=== PATIENT | female | born 1955 | race Caucasian/White ===

== ENCOUNTER 2019-11-27 09:58 | Outpatient (CLI) | payer OTHER, SELFPAY ==
--- NOTE | ~2019-11-27 | DEXA_ITS ---
Bone Density Report Name: Palak Marrero Age: 64 Sex: Female Ethnicity: White Date of : 1955 Indication: postmenopausal; height loss; prior fracture; cancer; Referring Provider: Angel Duong Study: Bone densitometry was performed. Exam Date: November 27, 2019 Accession number: [id number] Bone Density: Region BMD T-score Z-score Classification AP Spine (L1-L4) 1.031 -0.1 1.5 Normal Femoral Neck (Left) 0.722 -1.1 0.3 Osteopenia Total Hip (Left) 0.875 -0.5 0.6 Normal Total Hip Bilateral Avg 0.917 -0.2 0.9 Normal Femoral Neck (Right) 0.770 -0.7 0.7 Normal Total Hip (Right) 0.959 0.1 1.2 Normal World Health Organization criteria for BMD impression classify patients as: Normal (T-score at or above -1.0), Osteopenia (T-score between -1.0 and -2.5), or Osteoporosis (T-score at or below -2.5). 10-year Fracture Risk(1): Major Osteoporotic Fracture 12% Hip Fracture 0.8% Reported Risk Factors: [place] (), Neck BMD=0.722, BMI=38.0, previous fracture (1) FRAX(R) Version 3.08. Fracture probability calculated for an untreated patient. Fracture probability may be lower if the patient has received treatment. Previous Exams: Region Exam Age BMD T-score BMD Change BMD Change Date g/cm2 vs Baseline vs Previous AP Spine(L1-L4) 11/27/2019 64 1.031 -0.1 0.016(1.6%) 0.016(1.6%) 10/14/2014 58 1.014 -0.3 Total Hip(Left) 11/27/2019 64 0.875 -0.5 0.003(0.3%) 0.003(0.3%) 10/14/2014 58 0.872 -0.6 Total Hip(Right) 11/27/2019 64 0.959 0.1 0.077(8.7%)* 0.077(8.7%)* 10/14/2014 58 0.882 -0.5 *Denotes significance at 95% confidence level, LSC for AP Spine = 0.022 g/cm2, LSC for Total Hip = 0.027 g/cm2 Clinical Information Provided by Patient: Has had a low trauma fracture Has the following medical conditions: Cancer Patient maximum height was 67 Menopause Age: 46 Drinks caffeinated beverages Onset of menses at age 13 Number of children 0 Impression: The patient has low bone mass, based on the Left Femoral Neck T-score. The patient has an estimated ten-year risk of hip fracture of 0.8% and an estimated ten-year risk of major fracture of 12%, based on the WHO FRAX algorithm. The patient has risk factors, including: previous fracture. No significant bone loss was observed. Discussion: BONE DENSITY IS LOW AT ONE OR MORE SKELETAL SITES. This patient's lowest T-score is low at one or more skeletal sites. It meets
--- NOTE | ~2019-11-27 | MM_ITS ---
EXAMINATION: MM screening cody LT w jody HISTORY: Screening mammogram; status post right mastectomy for breast cancer in 2010. Recent cancer Muscle right mastectomy site. TECHNIQUE: Craniocaudal and mediolateral oblique 3-D tomosynthesis images were obtained and synthetic 2-D images were generated. CAD analysis was submitted and interpreted. COMPARISON: No prior mammogram is available for comparison at this institution. BREAST PARENCHYMAL COMPOSITION: There are scattered areas of fibroglandular density. FINDINGS: There is no evidence of suspicious mass, calcification, or architectural distortion to sugg est malignancy in either breast. There has been no suspicious interval change. IMPRESSION: 1. No mammographic evidence of malignancy. 2. Recommend routine screening mammography in one year. BI-RADS Category 1: Negative Reviewed, dictated and finalized at location A.
== END 2019-11-27 09:59 | disposition home or self-care (01) ==
PROVIDERS: Visit Provider Internal Medicine Hematology & Oncology
DX: Z12.31 Encounter for screening mammogram for malignant neoplasm of breast (principal); Z78.0 Asymptomatic menopausal state; M85.852 Other specified disorders of bone density and structure, left thigh
CPT/HCPCS: 77063; 77067; 77080

== ENCOUNTER 2020-03-12 11:57 | Outpatient (CLI) | payer OTHER, SELFPAY ==
--- NOTE | 2020-03-12 | ECG_ITS ---
Measurements Intervals Center [place] Rate: 73 P: 57 MI: 176 QRS: 67 QRSD: 134 T: 27 QT: 403 QTc: 445 Interpretive Statements SINUS RHYTHM VENTRICULAR PREMATURE COMPLEXES POSSIBLE LEFT ATRIAL ENLARGEMENT RIGHT BUNDLE BRANCH BLOCK BASELINE ARTIFACT- V4 ABNORMAL ECG Electronically Signed On 03-12-2020 12:59:02 CONCRETE BLOCK MASON by Franco Batista D.O.
== END 2020-03-12 11:58 | disposition home or self-care (01) ==
PROVIDERS: Visit Provider Internal Medicine Hematology & Oncology
DX: R00.1 Bradycardia, unspecified (principal); R94.31 Abnormal electrocardiogram [ECG] [EKG]
CPT/HCPCS: 93005

== ENCOUNTER 2020-12-23 10:08 | Outpatient (CLI) | payer OTHER, SELFPAY ==
--- NOTE | ~2020-12-23 | MM_ITS ---
EXAMINATION: MM screening cody BI w jody HISTORY: Screening mammogram; status post right mastectomy for breast cancer in 2010. TECHNIQUE: Craniocaudal and mediolateral oblique 3-D tomosynthesis images were obtained and synthetic 2-D images were generated. CAD analysis was submitted and interpreted. COMPARISON: 11/27/2019 left screening mammogram BREAST PARENCHYMAL COMPOSITION: There are scattered areas of fibroglandular density. FINDINGS: A Port-A-Cath catheter overlies the left axillary area. There is no evidence of suspicious mass, calcification, or architectural distortion to suggest malignancy in either breast. There has be en no suspicious interval change. IMPRESSION: 1. No mammographic evidence of malignancy. 2. Recommend routine screening mammography in one year. BI-RADS Category 1: Negative Reviewed, dictated and finalized at location A.
== END 2020-12-23 10:09 | disposition home or self-care (01) ==
PROVIDERS: Visit Provider Internal Medicine Hematology & Oncology
DX: Z12.31 Encounter for screening mammogram for malignant neoplasm of breast (principal)
CPT/HCPCS: 77063; 77067

== ENCOUNTER 2021-12-26 08:24 | Outpatient (CLI) | payer MEDICARE, SELFPAY ==
--- NOTE | ~2021-12-26 | DEXA_ITS ---
Bone Density Report Name: CAROLA DARDEN Age: 66 Sex: Female Ethnicity: White Date of : 1955 Indication: postmenopausal; screening for osteoporosis; height loss; prior fracture; cancer; Referring Provider: SHANEL DASILVA Study: Bone densitometry was performed. Exam Date: December 26, 2021 Accession number: [id number] Bone Density: Region BMD T-score Z-score Classification AP Spine(L1-L4) 0.986 -0.6 1.2 Normal Femoral Neck (Left) 0.739 -1.0 0.5 Normal Total Hip (Left) 0.872 -0.6 0.7 Normal Femoral Neck (Right) 0.718 -1.2 0.3 Osteopenia Total Hip (Right) 0.845 -0.8 0.4 Normal Total Hip Mean 0.858 -0.7 0.6 Normal World Health Organization criteria for BMD impression classify patients as: Normal (T-score at or above -1.0), Osteopenia (T-score between -1.0 and -2.5), or Osteoporosis (T-score at or below -2.5). 10-year Fracture Risk(1): Major Osteoporotic Fracture 13% Hip Fracture 1.0% Reported Risk Factors: [place] (), Neck BMD=0.718, BMI=37.2, previous fracture (1) FRAX(R) Version 3.08. Fracture probability calculated for an untreated patient. Fracture probability may be lower if the patient has received treatment. Previous Exams: Region Exam Age BMD T-score BMD Change BMD Change Date g/cm2 vs Baseline vs Previous AP Spine (L1-L4) 12/26/2021 66 0.986 -0.6 -0.028 (-2.8%) -0.045 (-4.3%) 11/27/2019 64 1.031 -0.1 0.016 (1.6%) 0.016 (1.6%) 10/14/2014 58 1.014 -0.3 Total Hip(Left) 12/26/2021 66 0.872 -0.6 0.000 (0.0%) -0.003 (-0.4%) 11/27/2019 64 0.875 -0.5 0.003 (0.3%) 0.003 (0.3%) 10/14/2014 58 0.872 -0.6 Total Hip(Right) 12/26/2021 66 0.845 -0.8 -0.037 (-4.2%) -0.114 (-11.9% 11/27/2019 64 0.959 0.1 0.077 (8.7%)* 0.077 (8.7%)* 10/14/2014 58 0.882 -0.5 *Denotes significance at 95% confidence level, LSC for AP Spine = 0.022 g/cm2, LSC for Total Hip = 0.027 g/cm2 Clinical Information Provided by Patient: Has had a low trauma fracture Has used the following medications: Vitamin D Has the following medical conditions: Cancer Patient maximum height was 66 Menopause Age: 46 Onset of menses at age 13 Number of children 0 Impression: The patient has low bone mass, based on the Right Femoral Neck T-score. The patient has an estimated ten-year risk of hip fracture of 1% and an estimated ten-year risk of major fracture of 13%, based on the WHO FRAX alg
--- NOTE | ~2021-12-26 | MM_ITS ---
EXAMINATION: MM screening cody BI w jody HISTORY: Screening left mammogram, history of right breast cancer TECHNIQUE: Craniocaudal and mediolateral oblique 3-D tomosynthesis images were obtained and synthetic 2-D images were generated. CAD analysis was submitted and interpreted. COMPARISON: 12/23/2020, 11/27/2019 BREAST PARENCHYMAL COMPOSITION: There are scattered areas of fibroglandular density. FINDINGS: A Port-A-Cath is noted. No suspicious mass, calcification, or architectural distortion are identified in either breast to suggest malignancy. There has been no suspicious interval change. IMPRESSION: 1. No mammographic evidence of malignancy. 2. Recommend routine screening mammography in one year. BI-RADS Category 1: Negative Reviewed, dictated and finalized at location A.
== END 2021-12-26 08:25 | disposition home or self-care (01) ==
LOC: ANHIMG 08:26
PROVIDERS: PCP Family Medicine; Visit Provider Internal Medicine Hematology & Oncology
DX: Z12.31 Encounter for screening mammogram for malignant neoplasm of breast (principal); Z78.0 Asymptomatic menopausal state; M85.851 Other specified disorders of bone density and structure, right thigh
CPT/HCPCS: 77063; 77067; 77080

== ENCOUNTER 2022-01-18 14:02 | Outpatient (CLI) | payer MEDICARE, SELFPAY ==
[2022-01-18 16:55] LABS: LDL Cholesterol Direct 132 mg/dL
[2022-01-18 17:00] LABS: Anion Gap 7 mmol/L (8-16); Blood Urea Nitrogen 17 mg/dL (7-17); Calcium 9.5 mg/dL (8.4-10.2); Carbon Dioxide 30 mmol/L (22-30); Chloride 103 mmol/L (98-107); Cholesterol 229 mg/dL (0-200); Estimated Glomerular Filt Rate > 60; Glucose 86 mg/dL (65-110); HDL Direct 47 mg/dL; Potassium 4.3 mmol/L (3.4-5.0); Sodium 140 mmol/L (137-145); Triglycerides 164 mg/dL (<150)
== END 2022-01-18 14:03 | disposition home or self-care (01) ==
LOC: ANHLAB 14:04
PROVIDERS: PCP Family Medicine; Visit Provider Family Medicine
DX: I10 Essential (primary) hypertension (principal)
CPT/HCPCS: 36415; 80048; 80061

== ENCOUNTER 2022-12-28 08:49 | Outpatient (CLI) | payer MEDICARE, SELFPAY ==
--- NOTE | ~2022-12-28 | MM_ITS ---
EXAMINATION: MM screening cody LT w jody HISTORY: Screening mammogram TECHNIQUE: Craniocaudal and mediolateral oblique 3-D tomosynthesis images were obtained and synthetic 2-D images were generated. CAD analysis was submitted and interpreted. COMPARISON: 12/22/2021, 12/23/2020, 11/23/2019 screening mammogram examinations BREAST PARENCHYMAL COMPOSITION: There are scattered areas of fibroglandular density. FINDINGS: History of right mastectomy for breast cancer. There is no evidence of suspicious mass, niki cification, or architectural distortion to suggest malignancy in either breast. There has been no carrie picious interval change. IMPRESSION: 1. Status post right mastectomy for breast cancer. No mammographic evidence of left breast malignancy . 2. Recommend routine screening mammography in one year. BI-RADS Category 1: Negative Reviewed, dictated and finalized at location A. IMPRESSION: 1. Status post right mastectomy for breast cancer. No mammographic evidence of left breast malignancy. 2. Recommend routine screening mammography in one year. BI-RADS Category 1: Negative
== END 2022-12-28 08:50 | disposition home or self-care (01) ==
PROVIDERS: PCP Family Medicine Sports Medicine; Visit Provider Internal Medicine Hematology & Oncology
DX: Z12.31 Encounter for screening mammogram for malignant neoplasm of breast (principal)
CPT/HCPCS: 77063; 77067

== ENCOUNTER 2023-05-02 08:43 | Outpatient (CLI) | payer MEDICARE, SELFPAY ==
[2023-05-02 13:56] LABS: Cholesterol 218 mg/dL (0-200); HDL Direct 45 mg/dL; Triglycerides 92 mg/dL (<150)
[2023-05-02 14:06] LABS: LDL Cholesterol Direct 134 mg/dL
[2023-05-02 14:45] LABS: Hepatitis C Virus Antibody Negative (Negative)
== END 2023-05-02 08:44 | disposition home or self-care (01) ==
LOC: ANHLAB 08:46
PROVIDERS: PCP Family Medicine Sports Medicine; Visit Provider Internal Medicine Hematology & Oncology
DX: Z00.00 Encounter for general adult medical examination without abnormal findings (principal)
CPT/HCPCS: 36415; 80061; 84443; 86803

== ENCOUNTER 2023-12-10 10:50 | Outpatient (CLI) | payer MEDICARE, SELFPAY ==
[2023-12-10 11:44] LABS: Anion Gap 7 mmol/L (4-12); Blood Urea Nitrogen 24 mg/dL (7-17); Calcium 9.6 mg/dL (8.4-10.2); Carbon Dioxide 29 mmol/L (22-30); Chloride 101 mmol/L (98-107); Estimated Glomerular Filt Rate > 60; Glucose 99 mg/dL (65-110); Potassium 4.2 mmol/L (3.4-5.0); Sodium 137 mmol/L (137-145)
== END 2023-12-10 10:51 | disposition home or self-care (01) ==
LOC: ANHSURGERY 10:56
PROVIDERS: Anesthesiology; PCP Family Medicine Sports Medicine; Visit Provider Surgery
DX: I10 Essential (primary) hypertension (principal); Z01.818 Encounter for other preprocedural examination
CPT/HCPCS: 36415; 80048

== ENCOUNTER 2023-12-13 00:34 | Day surgery (SDC) | payer MEDICARE, SELFPAY ==
--- NOTE | 2023-12-07 13:27 | PC.NURSE ---
Report to the Outpatient Waiting Room, entrance under the green pavilion located off [facility], at time __6 AM on date 12/13/23 . Planned Procedure Time: ___7:30 AM .? Time changes happen often and if your time is changed the preop area will call you the afternoon before. - You and your visitor will be asked to self-screen and do not enter if you have any COVID symptoms. Please call surgeon if you need to reschedule. - A mask is optional within the hospital at this time. Patients may have clear liquids (water, carbonated beverages, clear teas, apple juice) until 3 hours prior to surgery( 4:30AM ) with a maximum of 20 ounces. - No food from midnight until time of surgery and no smoking - Infants may have breast milk until 4 hours before surgery, infant formula 6 hours prior to surgery. - Children will be allowed to drink immediately following surgery.? If applicable, please bring a bottle or sippy cup to assist with drinking. Juice, water, soda, and popsicles are readily available.? For infants on formula, please bring formula the day of surgery.? Pacifiers are allowed. Take only the following medications with a SIP of water on the morning of surgery: _CARVEDILOL DO NOT STOP ANY OF YOUR OTHER PRESCRIPTION MEDICATIONS PRIOR TO SURGERY EXCEPT THE FOLLOWING Medications to discontinue per physician ____HOLD ALL VITAMINS 3 DAYS PRE OP Date to take last dose__12/09/23 Please no make-up, nail syrian, hairspray, perfume, deodorant, or body powder the day of surgery.? No jewelry (including any body piercings) or valuables the day of surgery, leave them at home.? Please take a shower or bath the night before, or the morning of, surgery with an antibacterial soap.? Wear comfortable, loose fitting clothing.? Children are encouraged to wear pajamas. - Jewelry must be removed prior to entering the operating room.? Rings and piercings that are not removed may be cut off. - The hospital will not accept responsibility for valuables.? - Please leave all valuables, including medications, at home the day of surgery. If you are going home after surgery, a licensed race car driver must drive you home.? - NO public transportation without another adult if you receive anesthesia. - We recommend that an adult stay with you for 24 hours following discharge. - We also recommend that you do not drive, make important decision, drink alcoholic beverages, or take any drugs that were not prescribed by your health care provider for at least 24 hours after your discharge time. For Pediatric surgeries, we recommend two adults accompany the child home. Follow any additional instructions given to you from your surgeon. Telephone instructions given to ___PATIENT and asked if any additional questions and then verbalized understanding. Patient advised to call surgeon office or pre surgery nurse liaison [phone] if any additional questions.
[2023-12-07 13:33] VITALS: BMI 36.1
[2023-12-13 09:12] VITALS: BP 131/61; PULSE 59; RESP 16; TEMP 36.5; O2SAT 99
[2023-12-13] MEDS: LACTATED RINGERS 1,000 ML 30 ML IV CONT (09:20)
--- NOTE | 2023-12-13 09:28 | PM.IMHP ---
H&P: HPI History of Present Illness Date/Time: 12/13/23 09:28 Chief Complaint: Right breast cancer Narrative: The patient is a 68-year-old female status post treatment of metastatic right breast cancer. The patient has a left-sided Port-A-Cath placed 12 years ago. The patient reports that at this time she has been cleared by Oncology for removal. Patient reports no issues with her port. She reports that she flushes it without issue at the prescribed intervals. Review of Systems Review of Systems: All systems reviewed & are unremarkable except as noted in HPI and below PMFSH Past Medical History Medical History Bradycardia History of breast cancer (~2010) Wrist fracture, left (~05/2014) Wrist fracture, right (~12/2009) Pins placed ~2015 Surgical History Surgical History H/O mastectomy (~2010) Family History Family History Sibling Hypertension Asthma Mother Family history of anemia Father Family history of chronic obstructive pulmonary disease Family history of malignant neoplasm of esophagus Other Family history of arthritis Family history of malignant neoplasm Social History Social History Smoking status: Never smoker Alcohol intake: never Living arrangements: with family Spiritual care concerns: No Meds Home Medications and Allergies Home Medications Medication Instructions Recorded Confirmed Type exemestane 25 mg tablet 25 mg PO DAILY 03/15/20 12/13/23 History carvedilol 6.25 mg tablet 6.25 mg PO BID 12/07/23 12/13/23 History chlorthalidone 25 mg tablet 25 mg PO HS 12/07/23 12/13/23 History cholecalciferol (vitamin D3) 25 25 mcg PO EVERY OTHER DAY 12/07/23 12/13/23 History mcg (1,000 unit) tablet lisinopril 10 mg tablet 10 mg PO DAILY 12/07/23 12/13/23 History Allergies Allergy/AdvReac Type Severity Reaction Status Date / Time No Known Allergies Allergy Verified 12/13/23 08:39 Vital Signs Vital Signs - 24 hr 12/13/23 09:12 Temperature 36.5 C Pulse Rate 59 L Respiratory Rate 16 Blood Pressure 131/61 Pulse Oximetry 99 Oxygen Delivery Room Air Exam Const: General: cooperative, comfortable and no acute distress Chest: Other: Left chest Port-A-Cath clean dry and intact Resp: Auscultation: clear to auscultation bilaterally Cardio: Rate: regular rate Rhythm: regular rhythm GI: Inspection: normal to inspection Assessment and Plan Assessment and plan (1) Breast CA: Code(s): C50.919 - Malignant neoplasm of unspecified site of unspecified female breast Status: Acute Assessment and Plan: status post treatment, has been cleared by Oncology port removal, will proceed with port removal in the operating room today
--- NOTE | 2023-12-13 09:31 | WPDHPUPDATE1 ---
History and Physical Update Update Date/Time: 12/13/23 09:31 History and Physical has been reviewed, including an updated exam of the patient. There are NO changes in the patient's condition. Risks, benefits, and alternatives have been discussed and questions answered. Patient agrees to proceed with procedure.
--- NOTE | 2023-12-13 09:38 | P.PNAN_ITS ---
Anes - Initial Pre Proc Eval Procedure: Operation Date: 12/13/23 10:30 Proposed Procedures p Removal Edie Cath - Jennifer Long MD Date/Time: 12/13/23 09:38 Surgeon: Jennifer Long MD Pre Op Diagnosis: malignant neoplasm of central right breast Patient Data Age: 68 Gender: F Height: 1.65 m Weight: 101.3 kg Last Vital Signs Temp 36.5 C 12/13/23 09:12 Pulse 59 L 12/13/23 09:12 Resp 16 12/13/23 09:12 BP 131/61 12/13/23 09:12 Pulse Ox 99 12/13/23 09:12 O2 Del Method Room Air 12/13/23 09:12 Allergies Allergy/AdvReac Type Severity Reaction Status Date / Time No Known Allergies Allergy Verified 12/13/23 08:39 Home Medications Medication Instructions Recorded Confirmed Type exemestane 25 mg tablet 25 mg PO DAILY 03/15/20 12/13/23 History carvedilol 6.25 mg tablet 6.25 mg PO BID 12/07/23 12/13/23 History chlorthalidone 25 mg tablet 25 mg PO HS 12/07/23 12/13/23 History cholecalciferol (vitamin D3) 25 25 mcg PO EVERY OTHER DAY 12/07/23 12/13/23 History mcg (1,000 unit) tablet lisinopril 10 mg tablet 10 mg PO DAILY 12/07/23 12/13/23 History Patient hx anesthesia problems: none Family hx anesthesia problems: none Results Review: All pre-operative results and documents have been reviewed as part of the pre- operative evaluation. [facility] Past Medical History Medical History Bradycardia History of breast cancer (~2010) Wrist fracture, left (~05/2014) Wrist fracture, right (~12/2009) Pins placed ~2015 Surgical History Surgical History H/O mastectomy (~2010) Family History Family History Sibling Hypertension Asthma Mother Family history of anemia Father Family history of chronic obstructive pulmonary disease Family history of malignant neoplasm of esophagus Other Family history of arthritis Family history of malignant neoplasm Social History Social History Smoking status: Never smoker Alcohol intake: never Living arrangements: with family Spiritual care concerns: No Anes - Eval Final PreProcedure Day of Procedure 12/13/23 09:38 Patient weight: obese Heart: regular rate and rhythm Lungs: clear to auscultation Airway: Mallampati scale class 1 Neurological: alert and oriented Last oral intake: >/= 8 hours ASA classification: III Emergent: no Anesthetic plan: proceed Anesthesia type and monitoring: general GIVS and standard monitoring Results Review: All pre-operative results and documents have been reviewed as part of the pre- operative evaluation. Informed Consent: The patient's anesthetic plan and its attendant risks and benefits were discussed with the patient/family/POA. Questions were solicited and answers provided to the satisfaction of the patient/family/POA.
[2023-12-13] MEDS: ceFAZolin 2 GM/D5W 50 ML 2 GM/50 ML BAG IVPB (09:53)
[2023-12-13] MEDS: BUPIVACAINE/EPINEPHRINE 0.5% 10 ML VIAL 20 ML INFILTRATE (09:53)
--- NOTE | 2023-12-13 10:14 | W.PM.PROC2 ---
Procedure Note - Detailed Date of Procedure 12/13/23 Pre-op Diagnosis metastatic right breast cancer Post-op Diagnosis Same Procedure Performed removal L chest VAD Surgeon Jennifer Long MD Anesthesia MAC and Local Indications 68 y/o F s/p treatment for metastatic R breast cancer. Pt had L sided VAD placed about 12 years ago. Findings [facility]J VAD Description of Procedure The patient was taken to the operating room and placed in the supine position. After adequate induction of MAC anesthesia, the patient was then prepped and draped in the normal sterile fashion. A time-out was then done to verify the patient's identity, as well as the procedure being performed. I began by localizing the area of the previously placed port in the left chest. After the area was adequately anesthetized, I made an incision through the previous incision to gain access to the port in the subcutaneous tissue. I was then able to identify the port and using dissection with the Bovie cautery, I was able to free the reservoir from the subcutaneous pocket. The reservoir was being held in by 2 sutures and these were subsequently cut. I was then able to remove the reservoir from the pocket. I then removed the catheter from the left internal jugular vein in full. I then held pressure at the level the left internal jugular vein for approximately 5 minutes. Hemostasis was noted and I irrigated the pocket. I then closed the subcutaneous tissue with 3-0 Vicryl suture. The skin was closed with 4-0 Monocryl subcuticular suture. Dermabond was placed on the wound. The patient tolerated the procedure well and was alert and awake in the operating room postoperative. The patient will be sent to the recovery room in stable condition. Estimated Blood Loss 5 Drains No Packing No Pathology None sent Complications No immediate complications Condition Stable Disposition PACU [facility] Billing Surgery - Charge Forward: Surgery Billing
[2023-12-13 10:21] VITALS: BP 100/46; PULSE 60; RESP 18; O2SAT 97
[2023-12-13 10:50] VITALS: BP 106/51; PULSE 58; RESP 20
== END 2023-12-13 11:15 | disposition home or self-care (01) ==
PROVIDERS: PCP Family Medicine Sports Medicine; Visit Provider Surgery
PROC: (CPT 36589; principal; 2023-12-13 10:30)
DX: Z45.2 Encounter for adjustment and management of vascular access device (principal); E66.9 Obesity, unspecified; Z68.37 Body mass index [BMI] 37.0-37.9, adult; Z98.890 Other specified postprocedural states; Z85.3 Personal history of malignant neoplasm of breast; Z80.0 Family history of malignant neoplasm of digestive organs
CPT/HCPCS: 36590; 36415; 80048; J0690; J2003; J2250; J2704; J3010; J7120

== ENCOUNTER 2023-12-31 07:53 | Outpatient (CLI) | payer MEDICARE, SELFPAY ==
--- NOTE | ~2023-12-31 | MM_ITS ---
EXAMINATION: MM screening cody LT w jody HISTORY: Screening mammogram TECHNIQUE: Craniocaudal and mediolateral oblique 3-D tomosynthesis images were obtained and synthetic 2-D images were generated. CAD analysis was submitted and interpreted. COMPARISON: 12/28/2022, 12/26/2021, 12/23/2020 BREAST PARENCHYMAL COMPOSITION:Not Dense. There are scattered areas of fibroglandular density. FINDINGS: No suspicious mass, calcification, or architectural distortion are identified in either shelley ast to suggest malignancy. There has been no suspicious interval change. IMPRESSION: No mammographic evidence of malignancy. Recommend routine screening mammography in one year. BI-RADS Category 1: Negative Reviewed, dictated and finalized at location .
== END 2023-12-31 07:54 | disposition home or self-care (01) ==
LOC: ANHIMG 07:55
PROVIDERS: PCP Family Medicine Sports Medicine; Visit Provider Internal Medicine Hematology & Oncology
DX: Z12.31 Encounter for screening mammogram for malignant neoplasm of breast (principal)
CPT/HCPCS: 77063; 77067

== ENCOUNTER 2024-03-03 08:17 | Outpatient (CLI) | payer MEDICARE, SELFPAY ==
--- NOTE | ~2024-03-03 | DEXA_ITS ---
Bone Density Report Name: CAROLA DARDEN Age: 68 Sex: Female Ethnicity: White Date of : 1955 Indication: postmenopausal; screening for osteoporosis; parental hip fracture; prior fracture; cancer; Referring Provider: SHANEL DASILVA Study: Bone densitometry was performed. Exam Date: March 03, 2024 Accession number: [id number] Bone Density: Region BMD T-score Z-score Classification AP Spine(L1-L4) 1.005 -0.4 1.5 Normal Femoral Neck (Left) 0.712 -1.2 0.4 Osteopenia Total Hip (Left) 0.932 -0.1 1.3 Normal Femoral Neck (Right) 0.759 -0.8 0.8 Normal Total Hip (Right) 0.974 0.3 1.6 Normal Total Hip Mean 0.953 0.1 1.5 Normal World Health Organization criteria for BMD impression classify patients as: Normal (T-score at or above -1.0), Osteopenia (T-score between -1.0 and -2.5), or Osteoporosis (T-score at or below -2.5). 10-year Fracture Risk(1): Major Osteoporotic Fracture 22% Hip Fracture 1.7% Reported Risk Factors: [place] (), Neck BMD=0.712, BMI=38.3, previous fracture, parental fracture (1) FRAX(R) Version 3.08. Fracture probability calculated for an untreated patient. Fracture probability may be lower if the patient has received treatment. Previous Exams: Region Exam Age BMD T-score BMD Change BMD Change Date g/cm2 vs Baseline vs Previous AP Spine (L1-L4) 03/03/2024 68 1.005 -0.4 -0.009 (-0.9%) 0.019 (1.9%) 12/26/2021 66 0.986 -0.6 -0.028 (-2.8%) -0.045 (-4.3%) 11/27/2019 64 1.031 -0.1 0.016 (1.6%) 0.016 (1.6%) 10/14/2014 58 1.014 -0.3 Total Hip(Left) 03/03/2024 68 0.932 -0.1 0.060 (6.8%)* 0.060 (6.9%)* 12/26/2021 66 0.872 -0.6 0.000 (0.0%) -0.003 (-0.4%) 11/27/2019 64 0.875 -0.5 0.003 (0.3%) 0.003 (0.3%) 10/14/2014 58 0.872 -0.6 Total Hip(Right) 03/03/2024 68 0.974 0.3 0.092 (10.5%)* 0.130 (15.3%)* 12/26/2021 66 0.845 -0.8 -0.037 (-4.2%) -0.114 (-11.9% 11/27/2019 64 0.959 0.1 0.077 (8.7%)* 0.077 (8.7%)* 10/14/2014 58 0.882 -0.5 *Denotes significance at 95% confidence level, LSC for AP Spine = 0.022 g/cm2, LSC for Total Hip = 0.027 g/cm2 Clinical Information Provided by Patient: Has had a low trauma fracture Parent has had a hip fracture Has used the following medications: HRT (i.e. estrogen/hormone therapy), Vitamin D Has the following medical conditions: Cancer Patient maximum height was 66 Menopause Age: 46 No regular weight bearing exercise Onset of menses at age 13 Number of children 0 Impression: The patient has low bone mass, based on the Left Femoral Neck T-score. The patient has an estimated ten-year risk of hip fracture of 1.7% and an estimated ten-year risk of major fracture of 22%, based on the WHO FRAX algorithm. The patient has risk factors, including: parental hip fracture, previous fracture. No significant bone loss was observed. Discussion: BONE DENSITY IS LOW AT ONE OR MORE SKELETAL SITES. THE PATIENT'S BMD AND CLINICAL RISK FACTORS CONTRIBUTE TO THIS PATIENT'S INCREASED RISK OF FRACTURE. This patient's lowest T-score is low at one or more skeletal sites. It meets the World Health Organization's (WHO) criteria for ?low bone mass? (T-score between -1.0 and -2.5). The patient's 10-year risk of a major osteoporotic fracture as calculated by FRAX exceeds the threshold where pharmacological therapy is recommended by the National Osteoporosis Foundation (NOF). However, all treatment decisions require clinical judgment and consideration of individual patient factors, including patient preferences, comorbidities, previous drug use, risk factors not captured in the FRAX model (e.g., frailty, falls, vitamin D deficiency, increased bone turnover, interval significant decline in bone density) and possible under or overestimation of fracture risk by FRAX. The patient should follow a healthful lifestyle (good nutrition with adequate calcium and vitamin D, and appropriate weight-bearing exercise). Follow-Up: Consider a repeat BMD and Vertebral Fracture Assessment (VFA) exam in 2 years or sooner if medically necessary, to reassess this patient's status. Reported by: YG on 03/03/2024 8:58:00 AM. Reviewed, dictated and finalized at location Ilir ORTIZ
== END 2024-03-03 08:18 | disposition home or self-care (01) ==
LOC: ANHIMG 08:20
PROVIDERS: PCP Family Medicine Sports Medicine; Visit Provider Internal Medicine Hematology & Oncology
DX: M81.0 Age-related osteoporosis without current pathological fracture (principal); M85.88 Other specified disorders of bone density and structure, other site; Z13.820 Encounter for screening for osteoporosis
CPT/HCPCS: 77080

== ENCOUNTER 2024-11-20 14:44 | Outpatient (CLI) | payer MEDICARE, SELFPAY ==
--- OUTSIDE RECORDS SUMMARY | 2024-11-20 14:47 | XMS_ITS ---
Author Organization [facility] Address [address] [place] [address] Phone Care Team Providers Care Jewelry Maker Name Role Phone Jeaneth Ryan MD Primary Care Provider Active Problems Patient Care Coordination No te Formatting of this note migh t be different from the original. Dr. 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 Past Treatment and Therapy Plans ONCOLOGY THERAPY PLAN Plan Name Start Date Discontinue Date Treatment Medications Discontinue Reason Plan Provider PORT FLUSH PROTOCOL 09/29/2013 02/13/2020 No medications scheduled. Therapy Complete Margareth Shoemaker MD ONCOLOGY TREATMENT Plan Name Start Date Discontinue Date Treatment Medications Discontinue Reason Plan Provider Cycles OP ONC BREAST PACLITAXEL WEEKLY X 12 0 08/13/2020 PACLitaxel (TAXOL) IVPBtrastuzuma b-anns (KANJINTI) IVPB Therapy Complete Margareth Shoemaker MD Treatment not started Lifetime Dose Tracking * Chemical Lifetime Dose Automatic Entry Manual Entr y Effective Dose 25.2 mSv 25.2 mSv 0 mSv Total DLP 1,350 DLP 1,350 DLP 0 DLP CTDIvol Max 20.5 mGy 20.5 mGy 0 mGy CTDIvol Min 11.1 mGy 11.1 mGy 0 mGy Resolved Problems Problem Noted Date Diagnosed Date Resolved Date Right bundle branch block 03/19/2020 Malignant neoplasm of female breast 10/10/2013 12/27/2020
--- OUTSIDE RECORDS SUMMARY | 2024-11-20 14:47 | XMS_ITS | Clinical Summary ---
Author Organization [facility] Address [address] [place] [address] Phone Care Team Providers Care Bible Teacher Name Role Phone Jeaneth Barr MD Primary Care Provider Allergies No known active allergies Medications Blood Pressure Monitor Kit 1 Each by Other route daily. 3 Active cholecalciferol , Vitamin D3, (VITAMIN D3) 25 mcg (1,000 unit) Capsule Take by mouth daily. Every other day Active lisinopriL (PRINIVIL) 10 mg tablet TAKE 1 TABLET (10 MG) BY MOUTH DAILY. 90 Tablet 2 5 Active chlorthalidone (HYGROTON) 25 mg tablet TAKE 1 TABLET BY MOUTH EVERY DAY 90 Tablet 3 5 Active carvediloL (COREG) 6.25 mg tablet TAKE 1 TABLET BY MOUTH TWICE A DAY WITH FOOD 180 Tablet 3 5 Active exemestane (AROMASIN) 25 mg tabletIndicatio ns:Malignant neoplasm of central portion of right breast (CMS/HCC) TAKE 1 TABLET (25 MG) BY MOUTH DAILY AFTER BREAKFAST. 90 Tablet 3 5 Active exemestane (AROMASIN) 25 mg tabletIndicatio ns:Malignant neoplasm of central portion of right breast (CMS/HCC) Take 1 Tablet (25 mg) by mouth daily after breakfast. 90 Tablet 3 4 11/05/19 25 Discontinued Active Problems Patient Care Coordination No te Formatting of this note migh t be different from the original. Dr. Camacho Tao - Gas Tender (HH) Problem Noted Date Diagnosed Date HLD (hyperlipidemia) 05/24/2023 Overview (09/25/2024): Declined med 09/26 Hypertension 07/02/2020 Ventricular ectopy 03/19/2020 Overview (09/18/2023): 16% of all HBs holter 03/25 3.5% of all HBs holter 09/22 <<<1% of all HBs (10 total) holter 09/25 Nl LV fxn echo 03/25 Solitary pulmonary nodule 10/10/2013 Breast cancer 05/03/2010 Resolved Problems Problem Noted Date Diagnosed Date Resolved Date Right bundle branch block 03/19/2020 Malignant neoplasm of female breast 10/10/2013 12/27/2020 Encounters Date Type Department Care Team Description 11/18/2024 External Device Data STL ABSTRACTION Provider, Abstract 11/04/2024 External Device Data STL ABSTRACTION Provider, Abstract 11/02/2024 Refill [facility] Oncology and Hematology - [place] [address] [address] Angel Duong MD Malignant neoplasm of central portion of right breast (CMS/HCC) 10/18/2024 Refill [facility] Heart and Vascular At [address] [place] [address] Camacho Tao MD 10/14/2024 External Device Data STL ABSTRACTION Provider, Abstract 09/25/2024 10:45 AM CDT Office Visit [facility] Heart and Vascular At [address] [place] [address] Camacho Tao MD Ventricular ectopy (Primary Dx); Hypertension; Hyperlipidemia 09/17/2024 External Device Data STL ABSTRACTION Provider, Abstract 09/17/2024 External Device Data STL ABSTRACTION Provider, Abstract 08/20/2024 External Device Data STL ABSTRACTION Provider, Abstract from Last 3 Months Family History Medical History Relation Name Comments Hypertension Brother Cancer Father Breast Cancer Maternal Aunt Colon Cancer Mother anal cancer Rectal Cancer Mother Has had treatm ent. Hypertension Sister 1 Hypertension Sister 2 Relation Name Status Comments Brother Alive Father PASSED FROM [place] Maternal Aunt Mother Alive Sister 1 Alive Sister 2 Alive Social History Tobacco Use Types Packs/Day Years Used Date Smoking Tobacco: Never Smokeless Tobacco: Never Tobacco Cessation:Counseling Given: Not Answered Alcohol Use Standard Drinks/Week Comments Not Currently 0 (1 standard drink = 0.6 oz pur e alcohol) 1/6mo Feeling Safe Answer Date Recorded Are you in a relationship wi th someone who hurts you emotionally and/or physically? No 06/26/2023 Comments No Sex and Gender Information Value Date Recorded Sex Assigned at Not on file Legal Sex Female 3:52 AM COMPOSITION MIXER Gender Identity Not on file Sexual Orientation Not on file Occupation Industry Job Start Date Job End Date Not on file Not on file Not on file Not on file Last Filed Vital Signs Vital Sign Reading Time Taken Comments Blood Pressure 116/66 09/25/2024 10:35 AM CDT Pulse 59 09/25/2024 10:35 AM CDT Temperature 36.4 C (97.6 F) 05/28/2024 1:53 PM CDT Respiratory Rate 16 05/28/2024 1:53 PM CDT Oxygen Saturation 96% 09/25/2024 10:35 AM CDT Inhaled Oxygen Concentration - - Weight 107 kg (236 lb) 09/25/2024 10:35 AM CDT Height 165.1 cm (5' 5) 09/25/2024 10:35 AM CDT Body Mass Index 39.27 09/25/2024 10:35 AM CDT Plan of Treatment Upcoming Encounters Date Type Department Care Team (Late st Contact Info) Description 11/27/2024 1:15 PM CDT Office Visit [facility] Oncology and Hematology - [place] [address] [facility] [address] [place] [address] Angel Duong MD [address] [place] [facility] [address] [place] [address] 03/19/2025 10:45 AM COMPOSITION MIXER Office Visit [facility] Heart [facility] Vascular At [place] [address] [facility] [address] [place] [address] Camacho Tao MD [facility] [address] [facility] [address] [place] [address] Health Maintenance Due Date Last Done Comments Pre-Diabetes and Diabetes Screening 1955 DTAP/TDAP/TD VACCINES (1 - Tdap) 11/25/1975 FIT-DNA Q 3 years 2001 FIT/FOBT Q 1 year 2001 Flex Sig/CT Colonography Q 5 years 2001 PNEUMOCOCCAL VACCINE 50+ YEA RS (1 of 1 - PCV) 2006 ZOSTER VACCINE (1 of 2) 2006 Medicare [place]age ([place]) Preventative Visit/Annual Wellness Visit 03/05/2024 04/05/2023 INFLUENZA VACCINE (#1) 2024 BREAST CANCER SCREENING 12/30/2024 12/31/19 24, 12/23/2020, 11/27/2019, Additional history exists COLORECTAL SCREENING 06/25/2028 06/26/2023, 06/26/19 Colorectal Cancer Screening 06/25/2028 OSTEOPOROSIS SCREENING 03/04/2029 , 11/27/2019, 11/27/2019, Additional history exists RSV VACCINE (60+ or ) (1 - 1-dose 75+ series) 11/25/2031 Medical Devices Implanted Type Area Heater Operator Device Identifier Shelf Expiration Date Model / Serial / Lot Log [id number] - Vascular Access Ports - 1 - Port Pwrprt Mri 8fr [id number] Implanted:Qty: 1 on 05/03/2010 at [facility] Port Left: Chest Wall CR BARD- ACCESS SYS 10/04/2011 [id number] / [id number] / [id number] Procedures Procedure Name Priority Date/Time Associated Diagnosis Comments XR DEXA BONE DENSITY W VERTEBRAL FX Routine 03/04/2024 12:14 PM COMPOSITION MIXER MAMMO SCREENING UNILATERAL LEFT Routine 12/31/2023 2:36 PM CDT COLONOSCOPY REPORT 06/26/2023 9: 23 AM CDT from Last 3 Months or Most Recently Relevant to Health Maintenance Results * XR DEXA BONE DENSITY W VERTEBRAL FX (03/04/2024 12:14 PM COMPOSITION MIXER) Anatomical Region Laterality Modality Spine Other us Angel Duong MD DIAGNOSTIC IMAGING ORDERABLES F inal Result * MAMMO SCREENING UNILATERAL LEFT (12/31/2023 2:36 PM CDT) Anatomical Region Laterality Modality Breast Left Mammography us Angel Duong MD MAMMO ORDERABLES Final Result * COLONOSCOPY REPORT (06/26/2023 9:23 AM CDT) Narrative Procedure Note Claudia Hinkle MD - 06/26/2023 9:23 AM CDT [facility] Endoscopy Patient Name: Palak Marrero Procedure Date: 06/26/2023 Date of : 1955 Attending MD: Claudia Hinkle MD, Procedure: Colonoscopy Indications: Screening patient at increased risk: Family history of 1st-degree relative with colorectal cancer at age 60 years (or older), mother. Had a colonoscopy > 10 years ago. We do not have those records. Providers: Claudia Hinkle MD Referring MD: Jeaneth Barr MD Medicines: Monitored Anesthesia Care Complications: No immediate complications. Procedure: Informed consent was obtained for the procedure, including moderate sedation after risks were discussed. Based on the pre-procedure assessment, including review of the patient's medical history, medications, allergies, and review of systems, the patient was deemed to be an appropriate candidate for sedation. A timeout was performed. Continuous ECG monitoring, pulse oximetry, blood pressure monitoring, and direct observation were performed. The Colonoscope was introduced through the anus and advanced to the cecum, identified by appendiceal orifice and ileocecal valve. The colonoscopy was performed without difficulty. The patient tolerated the procedure well. The quality of the bowel preparation was good. Estimated Blood Loss: Estimated blood loss: none. Findings: The colon (entire examined portion) appeared normal. No polyps, masses or inflammation. Non-bleeding internal hemorrhoids were found during retroflexion and during digital exam. The hemorrhoids were mild. Impression: - The entire examined colon is normal. - Non-bleeding internal hemorrhoids. - No specimens collected. Recommendation: - Repeat colonoscopy in 5 years for screening purposes due to family history. Claudia Hinkle MD 06/26/2023 9:23:12 AM This report has been signed electronically. Number of Addenda: [address]; [place] [address] Claudia Hinkle MD GI PROCEDURE ORDERABLES Final Result from Last 3 Months or Most Recently Relevant to Health Maintenance Insurance RX [facility] [employer] [facility] [id number] [facility] [id number] Advance Directives For more information, please contact: [phone] * Full Code (Latest Code Status on File) Date Activated Date Inactivated Comments 06/26/2023 8:01 AM 06/26/2023 11:59 AM * Full Code Date Activated Date Inactivated Comments 10/18/2019 8:28 AM 10/18/2019 6:40 PM * Full Code Date Activated Date Inactivated Comments 05/18/2010 4:35 PM 05/19/2010 11:06 AM * Full Code Date Activated Date Inactivated Comments 05/18/2010 11:08 AM 05/18/2010 4:35 PM * Full Code Date Activated Date Inactivated Comments 05/10/2010 1:17 PM 05/10/2010 5:45 PM Care Teams Bible Teacher Relationship Specialty Start Date End Date Jeaneth Barr MD PCP - General Family Practice 03/30/23
--- OUTSIDE RECORDS SUMMARY | 2024-11-20 14:47 | XMS_ITS | Encounter Summary ---
Author Organization [facility] Address [address] [place] [address] Care Team Providers Care Gang Sawyer Name Role Phone Jeaneth Ryan MD Primary Care Provider Encounter Details Date Type Department Care Team (Late st Contact Info) Description 11/18/2024 External Device Data STL ABSTRACTION Provider, Abstract NO ADDRESS ON FILE Social History Tobacco Use Types Packs/Day Years Used Date Smoking Tobacco: Never Smokeless Tobacco: Never Alcohol Use Standard Drinks/Week Comments Not Currently 0 (1 standard drink = 0.6 oz pur e alcohol) 1/6mo Feeling Safe Answer Date Recorded Are you in a relationship wi th someone who hurts you emotionally and/or physically? No 06/26/2023 Comments No Sex and Gender Information Value Date Recorded Sex Assigned at Not on file Legal Sex Female 3:52 AM MIXER ATTENDANT Gender Identity Not on file Sexual Orientation Not on file Occupation Industry Job Start Date Job End Date Not on file Not on file Not on file Not on file documented as of this encounter Plan of Treatment Upcoming Encounters Date Type Department Care Team (Late st Contact Info) Description 11/27/2024 1:15 PM CDT Office Visit [facility] - [place] [address] [facility] [address] [place] [address] Angel Duong MD [address] [facility] [address] [place] [address] 03/19/2025 10:45 AM MIXER ATTENDANT Office Visit [facility] Heart [facility] V[facility] At [address] [place] [address] Camacho Tao MD [address] [facility] [address] [place] [address] documented as of this encounter Visit Diagnoses Not on filedocumented in this encounter Care Teams Gang Sawyer Relationship Specialty Start Date End Date Jeaneth Ryan MD PCP - General Family Practice 03/30/23 documented as of this encounter
--- OUTSIDE RECORDS SUMMARY | 2024-11-20 14:48 | XMS_ITS | Clinical Summary ---
Author Organization [facility] [address] Address [address] [place] [address] Care Team Providers Care Inspection Manager Name Role Phone Camacho Tao MD Unavailable Angel Duong MD Unavailable [phone] Triny Conley MD Unavailable Padma Goodson NP Primary Care Provider [phone] Allergies No known active allergies Medications carvediloL (COREG) 6.25 mg tablet Take 1 tablet (6.25 mg total) by mouth 2 (two) times a day with meals Active exemestane (AROMASIN) 25 mg tablet Take 1 tablet (25 mg total) by mouth daily 05/04/2022 Active blood pressure monitor kitIndications:Pr imary hypertension 1 each daily 1 kit 12/28/2022 Active chlorthalidone (HYGROTON) 25 mg tablet Take 1 tablet (25 mg total) by mouth daily Active lisinopriL (PRINIVIL,ZESTRIL ) 10 mg tablet Take 1 tablet (10 mg total) by mouth daily 07/17/2023 Active cholecalciferol (VITAMIN D-3) 3,000 unit tablet 1 tablet (3,000 Units total) once a week Active Active Problems Problem Noted Date Diagnosed Date Class 3 severe obesity due t o excess calories with serious comorbidity and body mass index (BMI) of 40.0 to 44.9 in adult 05/01/2023 Assessment & Plan (06/12/2024 9:09 AM CDT): Healthy, low carbohydrate lifestyle and exercise for 150min/week recommended. Assessment & Plan (05/01/2023 1:20 PM LIVESTOCK BRANDS INSPECTOR): Chronic. Suboptimally controlled. Counseled on healthy diet continued exercise effort and weight loss MELI (obstructive sleep apnea) 03/12/2023 Assessment & Plan (06/12/2024 9:11 AM CDT): Pt states using cpap for 8 hours/night 7 nights/wk Pt states less daytime somnolence, feels better when using it. Would recommend the continued use of cpap Following with Dr Conley (sleep med) Assessment & Plan (05/01/2023 1:20 PM LIVESTOCK BRANDS INSPECTOR): Recent diagnosis. Has been started on CPAP. She is working with sleep Medicine History of right mastectomy 10/02/2022 Assessment & Plan (10/16/2024 6:34 AM CDT): Patient will continue to have mammograms done at [facility] for now. Next mammogram of left breast scheduled to be done in December. Assessment & Plan (05/01/2023 1:19 PM LIVESTOCK BRANDS INSPECTOR): Continue use of prosthesis. Follows with Oncology. She has updated labs ordered by them to monitor. Vitamin D deficiency 10/02/2022 Assessment & Plan (05/01/2023 1:20 PM LIVESTOCK BRANDS INSPECTOR): Patient has open order to get updated vitamin-D level to monitor and adjust replacement as needed. She will let us know the results Osteopenia 10/02/2022 Assessment & Plan (05/01/2023 1:20 PM LIVESTOCK BRANDS INSPECTOR): Mild on prior bone density. Encouraged healthy diet and lifestyle as well as resistance training. Her oncologist is monitoring this Hypertension 07/02/2020 Assessment & Plan (06/12/2024 9:11 AM CDT): BP normal in office, continuing Lisinopril, Chlorthalidone, Coreg. Pt's renal function reviewed from 04/2024 (pt brought in results from [facility]). Stable. Assessment & Plan (05/01/2023 1:20 PM LIVESTOCK BRANDS INSPECTOR): Chronic. HTN controlled. Cont prescription Rx. Low sodium diet (DASH or Mediterranean), exercise, wt loss (if over weight) discussed Ventricular ectopy 03/19/2020 Overview (10/02/2022): 16% of all HBs holter 03/25 3.5% of all HBs holter 09/22 Nl LV fxn echo 03/25 Assessment & Plan (05/01/2023 1:20 PM LIVESTOCK BRANDS INSPECTOR): Chronic. Follows with Cardiology. Denies any recent symptoms Breast cancer 05/03/2010 Overview (10/02/2022): Right breast cancer - dx in 2010 with recurrence in 2019 Recurrent high-grade infiltrating ductal carcinoma ER positive HER-2/nighat negative status post resection of the right chest wall mass on October 18, 2019. PET scan done on October 10, 2019 showed no evidence of distant metastasis. Treated with mastectomy, chemo, XRT and now on aromasin. Use prostethetic bra Assessment & Plan (05/01/2023 1:20 PM LIVESTOCK BRANDS INSPECTOR): Chronic. Uses prosthetic raw. On aromatase inhibitor. Continue care per Oncology. Has labs ordered by her oncologist for monitoring Resolved Problems Problem Noted Date Diagnosed Date Resolved Date Right bundle branch block 03/19/2020 Encounters Date Type Department Care Team Description 10/30/2024 Results Follow-Up [address] [place] [address] Jeaneth Cormier, OPAL Pap, reflex HPV 10/29/2024 9:45 AM CDT Office Visit [facility] Sleep Medicine at [address] [place] [address] Triny Conley MD MELI (obstructive sleep apnea) (Primary Dx); Hypersomnia; Obesity, unspecified class, unspecified obesity type, unspecified whether serious comorbidity present 10/29/2024 Orders Only [facility] [address] [place] [address] [address] [place] [phone] Triny Conley MD Obesity, unspecified class, unspecified obesity type, unspecified whether serious comorbidity present (Primary Dx) 10/15/2024 9:15 AM CDT Office Visit [facility] [address] [place] [address] [address] [place] [phone] Jeaneth Cormier NP Well woman exam (Primary Dx); History of right mastectomy; Vaginal dryness, menopausal from Last 3 Months Surgical History Surgery Date Site/Laterality Comments WRIST SURGERY Right ORIF MASTECTOMY Right BREAST MASS EXCISION Right PORTACATH PLACEMENT and removal BREAST BIOPSY 09/30/2019 Right Medical History Medical History Date Comments Breast cancer (HCC) x2 in remiss ion Hypertension Vitamin D deficiency Ventricular ectopy Arthritis Sleep apnea Family History Medical History Relation Name Comments Hypertension Brother Anette Skaggs Esophageal cancer Father Anal Cancer Mother Mary Skaggs Anemia Mother Mary Skaggs Arthritis Mother Mary Skaggs Breast cancer Mother's Sister Hypertension Sister 1 Neida Roseanna Hypertension Sister 2 Rabia Herrera Relation Name Status Comments Brother Anette Skaggs Father Mother Mary Skaggs Mother's Sister Alive Sister 1 Neida Roseanna Sister 2 Rabia Herrera Social History Tobacco Use Types Packs/Day Years Used Date Smoking Tobacco: Never Smokeless Tobacco: Never Tobacco Cessation:Counseling Given: Not Answered Humiliation, Afraid, Rape, and Kick questionnair e Answer Date Recorded Within the last year, have y ou been afraid of your partner or ex-partner? No 04/05/2023 Within the last year, have y ou been humiliated or emotionally abused in other ways by your partner or ex-partner? No Within the last year, have y ou been kicked, hit, slapped, or otherwise physically hurt by your partner or ex-partner? No 04/05/2023 Within the last year, have y ou been raped or forced to have any kind of sexual activity by your partner or ex-partner? No 04/05/2023 AUDIT-C Answer Date Recorded Q1: How often do you have a drink containing alcohol? Never 04/05/2023 Q2: How many drinks containi ng alcohol do you have on a typical day when you are drinking? Patient does not drink Q3: How often do you have si x or more drinks on one occasion? Never 04/05/2023 PHQ-2 Answer Date Recorded PHQ-2 Total Score (If total score is 3 or more points, staff should administer the PHQ-9) 0 10/15/2024 Comments No Sex and Gender Information Value Date Recorded Sex Assigned at Not on file Legal Sex Female 8:20 PM LIVESTOCK BRANDS INSPECTOR Gender Identity Not on file Sexual Orientation Not on file Obstetrics History Para Term AB IAB SAB Ectopic Multiple Livin g Live Births 0 0 0 0 0 0 0 0 0 0 0 Last Filed Vital Signs Vital Sign Reading Time Taken Comments Blood Pressure 140/63 10/29/2024 9:30 AM CDT Pulse 62 10/29/2024 9:30 AM CDT Temperature 36.6 C (97.8 F) 06/12/2024 8:27 AM CDT Respiratory Rate 20 01/24/2024 10:15 AM LIVESTOCK BRANDS INSPECTOR Oxygen Saturation 98% 10/29/2024 9:30 AM CDT Inhaled Oxygen Concentration - - Weight 107 kg (236 lb) 10/29/2024 9:30 AM CDT Height 162.6 cm (5' 4) 10/29/2024 9:30 AM CDT Body Mass Index 40.51 10/29/2024 9:30 AM CDT Plan of Treatment Health Maintenance Due Date Last Done Comments Colon Cancer Screening-Colonoscopy 1955 Hepatitis C Screening 1955 DTaP/Tdap/Td Vaccine (1 - Tdap) 11/25/1967 Hepatitis B Screening 1974 Pneumococcal vaccine 65+ (1 of 2 - PCV) 11/25/1975 Zoster Vaccine (1 of 2) 11/25/1975 Covid-19 Vaccine ( - 2024-2 6 season) 2024 03/28/2023, 01/20/2022, 12/24/2020, Additional history exists Influenza Vaccine (#1) 2024 Breast Cancer Screening-Mammogram 12/30/2024 024, 12/28/2022 Fall Risk Assessment 06/12/2025 06/12/2024, 05/01/2023, 10/02/2022 Depression Screening 10/15/2025 10/15/2024, 06/12/2024, 05/01/2023, Additional history exists Well Visit 65+ 10/15/2025 10/15/2024, 04/06, 04/05/2023 Osteoporosis Screening-Bone Density Scan 03/04/2026 03/04/2024, 12/03/2021, 11/27/2019, Additional history exists Cervical Cancer Screening Discontinued 10/15/2024, 03/2023 Procedures Procedure Name Priority Date/Time Associated Diagnosis Comments PAP, REFLEX HPV Routine 10/15/2024 9:49 AM CDT Well woman exam HM MAMMOGRAPHY Routine 12/31/2023 3:03 PM CDT from Last 3 Months or Most Recently Relevant to Health Maintenance Results * Pap, reflex HPV (10/15/2024 9:49 AM CDT) Clinical indication Comment [facility] - 01 Comment: NEGATIVE FOR INTRAEPITHELIAL LESION OR MALIGNANCY. CELLULAR CHANGES ASSOCIATED WITH ATROPHY ARE PRESENT. Specimen adequacy: Comment [facility] - 01 Comment: Satisfactory for evaluation. Endocervical component may not be distinguished in cases of atrophy. Clinician provided ICD10 Comment [facility] - 01 Comment:Z01.419 Performed by Comment [facility] - 01 Comment:Pj Stein, Cytol ogist (ASCP) QC reviewed by Comment [facility] - 01 Comment:Mariel Cano, Cyto logist . . [facility] - 01 Note: Comment [facility] - 01 Comment: The Pap smear is a screening test designed to aid in the detection of premalignant and malignant conditions of the uterine cervix. It is not a diagnostic procedure and should not be used as the sole means of detecting cervical cancer. Both false-positive and false-negative reports do occur. Test methodology Comment [facility] - 01 Comment: This liquid based ThinPrep(R) pap test was screened with the use of an image guided system. . Comment [facility] - 01 Comment: The HPV DNA reflex criteria were not met with this specimen result therefore, no HPV testing was performed. Thin prep 10/15/2024 9:49 AM CDT 10/16/2024 Narrative [facility] - 10/20/2024 9:10 AM CDT Performed at: - [address] [place] [id number] Outside Dealer Sales Representative: Silvia Royal MD, Phone: [phone] Specimen Comment: [id number] Specimen Comment: No. of containers..01 ThinPrep Vial us Jeaneth Cormier NP LAB CYTOLOGY ORDERABLES Final Re sult [facility] - 01 * HM MAMMOGRAPHY (12/31/2023 3:03 PM CDT) us Historical Provider HEALTH MAINTENANCE Final Result from Last 3 Months or Most Recently Relevant to Health Maintenance Insurance [facility] MEDICARE ADVANTAGE Care Teams Inspection Manager Relationship Specialty Start Date End Date Padma Goodson NP [address] [facility] [address] [place] [address] PCP - General Family Medicine 06/12/24 Camacho Tao MD [address] [facility] [address] [place] [address] Referring Physician Cardiovascular Disease 10/02/22 Angel Duong MD [address] [place] [address] Referring Physician Hematology 10/02/22 Triny Conley MD [address] [facility] [address] [place] [address] Consulting Physician Sleep Medicine 05/01/23 Skin Care [facility] Aircraft Magneto Mechanic 06/12/24
--- OUTSIDE RECORDS SUMMARY | 2024-11-20 14:48 | XMS_ITS | Encounter Summary ---
Author Organization [facility] Address [address] [place] [address] Care Team Providers Care Fish Bait Picker Name Role Phone Jeaneth Ryan MD Primary Care Provider Encounter Details Date Type Department Care Team (Late st Contact Info) Description 01/04/2006 Outpatient Historical [facility] Aura Ngo MD [address] [facility] [address] [place], [place] [id number] Other Screening Mammogram (Primary Dx) Social History Tobacco Use Types Packs/Day Years Used Date Smoking Tobacco: Never Assessed Comments Unknown Sex and Gender Information Value Date Recorded Sex Assigned at Not on file Legal Sex Female 3:52 AM NICKER Gender Identity Not on file Sexual Orientation Not on file documented as of this encounter Plan of Treatment Upcoming Encounters Date Type Department Care Team (Late st Contact Info) Description 11/27/2024 1:15 PM CDT Office Visit [facility] Oncology and Hematology - [place] [address] [place] [address] [address] [place] [address] Angel Duong MD [address] [facility] [address] [place] [address] 03/19/2025 10:45 AM NICKER Office Visit [facility] Heart and Vascular At [facility] [address] [facility] [address] [place] [phone] Camacho Tao MD [facility] [address] [facility] [address] [place], [place] [id number] documented as of this encounter Visit Diagnoses Diagnosis Other screening mammogram- Primary documented in this encounter Care Teams Fish Bait Picker Relationship Specialty Start Date End Date Jeaneth Ryan MD PCP - General Family Practice 03/30/23 documented as of this encounter
--- OUTSIDE RECORDS SUMMARY | 2024-11-20 14:48 | XMS_ITS | Encounter Summary ---
Author Organization [facility] Address [address] [place] [address] Care Team Providers Care Improvement Leader Name Role Phone Jeaneth Ryan MD Primary Care Provider Encounter Details Date Type Department Care Team (Late Contact Info) Description 05/14/2000 Outpatient Historical [facility]3] Internal Medicine [place] [address] [place] [address] Camacho Mcdonald MD [address] [place] [address] Social History Tobacco Use Types Packs/Day Years Used Date Smoking Tobacco: Never Assessed Comments Unknown Sex and Gender Information Value Date Recorded Sex Assigned at Not on file Legal Sex Female 3:52 AM JACKET CHANGER Gender Identity Not on file Sexual Orientation Not on file documented as of this encounter Plan of Treatment Upcoming Encounters Date Type Department Care Team (Late Contact Info) Description 11/27/2024 1:15 PM CDT Office Visit [facility]3] Oncology and Hematology - [place] [address] [facility] [address] [place] [address] Angel Duong MD [address] [facility] [address] [place] [address] 03/19/2025 10:45 AM JACKET CHANGER Office Visit [facility]3] Heart and Vascular At [place] [address] [facility] [address] [place] [address] Camacho Tao MD [address] [facility] [address] [place] [address] documented as of this encounter Visit Diagnoses Not on filedocumented in this encounter Care Teams Improvement Leader Relationship Specialty Start Date End Date Jeaneth Ryan MD PCP - General Family Practice 03/30/23 documented as of this encounter
--- OUTSIDE RECORDS SUMMARY | 2024-11-20 14:48 | XMS_ITS | Encounter Summary ---
Author Organization [facility] Address [address] [place] [address] Care Team Providers Care Radar Engineer Name Role Phone Jeaneth Ryan MD Primary Care Provider Encounter Details Date Type Department Care Team (Late st Contact Info) Description 01/21/2008 Outpatient Historical [facility] M[facility]M [facility] Conversion, History Other Screening Mammogram Social History Tobacco Use Types Packs/Day Years Used Date Smoking Tobacco: Never Assessed Comments Unknown Sex and Gender Information Value Date Recorded Sex Assigned at Not on file Legal Sex Female 3:52 AM MULTIMEDIA ARTIST Gender Identity Not on file Sexual Orientation Not on file documented as of this encounter Plan of Treatment Upcoming Encounters Date Type Department Care Team (Late st Contact Info) Description 11/27/2024 1:15 PM CDT Office Visit [facility] Oncology and Hematology - Ryan [address] [place] [address] [address] [place] [address] [place] [address] [place] [address] [address] [place] [address] 03/19/2025 10:45 AM MULTIMEDIA ARTIST Office Visit [facility] Heart and Vascular At [facility] [address] [facility] [address] [place] [phone] Camacho Tao MD [facility] [address] [facility] [address] [place], [place] [phone] documented as of this encounter Procedures Procedure Name Priority Date/Time Associated Diagnosis Comments MAMMO SCREENING BILAT Routine 01/21/2008 2:38 PM MULTIMEDIA ARTIST documented in this encounter Results * MAMMO SCREENING BILAT (01/21/2008 2:38 PM MULTIMEDIA ARTIST) Anatomical Region Laterality Modality Breast Bilateral Other 01/21/2008 2:38 PM MULTIMEDIA ARTIST Narrative 01/22/2008 10:26 AM MULTIMEDIA ARTIST [address] [address] Admit Date: 01/21/2008 PALAK MARRERO Sex: F Admit Prov: DOCTOR, NOT O Date: 1955 Primary Care Prov: NAYE DODGE CMRN: [id number] [facility] [id number] IMAGING SERVICES Ordering Prov: DOCTOR, NOT O Accession Number: [id number] Interpretation BILATERAL SCREENING MAMMOGRAM 01/21/2008 Reason for this examination: Annual screening study. Findings: The parenchyma is moderately dense bilaterally. There is no mass, malignant calcification, lymphadenopathy or other sign of malignancy. No change since 01/2006. Summary: No mammographic evidence of malignancy. Overall assessment: BIRADS category 1 - Negative Assessment BIRADS: 1-Negative Recommendation: Normal interval follow-up Dictated by: POOL MEDEROS Electronically signed by: POOL MEDEROS 01/22/2008 10:25 Transcribed: 01/22/2008 09:42 AMK Procedure Note Pool Mederos MD - 01/22/[address] [place] [address] Admit Date: 01/21/2008 PALAK MARRERO Sex: F Admit Prov: DOCTOR, NOT O Date: 1955 Primary Care Prov: NAYE DODGE CMRN: [id number] Room: [facility] SSN: [id number] IMAGING SERVICES Ordering Prov: DOCTOR, NOT O Interpretation BILATERAL SCREENING MAMMOGRAM 01/21/2008 Reason for this examination: Annual screening study. Findings: The parenchyma is moderately dense bilaterally. There isno mass, malignant calcification, lymphadenopathy or other sign ofmalignancy. No change since 01/2006. Summary: No mammographic evidence of malignancy. Overall assessment: BIRADS category 1 - Negative Assessment BIRADS: 1-Negative Recommendation: Normal interval follow-up Dictated by: POOL MEDEROS Electronically signed by: POOL MEDEROS 01/22/2008 10:25 Transcribed: 01/22/2008 09:42 AMK us History Conversion MAMMO ORDERABLES Final Result documented in this encounter Visit Diagnoses Diagnosis Other screening mammogram documented in this encounter Care Teams Radar Engineer Relationship Specialty Start Date End Date Jeaneth Ryan MD PCP - General Family Practice 03/30/23 documented as of this encounter
--- OUTSIDE RECORDS SUMMARY | 2024-11-20 14:48 | XMS_ITS | Encounter Summary ---
Author Organization [facility] Address [address] [place] [address] Care Team Providers Care Preschool Lead Teacher Name Role Phone Camacho Tao MD Unavailable Angel Duong MD Unavailable [phone] Triny Conley MD Unavailable Padma Goodson NP Primary Care Provider [phone] Encounter Details Date Type Department Care Team (Late st Contact Info) Description 10/30/2024 Results Follow-Up [facility] [address] [place] [address] [address] [place] [address] Jeaneth Cormier NP [address] [place] [address] [address] [address] Pap, reflex HPV Social History Tobacco Use Types Packs/Day Years Used Date Smoking Tobacco: Never Smokeless Tobacco: Never Humiliation, Afraid, Rape, and Kick questionnair e [...] on file Legal Sex Female 8:20 PM TRACKMOBILE OPERATOR Gender Identity Not on file Sexual Orientation Not on file documented as of this encounter Plan of Treatment Not on file documented as of this encounter Visit Diagnoses Not on filedocumented in this encounter Care Teams Preschool Lead Teacher Relationship Specialty Start Date End Date Padma Goodson NP [address] [facility] [address] [place] [address] PCP - General Family Medicine 06/12/24 Camacho Tao MD [address] [facility] [address] [facility] [address] [place] [address] Referring Physician Cardiovascular Disease 10/02/22 Angel Duong MD [address] [place] [phone] Referring Physician Hematology 10/02/22 Triny Conley MD [address] [facility] [address] [place] [address] Consulting Physician Sleep Medicine 05/01/23 Skin Care [facility] Safe Deposit Clerk 06/12/24 documented as of this encounter
--- OUTSIDE RECORDS SUMMARY | 2024-11-20 14:48 | XMS_ITS | Encounter Summary ---
Author Organization [facility] Address [address] [place] [address] Care Team Providers Care Sales And Operations Trainee Name Role Phone Jeaneth Ryan MD Primary Care Provider Encounter Details Date Type Department Care Team (Late st Contact Info) Description 01/04/2007 Outpatient Historical HIS MAMM [facility]AN Conversion, History Other Screening Mammogram (Primary Dx) Social History Tobacco Use Types Packs/Day Years Used Date Smoking Tobacco: Never Assessed Comments Unknown Sex and Gender Information Value Date Recorded Sex Assigned at Not on file Legal Sex Female 3:52 AM CEILING INSTALLER Gender Identity Not on file Sexual Orientation Not on file documented as of this encounter Plan of Treatment Upcoming Encounters Date Type Department Care Team (Late st Contact Info) Description 11/27/2024 1:15 PM CDT Office Visit [facility] Oncology and Hematology - [place] [address] [place] [address] [address] [place] [address] Angel Duong MD [address] [facility] [address] [place] [address] 03/19/2025 10:45 AM CEILING INSTALLER Office Visit [facility] Heart and Vascular At [place] [address] [facility] [address] [place] [address] Camacho Tao MD [facility] [address] [facility] [address] [place] [address] documented as of this encounter Visit Diagnoses Diagnosis Other screening mammogram- Primary documented in this encounter Care Teams Sales And Operations Trainee Relationship Specialty Start Date End Date Jeaneth Ryan MD PCP - General Family Practice 03/30/23 documented as of this encounter
--- OUTSIDE RECORDS SUMMARY | 2024-11-20 14:48 | XMS_ITS | Encounter Summary ---
Author Organization [facility] Address [address] [place] [address] Care Team Providers Care Mold Polisher Name Role Phone Jeaneth Ryan MD Primary Care Provider Encounter Details Date Type Department Care Team (Late st Contact Info) Description 05/11/1998 Outpatient Historical [facility] Internal Medicine [place] [address] [place] [address] Shabbir Horta MD [address] [place] [phone] Social History Tobacco Use Types Packs/Day Years Used Date Smoking Tobacco: Never Assessed Comments Unknown Sex and Gender Information Value Date Recorded Sex Assigned at Not on file Legal Sex Female 3:52 AM PER DIEM NURSE Gender Identity Not on file Sexual Orientation Not on file documented as of this encounter Plan of Treatment Upcoming Encounters Date Type Department Care Team (Late st Contact Info) Description 11/27/2024 1:15 PM CDT Office Visit [facility] Oncology and Hematology - Ryan [address] [facility] [address] [place] [address] Angel Duong MD [address] [facility] [address] [place] [address] 03/19/2025 10:45 AM PER DIEM NURSE Office Visit [facility] Heart and Vascular At [place] [address] [facility] [address] [place] [address] Camacho Tao MD [address] [place] [address] [address] [place] [address] documented as of this encounter Visit Diagnoses Not on filedocumented in this encounter Care Teams Mold Polisher Relationship Specialty Start Date End Date Jeaneth Ryan MD PCP - General Family Practice 03/30/23 documented as of this encounter
--- OUTSIDE RECORDS SUMMARY | 2024-11-20 14:48 | XMS_ITS | Encounter Summary ---
Author Organization [facility] Address [address] [place] [address] Care Team Providers Care Tank Truck Driver Name Role Phone Jeaneth Ryan MD Primary Care Provider Encounter Details Date Type Department Care Team (Late st Contact Info) Description 11/06/2019 Chart Note [facility] Radiation Therapy [address] [place] [address] [place] [address] [place] [address] Social History Tobacco Use Types Packs/Day Years Used Date Smoking Tobacco: Never Smokeless Tobacco: Never Alcohol Use Standard Drinks/Week Comments Yes 0 (1 standard drink = 0.6 oz pur e alcohol) 1/6mo Comments No Sex and Gender Information Value Date Recorded Sex Assigned at Not on file Legal Sex Female 3:52 AM UMBRELLA TIPPER MACHINE Gender Identity Not on file Sexual Orientation Not on file Occupation Industry Job Start Date Job End Date Not on file Not on file Not on file Not on file COVID-19 Exposure Response Date Recorded In the last month, have you been in contact with someone who was confirmed or suspected to have Coronavirus / COVID-19? No / Unsure 11/04/2019 10:53 AM CDT documented as of this encounter Plan of Treatment Upcoming Encounters Date Type Department Care Team (Late st Contact Info) Description 11/27/2024 1:15 PM CDT Office Visit [facility] Oncology and Hematology - Ryan [address] [place] [address] Angel Duong MD [address] [facility] [address] [place] [address] 03/19/2025 10:45 AM UMBRELLA TIPPER MACHINE Office Visit [facility] Heart and Vascular At [facility] [address] [facility] [address] [place] [address] Camacho Tao MD [address] [facility] [address] [place] [address] documented as of this encounter Visit Diagnoses Not on filedocumented in this encounter Care Teams Tank Truck Driver Relationship Specialty Start Date End Date Jeaneth Ryan MD PCP - General Family Practice 03/30/23 documented as of this encounter
--- OUTSIDE RECORDS SUMMARY | 2024-11-20 14:48 | XMS_ITS | Encounter Summary ---
Author Organization [facility] Address [address] [place] [address] Care Team Providers Care Exploitation Analyst Name Role Phone Jeaneth Ryan MD Primary Care Provider Encounter Details Date Type Department Care Team (Late Contact Info) Description 03/26/1998 Outpatient Historical [facility] Internal Medicine [address] [address] [place] [address] Camacho Mcdonald MD [address] [place] [address] Social History Tobacco Use Types Packs/Day Years Used Date Smoking Tobacco: Never Assessed Comments Unknown Sex and Gender Information Value Date Recorded Sex Assigned at Not on file Legal Sex Female 3:52 AM PERSONNEL CLERK Gender Identity Not on file Sexual Orientation Not on file documented as of this encounter Plan of Treatment Upcoming Encounters Date Type Department Care Team (Late Contact Info) Description 11/27/2024 1:15 PM CDT Office Visit [facility] Oncology and Hematology - Ryan 2[address] [facility] [address] [place] [address] Angel Duong MD [address] [facility] [address] [place] [address] 03/19/2025 10:45 AM PERSONNEL CLERK Office Visit [facility] Heart and Vascular At [place] [address] [facility] [address] [place] [address] Camacho Tao MD [address] [facility] [address] [place] [address] documented as of this encounter Visit Diagnoses Not on filedocumented in this encounter Care Teams Exploitation Analyst Relationship Specialty Start Date End Date Jeaneth Ryan MD PCP - General Family Practice 03/30/23 documented as of this encounter
--- OUTSIDE RECORDS SUMMARY | 2024-11-20 14:48 | XMS_ITS | Encounter Summary ---
Author Organization [facility] Address [address] [place] [address] Care Team Providers Care Oncology Nurse Navigator Name Role Phone Jeaneth Ryan MD Primary Care Provider Encounter Details Date Type Department Care Team (Late st Contact Info) Description 12/31/2002 Outpatient Historical [facility] VAN Conversion, History SCREENING MAMM-MAILG NEOPL-OTHER (Primary Dx) Social History Tobacco Use Types Packs/Day Years Used Date Smoking Tobacco: Never Assessed Comments Unknown Sex and Gender Information Value Date Recorded Sex Assigned at Not on file Legal Sex Female 3:52 AM ADVERTISING SALES REPRESENTATIVE Gender Identity Not on file Sexual Orientation Not on file documented as of this encounter Plan of Treatment Upcoming Encounters Date Type Department Care Team (Late st Contact Info) Description 11/27/2024 1:15 PM CDT Office Visit [facility] Oncology and Hematology - Ryan 2227 [facility] [address] [place] [address] Angel Duong MD [address] [facility] [address] [place] [address] 03/19/2025 10:45 AM ADVERTISING SALES REPRESENTATIVE Office Visit [facility] Heart and Vascular At [place] [address] [facility] [address] [place] [address] Camacho Tao MD [facility] [address] [facility] [address] [place] [address] documented as of this encounter Visit Diagnoses Diagnosis Other screening mammogram- Primary documented in this encounter Care Teams Oncology Nurse Navigator Relationship Specialty Start Date End Date Jeaneth Ryan MD PCP - General Family Practice 03/30/23 documented as of this encounter
--- OUTSIDE RECORDS SUMMARY | 2024-11-20 14:48 | XMS_ITS | Encounter Summary ---
Author Organization [facility] Address [address] [place] [address] Care Team Providers Care Hogshead Cooper Name Role Phone Jeaneth Ryan MD Primary Care Provider Encounter Details Date Type Department Care Team (Late st Contact Info) Description 12/29/2003 Outpatient Historical [facility] Aura Doss MD [address] [facility] [address] [place] [address] SCREENING MAMM-MAILG NEOPL-OTHER (Primary Dx) Social History Tobacco Use Types Packs/Day Years Used Date Smoking Tobacco: Never Assessed Comments Unknown Sex and Gender Information Value Date Recorded Sex Assigned at Not on file Legal Sex Female 3:52 AM INTEGRATION ANALYST Gender Identity Not on file Sexual Orientation Not on file documented as of this encounter Plan of Treatment Upcoming Encounters Date Type Department Care Team (Late st Contact Info) Description 11/27/2024 1:15 PM CDT Office Visit [facility] Oncology and Hematology - [place] [address] [place] [address] [address] [place] [address] Angel Duong MD [address] [facility] [address] [place] [address] 03/19/2025 10:45 AM INTEGRATION ANALYST Office Visit [facility] Heart and Vascular At [place] [address] [facility] [address] [place] [address] Camacho Tao MD [facility] [address] [facility] [address] [place] [address] documented as of this encounter Visit Diagnoses Diagnosis Other screening mammogram- Primary documented in this encounter Care Teams Hogshead Cooper Relationship Specialty Start Date End Date Jeaneth Ryan MD PCP - General Family Practice 03/30/23 documented as of this encounter
--- OUTSIDE RECORDS SUMMARY | 2024-11-20 14:48 | XMS_ITS | Encounter Summary ---
Author Organization [facility] Address [address] [place] [address] Care Team Providers Care Nurse Private Duty Name Role Phone Jeaneth Ryan MD Primary Care Provider Encounter Details Date Type Department Care Team (Late st Contact Info) Description 01/04/2005 Outpatient Historical HIS MAMM Aura Doss MD [address] [facility] [address] [place] [address] SCREENING MAMM-MAILG NEOPL NEC (Primary Dx) Social History Tobacco Use Types Packs/Day Years Used Date Smoking Tobacco: Never Assessed Comments Unknown Sex and Gender Information Value Date Recorded Sex Assigned at Not on file Legal Sex Female 3:52 AM PIER HAND Gender Identity Not on file Sexual Orientation Not on file documented as of this encounter Plan of Treatment Upcoming Encounters Date Type Department Care Team (Late st Contact Info) Description 11/27/2024 1:15 PM CDT Office Visit [facility] Oncology and Hematology - Ryan 2[address] [facility] [address] [place] [address] Angel Duong MD [address] [facility] [address] [place] [address] 03/19/2025 10:45 AM PIER HAND Office Visit [facility] Heart and Vascular At [facility] [address] [facility] [address] [place] [address] Camacho Tao MD [facility] [address] [facility] [address] [place] [address] documented as of this encounter Visit Diagnoses Diagnosis Other screening mammogram- Primary documented in this encounter Care Teams Nurse Private Duty Relationship Specialty Start Date End Date Jeaneth Ryan MD PCP - General Family Practice 03/30/23 documented as of this encounter
--- OUTSIDE RECORDS SUMMARY | 2024-11-20 14:48 | XMS_ITS | Encounter Summary ---
Author Organization [facility] Address [address] [place] [address] Care Team Providers Care Bereavement Program Coordinator Name Role Phone Jeaneth Ryan MD Primary Care Provider Encounter Details Date Type Department Care Team (Late st Contact Info) Description 12/31/2001 Outpatient Historical [facility] M[facility] Aura Doss MD [address] [facility] [address] [place] [address] SCREENING MAMM-MAILG NEOPL-OTHER (Primary Dx) Social History Tobacco Use Types Packs/Day Years Used Date Smoking Tobacco: Never Assessed Comments Unknown Sex and Gender Information Value Date Recorded Sex Assigned at Not on file Legal Sex Female 3:52 AM TRANSPORT TECHNICIAN Gender Identity Not on file Sexual Orientation Not on file documented as of this encounter Plan of Treatment Upcoming Encounters Date Type Department Care Team (Late st Contact Info) Description 11/27/2024 1:15 PM CDT Office Visit [facility] Oncology and Hematology - [place] [address] [place] [address] [address] [place] [address] Angel Duong MD [address] [facility] [address] [place] [address] 03/19/2025 10:45 AM TRANSPORT TECHNICIAN Office Visit [facility] Heart and Vascular [place] [address] [facility] [address] [place] [address] Camacho Tao MD [facility] [address] [facility] [address] [place] [address] documented as of this encounter Visit Diagnoses Diagnosis Other screening mammogram- Primary documented in this encounter Care Teams Bereavement Program Coordinator Relationship Specialty Start Date End Date Jeaneth Ryan MD PCP - General Family Practice 03/30/23 documented as of this encounter
--- OUTSIDE RECORDS SUMMARY | 2024-11-20 14:48 | XMS_ITS | Encounter Summary ---
Author Organization [facility] Address [address] [place] [address] Care Team Providers Care Food Beverage Manager Name Role Phone Jeaneth Ryan MD Primary Care Provider Encounter Details Date Type Department Care Team (Late Contact Info) Description 03/16/1999 Outpatient Historical [facility] Internal Medicine [place] [address] [place] [address] Camacho Mcdonald MD [address] [place] [address] Social History Tobacco Use Types Packs/Day Years Used Date Smoking Tobacco: Never Assessed Comments Unknown Sex and Gender Information Value Date Recorded Sex Assigned at Not on file Legal Sex Female 3:52 AM DISTILLATION OPERATOR Gender Identity Not on file Sexual Orientation Not on file documented as of this encounter Plan of Treatment Upcoming Encounters Date Type Department Care Team (Late Contact Info) Description 11/27/2024 1:15 PM CDT Office Visit [facility] Oncology and Hematology - Ryan [address] [facility] 200 [place] [address] Angel Duong MD [address] [facility] [address] [place] [address] 03/19/2025 10:45 AM DISTILLATION OPERATOR Office Visit [facility] Heart and Vascular At [place] [address] [facility] [address] [place] [address] Camacho Tao MD [address] [facility] [address] [place] [address] documented as of this encounter Visit Diagnoses Not on filedocumented in this encounter Care Teams Food Beverage Manager Relationship Specialty Start Date End Date Jeaneth Ryan MD PCP - General Family Practice 03/30/23 documented as of this encounter
[2024-11-20 14:59] LABS: Hematocrit 37.3 % (37.0-47.0); Hemoglobin 12.7 g/dL (12.0-15.0); Immature Granulocyte Percent A 0.5 % (0-0.5); Lymphocytes Absolute Auto 2.19 K/mm3 (0.9-3.2); Mean Corpuscular HGB Conc 34.0 g/dl (32-36); Mean Corpuscular Hemoglobin 31.3 pg (26-34); Mean Corpuscular Volume 91.9 fl (80-100); Nucleated Red Blood Cells Absolute Auto 0.000 K/mm3 (0.0-0.012); Nucleated Red Blood Cells Perc 0.0 % (0.0-0.2); Platelet Count Result 260 k/mm3 (150-375); Red Blood Count 4.06 M/mm3 (4.2-5.4); White Blood Count 6.3 K/mm3 (4.5-10.0)
[2024-11-20 15:41] LABS: Alanine Aminotransferase 21 U/L (6-35); Albumin Level 4.0 g/dL (3.5-5.1); Alkaline Phosphatase 63 U/L (38-126); Anion Gap 5 mmol/L (4-12); Aspartate Amino Transferase 30 U/L (14-36); Bilirubin,Total 0.3 mg/dL (0.2-1.3); Blood Urea Nitrogen 24 mg/dL (7-17); Calcium 9.1 mg/dL (8.4-10.2); Carbon Dioxide 29 mmol/L (22-30); Chloride 103 mmol/L (98-107); Estimated Glomerular Filt Rate 59; Glucose 110 mg/dL (65-110); Potassium 3.5 mmol/L (3.4-5.0); Sodium 137 mmol/L (137-145); Total Protein 7.2 g/dL (6.3-8.2)
== END 2024-11-20 14:45 | disposition home or self-care (01) ==
LOC: ANHLAB 14:45
PROVIDERS: PCP Family Medicine Sports Medicine; Visit Provider Internal Medicine Hematology & Oncology
DX: C50.111 Malignant neoplasm of central portion of right female breast (principal)
CPT/HCPCS: 36415; 80053; 85025; 86300

== ENCOUNTER 2024-12-04 12:14 | Outpatient (CLI) | payer MEDICARE, SELFPAY ==
--- NOTE | ~2024-12-04 | PE_ITS ---
EXAMINATION: PET skull to mid thigh DATE: 12/04/2024 14:57 INDICATION: Right breast cancer TECHNIQUE: Blood glucose level was 96 mg/dL. 9.897 mCi of 18-fluorodeoxyglucose (18-FDG) was administered i.v. Low dose computed tomography (CT) images were acquired from the base of the brain to the proximal thighs for attenuation correction and anatomic localization. Positron emission tomography (PET) images were acquired in the same distribution beginning 104 minutes after injection. Images including fused PET/CT images were reconstructed in axial, coronal, and sagittal planes. Automated exposure control technique was employed. The dose- length product was 417.28mGy-cm. COMPARISON: None FINDINGS: Head/neck: There is symmetric increased activity in the oral cavity, palatine tonsils, laryngeal muscles and ocular muscles without CT correlate, likely physiologic. No pathologically enlarged cervical lymphadenopathy or suspicious foci of increased FDG uptake in the visualized head or neck. Chest: Postoperative change of prior right mastectomy. There is invagination of the skin with approximately 1.5 cm diameter region of soft tissue density extending between the skin surface at the invagination and the underlying chest wall with absence of intervening fat. There is increased FDG uptake with maximal SUV of 6.9 associated with the soft tissue density which raises concern for locally recurrent disease. There is a second smaller focus of increased FDG uptake with maximal SUV of 7.2 centered along the subcutaneous tissues at the lateral right supraclavicular region immediately underlying a bra strap which is without radiologic correlate on CT. This be highly unusual location for metastatic disea se and would favor an inflammatory etiology. Lungs are clear with no suspicious pulmonary nodules, pneumonia, pulmonary edema or other pulmonary infiltrates. No pleural effusion. Heart size is normal. No pericardial effusion. Thoracic aorta is normal in caliber. No pathologically enlarged or FDG avid thoracic lymphadenopathy. Mild likely physiologic uptake without radiologic correlate along the right-sided mid thoracic paraspinal musculature. Abdomen/pelvis/proximal thighs: Physiologic renal accumulation and excretion of FDG activity in the kidneys, bladder and along portions of ureters. Normal degree and heterogenous pattern of increased uptake throughout the liver without radiologic correlate or dominant FDG avid lesion. The gallbladder, pancreas, spleen and bilateral adrenal glands are normal. Mild uptake scattered throughout the bowels without radiologic correlate, also likely physiologic. Normal appendix. No other abnormal foci of increased FDG uptake or pathologically enlarged lymphadenopathy in the abdomen, pelvis or proximal thighs. Musculoskeletal: Moderate cervical and thoracic and severe lumbar spondylosis. No suspicious lytic, blastic or abnormally FDG avid bone lesions. IMPRESSION: 1. Small focus of moderate increased uptake such with a 1.5 cm region of soft tissue density extending between the skin surface and the underlying chest wall musculature along the deep margin of an invagination of the skin associated with a right mastectomy and which is concerning for locally recurrent disease. 2. Second small focus of moderate uptake in the subcutaneous tissues at the lateral right supraclavicular region immediately underlying an invagination of the skin surface associated with a bra strap which without radiologic correlate on CT which would be a highly unusual location for metastatic disease favoring an inflammatory etiology. Correlate with physical examination of the skin surface at this location. 2. No other FDG avid lesions suspicious for metastatic disease in the neck, chest, abdomen or pelvis. Reviewed, dictated and finalized at location A. IMPRESSION: 1. Small focus of moderate increased uptake such with a 1.5 cm region of soft t issue density extending between the skin surface and the underlying chest wall musculature along the deep margin of an invagination of the skin associated wit h a right mastectomy and which is concerning for locally recurrent disease. 2. Second small focus of moderate uptake in the subcutaneous tissues at the lat eral right supraclavicular region immediately underlying an invagination of the skin surface associated with a bra strap which without radiologic correlate on CT which would be a highly unusual location for metastatic disease favoring an inflammatory etiology. Correlate with physical examination of the skin surface at this location. 2. No other FDG avid lesions suspicious for metastatic disease in the neck, [address] st, abdomen or pelvis.
--- OUTSIDE RECORDS SUMMARY | 2024-12-04 12:18 | XMS_ITS | Clinical Summary ---
Author Organization [facility] [address] [place] Address [address] [place] [address] Care Team Providers Care Sandblaster Paint Sprayer Name Role Phone Camacho Tao MD Unavailable Angel Duong MD Unavailable [phone] Triny Conley MD Unavailable Padma Goodson NP Primary Care Provider [phone] Allergies No known active allergies Medications carvediloL [...] recommended. Assessment & Plan (05/01/2023 1:20 PM SERVICE COUNTER CASHIER): Chronic. Suboptimally controlled. Counseled on healthy diet continued exercise effort and weight loss MELI (obstructive sleep apnea) 03/12/2023 Assessment & Plan (06/12/2024 9:11 AM CDT): Pt states using cpap for 8 hours/night 7 nights/wk Pt states less daytime somnolence, feels better when using it. Would recommend the continued use of cpap Following with Dr Conley (sleep med) Assessment & Plan (05/01/2023 1:20 PM SERVICE COUNTER CASHIER): Recent diagnosis. Has been started on CPAP. She is working with sleep Medicine History of right mastectomy 10/02/2022 Assessment & Plan (10/16/2024 6:34 AM CDT): Patient will continue to have mammograms done at [facility] for now. Next mammogram of left breast scheduled to be done in December. Assessment & Plan (05/01/2023 1:19 PM SERVICE COUNTER CASHIER): Continue use of prosthesis. Follows with Oncology. She has updated labs ordered by them to monitor. Vitamin D deficiency 10/02/2022 Assessment & Plan (05/01/2023 1:20 PM SERVICE COUNTER CASHIER): Patient has open order to get updated vitamin-D level to monitor and adjust replacement as needed. She will let us know the results Osteopenia 10/02/2022 Assessment & Plan (05/01/2023 1:20 PM SERVICE COUNTER CASHIER): Mild on prior bone density. Encouraged healthy diet and lifestyle as well as resistance training. Her oncologist is monitoring this Hypertension 07/02/2020 Assessment & Plan (06/12/2024 9:11 AM CDT): BP normal in office, continuing Lisinopril, Chlorthalidone, Coreg. Pt's renal function reviewed from 04/2024 (pt brought in results from [facility]). Stable. Assessment & Plan (05/01/2023 1:20 PM SERVICE COUNTER CASHIER): Chronic. HTN controlled. Cont prescription Rx. Low sodium diet (DASH or Mediterranean), exercise, wt loss (if over weight) discussed Ventricular ectopy 03/19/2020 Overview (10/02/2022): 16% of all HBs holter 03/25 3.5% of all HBs holter 09/22 Nl LV fxn echo 03/25 Assessment & Plan (05/01/2023 1:20 PM SERVICE COUNTER CASHIER): Chronic. Follows with Cardiology. Denies any recent [...] bra Assessment & Plan (05/01/2023 1:20 PM SERVICE COUNTER CASHIER): Chronic. Uses prosthetic raw. On aromatase inhibitor. Continue care per Oncology. Has labs ordered by her oncologist for monitoring Resolved Problems Problem Noted Date Diagnosed Date Resolved Date Right bundle branch block 03/19/2020 Encounters Date Type Department Care Team Description 10/30/2024 Results Follow-Up [address] [place] [address] Jeaneth Cormier, OPAL Pap, reflex HPV 10/29/2024 9:45 AM CDT Office Visit [facility] Sleep Medicine at [address] [place] [address] Triny Conley MD MELI (obstructive sleep apnea) (Primary Dx); Hypersomnia; Obesity, unspecified class, unspecified obesity type, unspecified whether serious comorbidity present 10/29/2024 Orders Only [facility] [address] [place] [address] [address] [place] [address] Triny Conley MD Obesity, unspecified class, unspecified obesity type, unspecified whether serious comorbidity present (Primary Dx) 10/15/2024 9:15 AM CDT Office Visit [facility] [address] [place] [address] [address] [place] [address] Jeaneth Cormier NP Well woman exam (Primary [...] on file Legal Sex Female 8:20 PM SERVICE COUNTER CASHIER Gender Identity Not on file Sexual Orientation [...] CDT Respiratory Rate 20 01/24/2024 10:15 AM SERVICE COUNTER CASHIER Oxygen Saturation 98% 10/29/2024 9:30 AM CDT [...] 10/20/2024 9:10 AM CDT Performed at: - Lab[address] [place] [id number] Quality Compliance Manager: Silvia Royal MD, Phone: [phone] Specimen Comment: [id number] Specimen Comment: No. of containers..01 ThinPrep Vial us Jeaneth Cormier NP LAB CYTOLOGY ORDERABLES Final Re sult [facility] - 01 * HM MAMMOGRAPHY (12/31/2023 3:03 PM CDT) us Historical Provider HEALTH MAINTENANCE Final Result from Last 3 Months or Most Recently Relevant to Health Maintenance Insurance [facility] MEDICARE ADVANTAGE Care Teams Sandblaster Paint Sprayer Relationship Specialty Start Date End Date Padma Goodson NP [address] [facility] [address] [place] [address] PCP - General Family Medicine 06/12/24 Camacho Tao MD [address] [facility] [address] [address] [place] [address] Referring Physician Cardiovascular Disease 10/02/22 Angel Duong MD [address] [place] [address] Referring Physician Hematology 10/02/22 Triny Conley MD [address] [facility] [address] [place] [address] Consulting Physician Sleep Medicine 05/01/23 [facility] Managing Consultant 06/12/24
--- OUTSIDE RECORDS SUMMARY | 2024-12-04 12:18 | XMS_ITS | Encounter Summary ---
Author Organization [facility] Address [address] [place] [address] Care Team Providers Care Leaf Sucker Operator Name Role Phone Jeaneth Ryan MD Primary Care Provider Encounter Details Date Type Department Care Team (Late Contact Info) Description 05/14/[address] [facility] Internal Medicine [place] [address] [place] [address] Camacho Mcdonald MD [address] [place] [address] Social History Tobacco Use Types Packs/Day Years Used Date Smoking Tobacco: Never Assessed Comments Unknown Sex and Gender Information Value Date Recorded Sex Assigned at Not on file Legal Sex Female 3:52 AM YOLK SPRAY DRIER Gender Identity Not on file Sexual Orientation Not on file documented as of this encounter Plan of Treatment Upcoming Encounters Date Type Department Care Team (Late Contact Info) Description 12/11/2024 4:30 PM CDT Telephone Check Up [facility] Oncology and Hematology - Ryan [address] [facility] [address] [place] [address] Angel Duong MD [address] [facility] [address] [place] [address] 03/19/2025 10:45 AM YOLK SPRAY DRIER Office Visit [facility] Heart and Vascular At [place] [address] [facility] [address] [place] [address] Camacho Tao MD [address] [facility] [address] [facility] [address] [place] [address] 05/13/2025 10:15 AM CDT Office Visit [facility] Oncology and Hematology - [place] [address] [facility] [address] [place] [address] Angel Duong MD [address] [facility] [address] [place] [address] documented as of this encounter Visit Diagnoses Not on filedocumented in this encounter Care Teams Leaf Sucker Operator Relationship Specialty Start Date End Date Jeaneth Ryan MD PCP - General Family Practice 03/30/23 documented as of this encounter
--- OUTSIDE RECORDS SUMMARY | 2024-12-04 12:18 | XMS_ITS | Encounter Summary ---
Author Organization [facility] [facility] Address [address] [place] [address] Care Team Providers Care Explosive Ordnance Technician Name Role Phone Jeaneth Ryan MD Primary Care Provider Encounter Details Date Type Department Care Team ([facility] Contact Info) Description 12/02/2024 Orders Only [facility] Oncology and Hematology - [place] [address] [place] [address] Angel Duong MD [address] [place] [address] Social History Tobacco Use Types Packs/Day Years [...] on file Legal Sex Female 3:52 AM WOOD BORING MACHINE OPERATOR Gender Identity Not on file Sexual Orientation Not on file Occupation Industry Job Start Date Job End Date Not on file Not on file Not on file Not on file documented as of this encounter Plan of Treatment Upcoming Encounters Date Type Department Care Team (Late Contact Info) Description 12/11/2024 4:30 PM CDT Telephone Check Up [facility] Oncology and Hematology - [place] [address] [place] [address] Angel Duong MD [address] [facility] [address] [place] [address] 03/19/2025 10:45 AM WOOD BORING MACHINE OPERATOR Office Visit [facility] Heart and Vascular At [facility] [address] [place] [address] Camacho Tao MD [address] [facility] [address] [place] [address] 05/13/2025 10:15 AM CDT Office Visit [facility] Oncology and Hematology - [place] [address] [facility] [address] [place] [address] Angel Duong MD [address] [facility] [address] [place] [address] documented as of this encounter Procedures Procedure Name Priority Date/Time Associated Diagnosis Comments CHG CA 15 3 Routine 11/28/2024 10:18 AM CDT COMPREHENSIVE METABOLIC PANEL Routine 11/28/2024 9:39 AM CDT documented in this encounter Results * CHG CA 15 3 (11/28/2024 10:18 AM CDT) us Angel Duong MD CHG - LABORATORY Final Result * COMPREHENSIVE METABOLIC PANEL (11/28/2024 9:39 AM CDT) Blood us Angel Duong MD CHEMISTRY ORDERABLES Final Resu lt documented in this encounter Visit Diagnoses Not on filedocumented in this encounter Care Teams Explosive Ordnance Technician Relationship Specialty Start Date End Date Jeaneth Ryan MD PCP - General Family Practice 03/30/23 documented as of this encounter
--- OUTSIDE RECORDS SUMMARY | 2024-12-04 12:18 | XMS_ITS | Encounter Summary ---
Author Organization [facility] Address [address] [place] [address] Care Team Providers Care Cellophane Press Operator Name Role Phone Jeaneth Ryan MD Primary Care Provider Encounter Details Date Type Department Care Team (Late st Contact Info) Description 05/11/1998 Outpatient Historical [facility] Internal Medicine [id number] [place] [address] Shabbir Horta MD [address] [place] [phone] Social History Tobacco Use Types Packs/Day Years Used Date Smoking Tobacco: Never Assessed Comments Unknown Sex and Gender Information Value Date Recorded Sex Assigned at Not on file Legal Sex Female 3:52 AM MARKETING ANALYTICS SPECIALIST Gender Identity Not on file Sexual Orientation Not on file documented as of this encounter Plan of Treatment Upcoming Encounters Date Type Department Care Team (Late st Contact Info) Description 12/11/2024 4:30 PM CDT Telephone Check Up [facility] Oncology and Hematology - [place] [address] [facility] [address] [place] [address] Agnel Duong MD [address] [facility] [address] [place] [address] 03/19/2025 10:45 AM MARKETING ANALYTICS SPECIALIST Office Visit [facility] Heart and Vascular At [address] [place] [address] Camacho Tao MD [address] [place] [address] Rd [address] [place] [address] 05/13/2025 10:15 AM CDT Office Visit [facility] Oncology and Hematology - [place] [address] [facility] [address] [place] [address] Angel Duong MD [address] [facility] [address] [place] [address] documented as of this encounter Visit Diagnoses Not on filedocumented in this encounter Care Teams Cellophane Press Operator Relationship Specialty Start Date End Date Jeaneth Ryan MD PCP - General Family Practice 03/30/23 documented as of this encounter
--- OUTSIDE RECORDS SUMMARY | 2024-12-04 12:18 | XMS_ITS ---
Author Organization [facility] Address [address] [place] [address] Phone Care Team Providers Care Used Car Salesperson Name Role Phone Jeaneth Ryan MD Primary Care Provider Active Problems Patient Care Coordination No te Formatting of this note migh t be different from the original. Dr. Camacho Tao - Bottle House Quality Control Technician (HH) Problem Noted Date Diagnosed Date HLD [...]
--- OUTSIDE RECORDS SUMMARY | 2024-12-04 12:18 | XMS_ITS | Encounter Summary ---
Author Organization [facility] Address [address] [place] [address] Care Team Providers Care Director Of Diversity And Inclusion Name Role Phone Jeaneth Ryan MD Primary Care Provider Reason for Visit * Reason Onset Date Comments repeat lab results 12/03/2024 Encounter Details Date Type Department Care Team (Late st Contact Info) Description 12/03/2024 Telephone [facility] Oncology and Hematology - [place] [address] [facility] [address] [place] [address] Angel Duong MD [address] [facility] [address] [place] [address] repeat lab results Social History Tobacco Use Types Packs/Day Years [...] on file Legal Sex Female 3:52 AM CRIME SCENE EVIDENCE TECHNICIAN Gender Identity Not on file Sexual Orientation Not on file Occupation Industry Job Start Date Job End Date Not on file Not on file Not on file Not on file documented as of this encounter Miscellaneous Notes * Telephone Encounter - Glo Starkey - 12/03/2024 1:11 PM CDT LVM for patient regarding her PET scan recommendations. * Telephone Encounter - Glo Starkey - 12/03/2024 1:11 PM CDT ----- Message from Dr. Angel Duong sent at 12/03/2024 12:07 PM CDT ----- Regarding: RE: Lab Results I will proceed with the PET scan as the tumor marker remains elevated. ----- Message ----- From: Glo Starkey Sent: 12/03/2024 11:33 AM CDT To: Angel Duong MD Subject: Lab Results Patient had repeat labs done to make sure she really needed the Pet Scan. The pet scan is tomorrow.Please advise if based on the labs you would like her to still get the test done. documented in this encounter Plan of Treatment Upcoming Encounters Date Type Department Care Team (Late st Contact Info) Description 12/11/2024 4:30 PM CDT Telephone Check Up [facility] Oncology [facility] [address] [place] [address] Angel Duong MD [address] [place] [address] [address] [place] [phone] 03/19/2025 10:45 AM CRIME SCENE EVIDENCE TECHNICIAN Office Visit [facility] Heart and Vascular At [place] [address] [facility] [address] [place] [address] Camacho Tao MD [facility] [address] [facility] [address] [place] [address] 05/13/2025 10:15 AM CDT Office Visit [facility] Oncology [facility] [address] [place] [address] Angel Duong MD [address] [facility] [address] [place] [phone] documented as of this encounter Visit Diagnoses Not on filedocumented in this encounter Care Teams Director Of Diversity And Inclusion Relationship Specialty Start Date End Date Jeaneth Ryan MD PCP - General Family Practice 03/30/23 documented as of this encounter
--- OUTSIDE RECORDS SUMMARY | 2024-12-04 12:18 | XMS_ITS | Encounter Summary ---
Author Organization [facility] Address [address] [place] [address] Care Team Providers Care Smooth And Burr Worker Composites Name Role Phone Jeaneth Ryan MD Primary Care Provider Encounter Details Date Type Department Care Team (Late Contact Info) Description 11/06/2019 Chart Note [facility] Radiation Therapy [address] [place] [address] [place] [address] [place] [address] Social History Tobacco Use Types Packs/Day Years Used Date Smoking Tobacco: Never Smokeless Tobacco: Never Alcohol Use Standard Drinks/Week Comments Yes 0 (1 standard drink = 0.6 oz pur e alcohol) 1/6mo Comments No Sex and Gender Information Value Date Recorded Sex Assigned at Not on file Legal Sex Female 3:52 AM DISPLAY MECHANIC Gender Identity Not on file Sexual Orientation [...] 12/11/2024 4:30 PM CDT Telephone Check Up [facility] Oncology and Hematology - [place] [address] [place] [address] Angel Duong MD [address] [facility] [address] [place] [address] 03/19/2025 10:45 AM DISPLAY MECHANIC Office Visit [facility] Heart and Vascular At [facility] [address] [place] [address] Camacho Tao MD [address] [facility] [address] [place] [address] 05/13/2025 10:15 AM CDT Office Visit [facility] Oncology and Hematology - [place] [address] [facility] [address] [place] [address] Angel Duong MD [address] [facility] [address] [place] [address] documented as of this encounter Visit Diagnoses Not on filedocumented in this encounter Care Teams Smooth And Burr Worker Composites Relationship Specialty Start Date End Date Jeaneth Ryan MD PCP - General Family Practice 03/30/23 documented as of this encounter
--- OUTSIDE RECORDS SUMMARY | 2024-12-04 12:18 | XMS_ITS | Encounter Summary ---
Author Organization [facility] Address [address] [place] [address] Care Team Providers Care Route Sales Person Name Role Phone Jeaneth Ryan MD Primary Care Provider Encounter Details Date Type Department Care Team (Late st Contact Info) Description 01/04/2006 Outpatient Historical [facility] Aura Ngo MD [address] [facility] [address] [place], [place] [id number] Other Screening Mammogram (Primary Dx) Social History Tobacco Use Types Packs/Day Years Used Date Smoking Tobacco: Never Assessed Comments Unknown Sex and Gender Information Value Date Recorded Sex Assigned at Not on file Legal Sex Female 3:52 AM SWITCHBOARD INSPECTOR Gender Identity Not on file Sexual Orientation Not on file documented as of this encounter Plan of Treatment Upcoming Encounters Date Type Department Care Team (Late st Contact Info) Description 12/11/2024 4:30 PM CDT Telephone Check Up [facility] Oncology and Hematology - [place] [address] [place] [address] [address] [place] [address] Angel Duong MD [address] [facility] [address] [place] [address] 03/19/2025 10:45 AM SWITCHBOARD INSPECTOR Office Visit [facility] Heart and Vascular At [place] [address] [facility] [address] [place] [address] Camacho Tao MD [facility] [address] [facility] [address] [place] [address] 05/13/2025 10:15 AM CDT Office Visit [facility] Oncology and Hematology - [place] [address] [facility] [address] [place] [address] Angel Duong MD [address] [facility] [address] [place] [address] documented as of this encounter Visit Diagnoses Diagnosis Other screening mammogram- Primary documented in this encounter Care Teams Route Sales Person Relationship Specialty Start Date End Date Jeaneth Ryan MD PCP - General Family Practice 03/30/23 documented as of this encounter
--- OUTSIDE RECORDS SUMMARY | 2024-12-04 12:18 | XMS_ITS | Encounter Summary ---
Author Organization [facility] Address [address] [place] [address] Care Team Providers Care Polarity Tester Name Role Phone Jeaneth Ryan MD Primary Care Provider Encounter Details Date Type Department Care Team (Late st Contact Info) Description 12/29/2003 Outpatient Historical [facility] Aura Doss MD [address] [facility] [address] [place] [address] SCREENING MAMM-MAILG NEOPL-OTHER (Primary Dx) Social History Tobacco Use Types Packs/Day Years Used Date Smoking Tobacco: Never Assessed Comments Unknown Sex and Gender Information Value Date Recorded Sex Assigned at Not on file Legal Sex Female 3:52 AM PEARLER Gender Identity Not on file Sexual Orientation Not on file documented as of this encounter Plan of Treatment Upcoming Encounters Date Type Department Care Team (Late Contact Info) Description 12/11/2024 4:30 PM CDT Telephone Check Up [facility] Oncology and Hematology - [place] 2227 [facility] 200 [place] [address] Angel Duong MD [address] [facility] [address] [place] [address] 03/19/2025 10:45 AM PEARLER Office Visit [facility] Heart and Vascular At [facility] [address] [facility] [address] [place] [address] Camacho Tao MD [facility] S [facility] [address] [place] [address] 05/13/2025 10:15 AM CDT Office Visit [facility] Oncology and Hematology - [place] [address] [facility] [address] [place] [address] Angel Duong MD [address] [facility] [address] [place] [address] documented as of this encounter Visit Diagnoses Diagnosis Other screening mammogram- Primary documented in this encounter Care Teams Polarity Tester Relationship Specialty Start Date End Date Jeaneth Ryan MD PCP - General Family Practice 03/30/23 documented as of this encounter
--- OUTSIDE RECORDS SUMMARY | 2024-12-04 12:18 | XMS_ITS | Encounter Summary ---
Author Organization [facility] Address [address] [place] [address] Care Team Providers Care Lens Cementer Name Role Phone Camacho Tao MD Unavailable Angel Duong MD Unavailable [phone] Triny Conley MD Unavailable Padma Goodson NP Primary Care Provider [phone] Encounter Details Date Type Department Care Team (Late st Contact Info) Description 10/30/2024 Results Follow-Up [facility] [address] [place] [address] [address] [place] [address] Jeaneth Cormier NP [address] [place] [address] [address] [address] Pap, reflex HPV Social History [...] on file Legal Sex Female 8:20 PM HAND LEATHER TRIMMER Gender Identity Not on file Sexual Orientation Not on file documented as of this encounter Plan of Treatment Not on file documented as of this encounter Visit Diagnoses Not on filedocumented in this encounter Care Teams Lens Cementer Relationship Specialty Start Date End Date Padma Goodson NP [address] [facility] [address] [place] [address] PCP - General Family Medicine 06/12/24 Camacho Tao MD [address] [facility] [address] [facility] [address] [place] [address] Referring Physician Cardiovascular Disease 10/02/22 Angel Duong MD [address] [place] [address] Referring Physician Hematology 10/02/22 Triny Conley MD [address] [facility] [address] [place] [address] Consulting Physician Sleep Medicine 05/01/23 [facility] Pipeline Controller 06/12/24 documented as of this encounter
--- OUTSIDE RECORDS SUMMARY | 2024-12-04 12:18 | XMS_ITS | Encounter Summary ---
Author Organization [facility] Address [address] [place] [address] Care Team Providers Care Cloth Dyeing Range Tender Name Role Phone Jeaneth Ryan MD Primary Care Provider Encounter Details Date Type Department Care Team (Late st Contact Info) Description 01/04/2005 Outpatient Historical HIS MAMM Aura Doss MD [address] [facility] [address] [place] [address] SCREENING MAMM-MAILG NEOPL NEC (Primary Dx) Social History Tobacco Use Types Packs/Day Years Used Date Smoking Tobacco: Never Assessed Comments Unknown Sex and Gender Information Value Date Recorded Sex Assigned at Not on file Legal Sex Female 3:52 AM METAL RECLAMATION KETTLE TENDER Gender Identity Not on file Sexual Orientation Not on file documented as of this encounter Plan of Treatment Upcoming Encounters Date Type Department Care Team (Late st Contact Info) Description 12/11/2024 4:30 PM CDT Telephone Check Up [facility] Oncology and Hematology - [place] [address] [facility] [address] [place] [address] Angel Duong MD [address] [facility] [address] [place] [address] 03/19/2025 10:45 AM METAL RECLAMATION KETTLE TENDER Office Visit [facility] Heart and Vascular At [place] [address] [facility] [address] [place] [address] Camacho Tao MD [facility] [address] [facility] [address] [place] [address] 05/13/2025 10:15 AM CDT Office Visit [facility] Oncology and Hematology - [place] [address] [facility] [address] [place] [address] Angel Duong MD [address] [facility] [address] [place] [address] documented as of this encounter Visit Diagnoses Diagnosis Other screening mammogram- Primary documented in this encounter Care Teams Cloth Dyeing Range Tender Relationship Specialty Start Date End Date Jeaneth Ryan MD PCP - General Family Practice 03/30/23 documented as of this encounter
--- OUTSIDE RECORDS SUMMARY | 2024-12-04 12:18 | XMS_ITS | Encounter Summary ---
Author Organization [facility] Address [address] [place] [address] Care Team Providers Care Repairer Controller Tester Name Role Phone Jeaneth Ryan MD Primary Care Provider Encounter Details Date Type Department Care Team (Late st Contact Info) Description 12/31/2001 Outpatient Historical HIS MAMM Aura Doss MD [address] [facility] [address] [place] [address] SCREENING MAMM-MAILG NEOPL-OTHER (Primary Dx) Social History Tobacco Use Types Packs/Day Years Used Date Smoking Tobacco: Never Assessed Comments Unknown Sex and Gender Information Value Date Recorded Sex Assigned at Not on file Legal Sex Female 3:52 AM CPA TAX Gender Identity Not on file Sexual Orientation Not on file documented as of this encounter Plan of Treatment Upcoming Encounters Date Type Department Care Team (Late Contact Info) Description 12/11/2024 4:30 PM CDT Telephone Check Up [facility] Oncology and Hematology - [place] [address] [facility] [address] [place] [address] Angel Duong MD [address] [facility] [address] [place] [address] 03/19/2025 10:45 AM CPA TAX Office Visit [facility] Heart and Vascular At [facility] [address] [place] [facility] [address] [place] [address] Camacho Tao MD [facility] [address] [facility] [address] [place] [address] 05/13/2025 10:15 AM CDT Office Visit [facility] Oncology and Hematology - [place] [address] [facility] [address] [place] [address] Angel Duong MD [address] [facility] [address] [place] [address] documented as of this encounter Visit Diagnoses Diagnosis Other screening mammogram- Primary documented in this encounter Care Teams Repairer Controller Tester Relationship Specialty Start Date End Date Jeaneth Ryan MD PCP - General Family Practice 03/30/23 documented as of this encounter
--- OUTSIDE RECORDS SUMMARY | 2024-12-04 12:18 | XMS_ITS | Encounter Summary ---
Author Organization [facility] Address [address] [place] [address] Care Team Providers Care Mri Supervisor Name Role Phone Jeaneth Ryan MD Primary Care Provider Encounter Details Date Type Department Care Team (Late Contact Info) Description 03/16/1999 Outpatient Historical [facility] Internal Medicine [address] [place] [address] Camacho Mcdonald MD [address] [place] [address] Social History Tobacco Use Types Packs/Day Years Used Date Smoking Tobacco: Never Assessed Comments Unknown Sex and Gender Information Value Date Recorded Sex Assigned at Not on file Legal Sex Female 3:52 AM ENGINE LATHE SET UP OPERATOR Gender Identity Not on file Sexual Orientation Not on file documented as of this encounter Plan of Treatment Upcoming Encounters Date Type Department Care Team (Late Contact Info) Description 12/11/2024 4:30 PM CDT Telephone Check Up [facility] Oncology and Hematology - [place] [address] [facility] [address] [place] [address] Angel Duong MD [address] [facility] [address] [place] [address] 03/19/2025 10:45 AM ENGINE LATHE SET UP OPERATOR Office Visit [facility] Heart and Vascular At [place] [address] [facility] [address] [place] [address] Camacho Tao MD [address] [facility] [address] [place] [address] 05/13/2025 10:15 AM CDT Office Visit [facility] Oncology and Hematology - [place] [address] [facility] [address] [place] [address] Angel Duong MD [address] [facility] [address] [place] [address] documented as of this encounter Visit Diagnoses Not on filedocumented in this encounter Care Teams Mri Supervisor Relationship Specialty Start Date End Date Jeaneth Ryan MD PCP - General Family Practice 03/30/23 documented as of this encounter
--- OUTSIDE RECORDS SUMMARY | 2024-12-04 12:18 | XMS_ITS | Clinical Summary ---
Author Organization [facility] Address [address] [place] [address] Phone Care Team Providers Care Clay Processing Labourer Name Role Phone Jeaneth Barr MD Primary Care Provider Allergies No known active allergies Medications Blood Pressure Monitor Kit 1 Each by Other route daily. 12/28/2022 Active cholecalciferol, Vitamin D3, (VITAMIN D3) 25 mcg (1,000 unit) Capsule Take by mouth daily. Every other day Active lisinopriL (PRINIVIL) 10 mg tablet TAKE 1 TABLET (10 MG) BY MOUTH DAILY. 90 Tablet 2 03/26/2024 Active chlorthalidone (HYGROTON) 25 mg tablet TAKE 1 TABLET BY MOUTH EVERY DAY 90 Tablet 3 04/28/2024 Active carvediloL (COREG) 6.25 mg tablet TAKE 1 TABLET BY MOUTH TWICE A DAY WITH FOOD 180 Tablet 3 10/20/2024 Active exemestane (AROMASIN) 25 mg tabletIndication s:Malignant neoplasm of central portion of right breast (CMS/HCC) TAKE 1 TABLET (25 MG) BY MOUTH DAILY AFTER BREAKFAST. 90 Tablet 3 11/04/2024 Active Active Problems Patient Care Coordination No te Formatting of this note migh t be different from the original. Dr. Camacho Tao - Supreme Court Judge (HH) Problem Noted Date Diagnosed Date HLD [...] Encounters Date Type Department Care Team Description 12/03/2024 Telephone [facility] Oncology and Hematology [facility] [address] [place] [phone] Angel Duong MD repeat lab results 12/02/2024 Orders Only [facility] Oncology [facility] Hematology [facility] [address] [place] [address] Angel Duong MD 11/27/2024 1:15 PM CDT Office Visit [facility] Oncology and Hematology [facility] [address] [place] [address] Angel Duong MD Malignant neoplasm of central portion of right breast (CMS/HCC) (Primary Dx) 2024 Orders Only [facility] Oncology and Hematology [facility] [address] [place] [address] Angel Duong MD 11/18/2024 External Device Data STL ABSTRACTION Provider, Abstract 11/04/2024 External Device Data STL ABSTRACTION Provider, Abstract 11/02/2024 Refill [facility] Oncology and Hematology [facility] [address] [place] [address] Angel Duong MD Malignant neoplasm of central portion of right breast (CMS/HCC) 10/18/2024 Refill [facility] Heart and Vascular At [address] [place] [phone] Camacho Tao MD 10/14/2024 External Device Data STL ABSTRACTION Provider, Abstract 09/25/2024 10:45 AM CDT Office Visit [facility] Heart and Vascular At [facility] [address] [place] [address] Camacho Tao MD Ventricular ectopy (Primary Dx); [...] on file Legal Sex Female 3:52 AM AGRICULTURAL PURCHASING AGENT Gender Identity Not on file Sexual Orientation Not on file Occupation Industry Job Start Date Job End Date Not on file Not on file Not on file Not on file Last Filed Vital Signs Vital Sign Reading Time Taken Comments Blood Pressure 134/72 11/27/2024 1:21 PM CDT Pulse 67 11/27/2024 1:18 PM CDT Temperature 36.3 C (97.3 F) 11/27/2024 1:18 PM CDT Respiratory Rate 15 11/27/2024 1:18 PM CDT Oxygen Saturation 96% 11/27/2024 1:18 PM CDT Inhaled Oxygen Concentration - - Weight 105.7 kg (233 lb) 11/27/2024 1:18 PM CDT Height 165.1 cm (5' 5) 09/25/2024 10:35 AM CDT Body Mass Index 38.77 09/25/2024 10:35 AM CDT Plan of Treatment Upcoming Encounters Date Type Department Care Team (Late st Contact Info) Description 12/11/2024 4:30 PM CDT Telephone Check Up [facility] Oncology and Hematology [place] [address] [place], [place] [address] [place] [address] Angel Duong MD [address] [facility] [employer] [address] [place] [address] 03/19/2025 10:45 AM AGRICULTURAL PURCHASING AGENT Office Visit [facility] Heart and Vascular At [facility] [address] [place] [address] Camacho Tao MD [address] [facility] [address] [place] [address] 05/13/2025 10:15 AM CDT Office Visit [facility] Oncology and Hematology [facility] [address] [place] [address] [address] [place] [address] Angel Duong MD [address] [facility] [employer] [address] [place] [address] Health Maintenance Due Date Last Done Comments Pre-Diabetes and Diabetes Screening 1955 DTAP/TDAP/TD VACCINES (1 - Tdap) 11/25/1975 FIT-DNA Q 3 years 2001 FIT/FOBT Q 1 year 2001 Flex Sig/CT Colonography Q 5 years 2001 PNEUMOCOCCAL VACCINE 50+ YEA RS (1 of 1 - PCV) 2006 ZOSTER VACCINE (1 of 2) 2006 INFLUENZA VACCINE (#1) 2024 BREAST CANCER SCREENING 12/30/2024 12/31/19 24, 12/23/2020, 11/27/2019, Additional history exists COLORECTAL SCREENING 06/25/2028 06/26/2023, 06/26/19 Colorectal Cancer Screening 06/25/2028 OSTEOPOROSIS SCREENING 03/04/2029 , 11/27/2019, 10/25/2016, Additional history exists RSV VACCINE (60+ or ) (1 - 1-dose 75+ series) 11/25/2031 Medicare [place] ([place]) Preventative Visit/Annual Wellness Visit Completed 10/15/2024, 04/05/2023 Medical Devices Implanted Type Area Gas Appliance Adjuster Device Identifier Shelf Expiration Date Model / Serial / Lot Log [id number] - Vascular Access Ports - 1 - Port Pwrprt Mri 8fr [id number] Implanted:Qty: 1 on 05/03/[address] [facility] Port Left: Chest Wall CR BARD- ACCESS SYS 10/04/2011 [id number] / [id number] / [id number] Procedures Procedure Name Priority Date/Time Associated Diagnosis Comments CHG CA 15 3 Routine 11/28/2024 10:18 AM CDT COMPREHENSIVE METABOLIC PANEL Routine 11/28/2024 9:39 AM CDT CHG CA 15 3 Routine 11/20/2024 2:47 PM CDT COMPREHENSIVE METABOLIC PANEL Routine 11/20/2024 12:06 PM CDT CBC WITH AUTODIFFERENTIAL Routine 11/20/2024 11:49 AM CDT XR DEXA BONE DENSITY W VERTEBRAL FX Routine 03/04/2024 12:14 PM AGRICULTURAL PURCHASING AGENT MAMMO SCREENING UNILATERAL LEFT Routine 12/31/2023 2:36 PM CDT COLONOSCOPY REPORT 06/26/2023 9: 23 AM CDT from Last 3 Months or Most Recently Relevant to Health Maintenance Results * CHG CA 15 3 (11/28/2024 10:18 AM CDT) Only the most recent of2 resultswithin the time period is included. us Angel Duong MD [facility]G - LABORATORY Final Result * COMPREHENSIVE METABOLIC PANEL (11/28/2024 9:39 AM CDT) Only the most recent of2 resultswithin the time period is included. Blood us Angel Duong MD CHEMISTRY ORDERABLES Final Resu lt * CBC WITH AUTODIFFERENTIAL (11/20/2024 11:49 AM CDT) Blood us Angel Duong MD HEMATOLOGY ORDERABLES Final Res ult * XR DEXA BONE DENSITY W VERTEBRAL FX (03/04/2024 12:14 PM AGRICULTURAL PURCHASING AGENT) Anatomical Region Laterality Modality Spine Other Angel Duong MD DIAGNOSTIC IMAGING ORDERABLES F inal Result * MAMMO SCREENING UNILATERAL LEFT (12/31/2023 2:36 PM CDT) Anatomical Region Laterality Modality Breast Left Mammography Angel Duong MD MAMMO ORDERABLES Final Result * COLONOSCOPY REPORT (06/26/2023 9:23 AM CDT) Narrative Procedure Note Claudia Hinkle MD - 06/26/2023 9:23 AM CDT [facility] Endoscopy Patient Name: Palak Marrero Procedure Date: [...] electronically. Number of Addenda: [address]; [place] [address] Claudia Hinkle MD GI PROCEDURE ORDERABLES Final Result from Last 3 Months or Most Recently Relevant to Health Maintenance Insurance RX [facility] [employer] [facility] [address] [place] [address] [facility] [id number] Advance Directives For more information, please contact: [phone] * Full Code (Latest Code Status on [...] 1:17 PM 05/10/2010 5:45 PM Care Teams Clay Processing Labourer Relationship Specialty Start Date End Date Jeaneth Barr MD PCP - General Family Practice 03/30/23
--- OUTSIDE RECORDS SUMMARY | 2024-12-04 12:18 | XMS_ITS | Encounter Summary ---
Author Organization [facility] Address [address] [place] [address] Care Team Providers Care Straddle Buggy Operator Name Role Phone Jeaneth Ryan MD [...] on file Legal Sex Female 3:52 AM MANAGER OUTPATIENT Gender Identity Not on file Sexual Orientation Not on file documented as of this encounter Plan of Treatment Upcoming Encounters Date Type Department Care Team (Late st Contact Info) Description 12/11/2024 4:30 PM CDT Telephone Check Up [facility] Oncology and Hematology - [place] [address] [facility] [address] [place] [address] Angel Duong MD [address] [facility] [address] [place] [address] 03/19/2025 10:45 AM MANAGER OUTPATIENT Office Visit [facility] Heart and Vascular At [place] [address] [place] [phone] Camacho Tao MD [facility] [address] [facility] [address] [place] [address] 05/13/2025 10:15 AM CDT Office Visit [facility] Oncology and Hematology - [place] [address] [facility] [address] [place] [address] Angel Duong MD [address] [facility] [address] [place] [address] documented as of this encounter Visit Diagnoses Diagnosis Other screening mammogram- Primary documented in this encounter Care Teams Straddle Buggy Operator Relationship Specialty Start Date End Date Jeaneth Ryan MD PCP - General Family Practice 03/30/23 documented as of this encounter
--- OUTSIDE RECORDS SUMMARY | 2024-12-04 12:18 | XMS_ITS | Encounter Summary ---
Author Organization [facility] Address [address] [place] [address] Care Team Providers Care Local Area Network Systems Adminstrator Name Role Phone Jeaneth Ryan MD Primary Care Provider Encounter Details Date Type Department Care Team (Late Contact Info) Description 03/26/1998 Outpatient Historical [facility] Internal Medicine [place] [address] [place] [address] Camacho Mcdonald MD [address] [place] [address] Social History Tobacco Use Types Packs/Day Years Used Date Smoking Tobacco: Never Assessed Comments Unknown Sex and Gender Information Value Date Recorded Sex Assigned at Not on file Legal Sex Female 3:52 AM WASH TANK TENDER Gender Identity Not on file Sexual Orientation Not on file documented as of this encounter Plan of Treatment Upcoming Encounters Date Type Department Care Team (Late Contact Info) Description 12/11/2024 4:30 PM CDT Telephone Check Up [facility] Oncology and Hematology - [place] [address] [facility] [address] [place] [address] Angel Duong MD [address] [facility] [address] [place] [address] 03/19/2025 10:45 AM WASH TANK TENDER Office Visit [facility] Heart and Vascular At [place] [address] [facility] [address] [place] [address] Camacho Tao MD [address] [place] [address] 05/13/2025 10:15 AM CDT Office Visit [facility] Oncology and Hematology - [place] [address] [facility] [address] [place] [address] Angel Duong MD [address] [facility] [address] [place] [address] documented as of this encounter Visit Diagnoses Not on filedocumented in this encounter Care Teams Local Area Network Systems Adminstrator Relationship Specialty Start Date End Date Jeaneth Ryan MD PCP - General Family Practice 03/30/23 documented as of this encounter
--- OUTSIDE RECORDS SUMMARY | 2024-12-04 12:18 | XMS_ITS | Encounter Summary ---
Author Organization [facility] Address [address] [place] [address] Care Team Providers Care Grocery Clerk Selling Name Role Phone Jeaneth Ryan MD Primary [...] on file Legal Sex Female 3:52 AM RN MOBILE Gender Identity Not on file Sexual Orientation Not on file documented as of this encounter Plan of Treatment Upcoming Encounters Date Type Department Care Team (Late st Contact Info) Description 12/11/2024 4:30 PM CDT Telephone Check Up [facility] Oncology and Hematology - [place] [address] [place] [address] [address] [place] [address] Angel Duong MD [address] [facility] [address] [place] [address] 03/19/2025 10:45 AM RN MOBILE Office Visit [facility] Heart and Vascular At [facility] [address] [facility] [address] [place] [address] Camacho Tao MD [facility] [address] [facility] [address] [place] [address] 05/13/2025 10:15 AM CDT Office Visit [facility] Oncology and Hematology - [place] [address] [facility] [address] [place] [address] Angel Duong MD [address] [facility] [address] [place] [address] documented as of this encounter Visit Diagnoses Diagnosis Other screening mammogram- Primary documented in this encounter Care Teams Grocery Clerk Selling Relationship Specialty Start Date End Date Jeaneth Ryan MD PCP - General Family Practice 03/30/23 documented as of this encounter
--- OUTSIDE RECORDS SUMMARY | 2024-12-04 12:18 | XMS_ITS | Encounter Summary ---
Author Organization [facility] Address [address] [place] [address] Care Team Providers Care Unhairer Name Role Phone Jeaneth Ryan MD Primary [...] on file Legal Sex Female 3:52 AM PIECE WORK INSPECTOR Gender Identity Not on file Sexual Orientation Not on file documented as of this encounter Plan of Treatment Upcoming Encounters Date Type Department Care Team (Late st Contact Info) Description 12/11/2024 4:30 PM CDT Telephone Check Up [facility] Oncology and Hematology - [address] [place] [phone] [place] [address] [place] [address] [place] [phone] 03/19/2025 10:45 AM PIECE WORK INSPECTOR Office Visit [facility] Heart and Vascular At [facility] [address] [facility] [address] [place] [address] [facility] [address] [facility] [address] [place] [address] 05/13/2025 10:15 AM CDT Office Visit [facility] Oncology and Hematology - [address] [place] [address] Angel Duong MD [address] [facility] [address] [place] [address] documented as of this encounter Procedures Procedure Name Priority Date/Time Associated Diagnosis Comments MAMMO SCREENING BILAT Routine 01/21/2008 2:38 PM PIECE WORK INSPECTOR documented in this encounter Results * MAMMO SCREENING BILAT (01/21/2008 2:38 PM PIECE WORK INSPECTOR) Anatomical Region Laterality Modality Breast Bilateral Other 01/21/2008 2:38 PM PIECE WORK INSPECTOR Narrative 01/22/2008 10:26 AM PIECE WORK INSPECTOR [address] [address] Admit Date: 01/21/2008 CATHERINE MARREROA Sex: F Admit Prov: DOCTOR, NOT O Date: 1955 Primary Care Prov: NAYE DODGE CMRN: [id number] Room: [facility] SSN: [id number] IMAGING SERVICES Ordering Prov: DOCTOR, NOT O Accession Number: [id number] Interpretation BILATERAL SCREENING MAMMOGRAM 01/21/2008 Reason for [...] Procedure Note Pool Mederos MD - 01/22/[address] [address] Admit Date: 01/21/2008 ADELSO PALAK Sex: F Admit Prov: WIE Ladd Date: 1955 Primary Care Prov: NAYE DODGE CMRN: [id number] Room: [facility] SSN: [id number] IMAGING SERVICES Ordering Prov: DOCTOR WEI Ladd Interpretation BILATERAL SCREENING MAMMOGRAM 01/21/2008 Reason for [...] mammogram documented in this encounter Care Teams Unhairer Relationship Specialty Start Date End Date Jeaneth Ryan MD PCP - General Family Practice 03/30/23 documented as of this encounter
== END 2024-12-04 12:15 | disposition home or self-care (01) ==
PROVIDERS: PCP Family Medicine Sports Medicine; Visit Provider Internal Medicine Hematology & Oncology
DX: C50.111 Malignant neoplasm of central portion of right female breast (principal)
CPT/HCPCS: 78815; A9552

== ENCOUNTER 2024-12-22 14:01 | Outpatient (CLI) | payer MEDICARE, SELFPAY ==
--- NOTE | ~2024-12-22 | US_ITS ---
EXAMINATION: US breast RT limited INDICATION: 69-year old female with prior history of right mastectomy for breast cancer; presents for imaging evaluation of a palpable lump felt in the mastectomy bed. PET scan completed on 12/04/2024 showed small focus of increased uptake in the mastectomy bed and an additional small focus of moderate uptake in the subcutaneous tissue in the lateral right supraclavicular region. COMPARISON: PET scan 12/04/2024 TECHNIQUE: Targeted ultrasound of RIGHT mastectomy bed and supraclavicular region was completed. FINDINGS: A 4.3 x 0.7 x 1.7 cm heterogeneous hypoechoic irregular shaped mass with ductal tail in the central location just inferior to the mastectomy scar. The mass extends inferiorly involving the intercostal muscle area. This lesion correlates to the PET scan finding and palpable lump. Evaluation of the supraclavicular area did not show any suspicious solid or cystic mass. IMPRESSION: 1. Highly suspicious for 4.3 cm heterogeneous hypoechoic mass in the central mastectomy bed correlates to the PET scan finding and palpable lump. There is suspicion of chest wall involvement. 2. No sonographic correlate to the second area of uptake seen on the PET scan in the right supraclavicular region. RECOMMENDATION: Ultrasound-guided core needle biopsy of RIGHT mastectomy bed mass. Consider MRI of the right shoulder to evaluate the additional PET scan finding. BI-RADS 5, HIGHLY SUSPICIOUS FOR MALIGNANCY Reviewed, dictated and finalized at location B. IMPRESSION: 1. Highly suspicious for 4.3 cm heterogeneous hypoechoic mass in the central m astectomy bed correlates to the PET scan finding and palpable lump. There is zapata spicion of chest wall involvement. 2. No sonographic correlate to the second area of uptake seen on the PET scan in the right supraclavicular region. RECOMMENDATION: Ultrasound-guided core needle biopsy of RIGHT mastectomy bed mass. Consider MRI of the right shoulder to evaluate the additional PET scan finding. BI-RADS 5, HIGHLY SUSPICIOUS FOR MALIGNANCY
--- OUTSIDE RECORDS SUMMARY | 2024-12-22 16:11 | XMS_ITS | Clinical Summary ---
Author Organization [facility] [address] [place] Address [address] [place] [address] Care Team Providers Care Marbleizing Machine Tender Name Role Phone Camacho Tao MD Unavailable Angel Duong MD Unavailable Triny Conley MD Unavailable Padma Goodson NP Primary Care Provider [phone] Allergies No known active allergies Medications carvediloL [...] recommended. Assessment & Plan (05/01/2023 1:20 PM HEAD PACKAGER): Chronic. Suboptimally controlled. Counseled on healthy diet continued exercise effort and weight loss MELI (obstructive sleep apnea) 03/12/2023 Assessment & Plan (06/12/2024 9:11 AM CDT): Pt states using cpap for 8 hours/night 7 nights/wk Pt states less daytime somnolence, feels better when using it. Would recommend the continued use of cpap Following with Dr Conley (sleep med) Assessment & Plan (05/01/2023 1:20 PM HEAD PACKAGER): Recent diagnosis. Has been started on CPAP. She is working with sleep Medicine History of right mastectomy 10/02/2022 Assessment & Plan (10/16/2024 6:34 AM CDT): Patient will continue to have mammograms done at [facility] for now. Next mammogram of left breast scheduled to be done in December. Assessment & Plan (05/01/2023 1:19 PM HEAD PACKAGER): Continue use of prosthesis. Follows with Oncology. She has updated labs ordered by them to monitor. Vitamin D deficiency 10/02/2022 Assessment & Plan (05/01/2023 1:20 PM HEAD PACKAGER): Patient has open order to get updated vitamin-D level to monitor and adjust replacement as needed. She will let us know the results Osteopenia 10/02/2022 Assessment & Plan (05/01/2023 1:20 PM HEAD PACKAGER): Mild on prior bone density. Encouraged healthy diet and lifestyle as well as resistance training. Her oncologist is monitoring this Hypertension 07/02/2020 Assessment & Plan (06/12/2024 9:11 AM CDT): BP normal in office, continuing Lisinopril, Chlorthalidone, Coreg. Pt's renal function reviewed from 04/2024 (pt brought in results from [facility]). Stable. Assessment & Plan (05/01/2023 1:20 PM HEAD PACKAGER): Chronic. HTN controlled. Cont prescription Rx. Low sodium diet (DASH or Mediterranean), exercise, wt loss (if over weight) discussed Ventricular ectopy 03/19/2020 Overview (10/02/2022): 16% of all HBs holter 03/25 3.5% of all HBs holter 09/22 Nl LV fxn echo 03/25 Assessment & Plan (05/01/2023 1:20 PM HEAD PACKAGER): Chronic. Follows with Cardiology. Denies any recent [...] bra Assessment & Plan (05/01/2023 1:20 PM HEAD PACKAGER): Chronic. Uses prosthetic raw. On aromatase inhibitor. Continue care per Oncology. Has labs ordered by her oncologist for monitoring Resolved Problems Problem Noted Date Diagnosed Date Resolved Date Right bundle branch block 03/19/2020 Encounters Date Type Department Care Team Description 10/30/2024 Results Follow-Up [address] [place] [address] Jeaneth Cormier, OPAL Pap, reflex HPV 10/29/2024 9:45 AM CDT Office Visit [facility] Sleep Medicine at [address] [place] [address] Triny Conley MD MELI (obstructive sleep apnea) (Primary Dx); Hypersomnia; Obesity, unspecified class, unspecified obesity type, unspecified whether serious comorbidity present 10/29/2024 Orders Only [facility] [address] [place] [address] [address] [place] [phone] Triny Conley MD Obesity, unspecified class, unspecified obesity type, unspecified whether serious comorbidity present (Primary Dx) 10/15/2024 9:15 AM CDT Office Visit [facility] [address] [place] [address] [address] [place] [phone] Jeaneth Cormier NP Well woman exam (Primary [...] on file Legal Sex Female 8:20 PM HEAD PACKAGER Gender Identity Not on file Sexual Orientation [...] CDT Respiratory Rate 20 01/24/2024 10:15 AM HEAD PACKAGER Oxygen Saturation 98% 10/29/2024 9:30 AM CDT [...] 10/20/2024 9:10 AM CDT Performed at: - [address] [place] [id number] Sound Engineer Audio Control: Silvia Royal MD, Phone: [phone] Specimen Comment: [id number] Specimen Comment: No. of containers..01 ThinPrep Vial us Jeaneth Cormier NP LAB CYTOLOGY ORDERABLES Final Re sult [facility] - 01 * HM MAMMOGRAPHY (12/31/2023 3:03 PM CDT) us Historical Provider HEALTH MAINTENANCE Final Result from Last 3 Months or Most Recently Relevant to Health Maintenance Insurance [facility] MEDICARE ADVANTAGE Care Teams Marbleizing Machine Tender Relationship Specialty Start Date End Date Padma Goodson NP [address] [facility] [address] [place] [address] PCP - General Family Medicine 06/12/24 Camacho Tao MD [address] [facility] [address] [place] [address] Referring Physician Cardiovascular Disease 10/02/22 Angel Duong MD [address] [place] [address] Referring Physician Hematology 10/02/22 Triny Conley MD [address] [facility] [address] [place] [address] Consulting Physician Sleep Medicine 05/01/23 Skin Care [facility] Account Manager Trainee 06/12/24
== END 2024-12-22 14:02 | disposition home or self-care (01) ==
PROVIDERS: PCP Family Medicine Sports Medicine; Visit Provider Surgery
DX: R92.8 Other abnormal and inconclusive findings on diagnostic imaging of breast (principal); Z85.3 Personal history of malignant neoplasm of breast
CPT/HCPCS: 76642

== ENCOUNTER 2024-12-25 07:11 | Outpatient (CLI) | payer MEDICARE, SELFPAY ==
--- NOTE | ~2024-12-25 | US_ITS ---
PROCEDURE: US breast biopsy RT w image CLINICAL HISTORY: 69-year-old female with highly suspicious hypoechoic mass in the central right mastectomy bed, or presents for ultrasound-guided core needle biopsy procedure. COMPARISON: 12/22/2024 Following informed consent including risks, benefits, and possible complications, the patient was brought to the ultrasound suite. A time-out procedure was performed. A preliminary ultrasound of the right mastectomy bed was performed, redemonstrating irregular shaped hypoechoic mass in the central breast inferior to the mastectomy scar. The patient was prepped and draped in the usual sterile fashion. 1% lidocaine was instilled into the subcutaneous tissues. 1% lidocaine without epinephrine was injected into the deep tissues just inferior to the lesion. Approximately 15cc lidocaine was administered. A small skin yuliana was made. Multiple core samples were obtained with a 14-gauge multi pass biopsy needle. A post biopsy butterfly [place] Danny marker was placed at the biopsy site. Postprocedural ultrasound of the right mastectomy bed reveal the biopsy metal marker in good position. The patient tolerated the procedure well and was without immediate postprocedural complications. IMPRESSION: Successful ultrasound guided biopsy of mass in the right mastectomy bed. The patient tolerated the procedure well without immediate postprocedure complications. The patient was given postprocedural instructions and sent home in stable condition. Pathology report pending. Reviewed, dictated and finalized at location B. IMPRESSION: Successful ultrasound guided biopsy of mass in the right mastectomy bed. The patient tolerated the procedure well without immediate postprocedure compli cations. The patient was given postprocedural instructions and sent home in sta ble condition. Pathology report pending.
--- OUTSIDE RECORDS SUMMARY | 2024-12-25 07:15 | XMS_ITS | Encounter Summary ---
Author Organization [facility] Address [address] [place] [address] Care Team Providers Care Nurse Outreach Case Manager Name Role Phone Jeaneth Ryan MD Primary Care Provider Encounter Details Date Type Department Care Team (Late st Contact Info) Description 12/29/2003 Outpatient Historical HIS MAMM Aura Doss MD [address] [facility] [address] [place] [address] SCREENING MAMM-MAILG NEOPL-OTHER (Primary Dx) Social History Tobacco Use Types Packs/Day Years Used Date Smoking Tobacco: Never Assessed Comments Unknown Sex and Gender Information Value Date Recorded Sex Assigned at Not on file Legal Sex Female 3:52 AM NUTTER UP Gender Identity Not on file Sexual Orientation Not on file documented as of this encounter Plan of Treatment Upcoming Encounters Date Type Department Care Team (Late Contact Info) Description 01/09/2025 10:00 AM NUTTER UP Office Visit [facility] Oncology and Hematology - [place] [address] [facility] [address] [place] [address] Angel Duong MD [address] [facility] [address] [place] [address] 03/19/2025 10:45 AM NUTTER UP Office Visit [facility] Heart and Vascular At [place] [address] [facility] [address] [place] [address] Camacho Tao MD [facility] [address] [facility] [address] [place] [address] 05/13/2025 10:15 AM CDT Office Visit [facility] Oncology and Hematology - [place] [address] [facility] [address] [place] [address] Angel Duong MD [address] [facility] [address] [place] [address] documented as of this encounter Visit Diagnoses Diagnosis Other screening mammogram- Primary documented in this encounter Care Teams Nurse Outreach Case Manager Relationship Specialty Start Date End Date Jeaneth Ryan MD PCP - General Family Practice 03/30/23 documented as of this encounter
--- OUTSIDE RECORDS SUMMARY | 2024-12-25 07:15 | XMS_ITS | Encounter Summary ---
Author Organization [facility] Address [address] [place] [address] Care Team Providers Care Filling Hauler Weaving Name Role Phone Jeaneth Ryan MD Primary Care Provider Encounter Details Date Type Department Care Team (Late st Contact Info) Description 01/04/2006 Outpatient Historical HIS MAMM V[place] Aura Ngo MD [address] [facility] [address] [place], [place] [id number] Other Screening Mammogram (Primary Dx) Social History Tobacco Use Types Packs/Day Years Used Date Smoking Tobacco: Never Assessed Comments Unknown Sex and Gender Information Value Date Recorded Sex Assigned at Not on file Legal Sex Female 3:52 AM PNEUMATIC TOOL REPAIRER Gender Identity Not on file Sexual Orientation Not on file documented as of this encounter Plan of Treatment Upcoming Encounters Date Type Department Care Team (Late st Contact Info) Description 01/09/2025 10:00 AM PNEUMATIC TOOL REPAIRER Office Visit [facility] Oncology and Hematology - [place] [address] [place] [address] [address] [place] [address] Angel Duong MD [address] [facility] [address] [place] [address] 03/19/2025 10:45 AM PNEUMATIC TOOL REPAIRER Office Visit [facility] Heart and Vascular At [facility] [address] [facility] [address] [place] [phone] Camacho Tao MD [facility] [address] [facility] [address] [place], [place] [id number] 05/13/2025 10:15 AM CDT Office Visit [facility] Oncology and Hematology - [place] [address] [facility] [address] [place] [address] Angel Duong MD [address] [facility] [address] [place] [address] documented as of this encounter Visit Diagnoses Diagnosis Other screening mammogram- Primary documented in this encounter Care Teams Filling Hauler Weaving Relationship Specialty Start Date End Date Jeaneth Ryan MD PCP - General Family Practice 03/30/23 documented as of this encounter
--- OUTSIDE RECORDS SUMMARY | 2024-12-25 07:15 | XMS_ITS | Encounter Summary ---
Author Organization [facility] Address [address] [place] [address] Care Team Providers Care Commercial Lines Underwriter Name Role Phone Jeaneth Ryan MD Primary Care Provider Encounter Details Date Type Department Care Team (Late st Contact Info) Description 01/04/2005 Outpatient Historical HIS MAMM Aura Doss MD [address] [facility] [address] [place] [address] SCREENING MAMM-MAILG NEOPL NEC (Primary Dx) Social History Tobacco Use Types Packs/Day Years Used Date Smoking Tobacco: Never Assessed Comments Unknown Sex and Gender Information Value Date Recorded Sex Assigned at Not on file Legal Sex Female 3:52 AM FLORICULTURIST Gender Identity Not on file Sexual Orientation Not on file documented as of this encounter Plan of Treatment Upcoming Encounters Date Type Department Care Team (Late st Contact Info) Description 01/09/2025 10:00 AM FLORICULTURIST Office Visit [facility] Oncology and Hematology - [place] [address] [place] [address] [address] [place] [address] Angel Duong MD [address] [facility] [address] [place] [address] 03/19/2025 10:45 AM FLORICULTURIST Office Visit [facility] Heart and Vascular At [place] [address] [facility] [address] [place] [address] Camacho Tao MD [facility] [address] [facility] [address] [place] [address] 05/13/2025 10:15 AM CDT Office Visit [facility] Oncology and Hematology - [place] [address] [facility] [address] [place] [address] Angel Duong MD [address] [facility] [address] [place] [address] documented as of this encounter Visit Diagnoses Diagnosis Other screening mammogram- Primary documented in this encounter Care Teams Commercial Lines Underwriter Relationship Specialty Start Date End Date Jeaneth Ryan MD PCP - General Family Practice 03/30/23 documented as of this encounter
--- OUTSIDE RECORDS SUMMARY | 2024-12-25 07:15 | XMS_ITS | Encounter Summary ---
Author Organization [facility] Address [address] [place] [address] Care Team Providers Care Electro Plater Name Role Phone Jeaneth Ryan MD Primary Care Provider Encounter Details Date Type Department Care Team (Late st Contact Info) Description 11/06/2019 Chart Note [facility] Radiation Therapy [address] [place] [address] [place] [address] [place] [address] Social History Tobacco Use Types Packs/Day Years Used Date Smoking Tobacco: Never Smokeless Tobacco: Never Alcohol Use Standard Drinks/Week Comments Yes 0 (1 standard drink = 0.6 oz pur e alcohol) 1/6mo Comments No Sex and Gender Information Value Date Recorded Sex Assigned at Not on file Legal Sex Female 3:52 AM CLINICAL TRANSPLANT COORDINATOR Gender Identity Not on file Sexual Orientation [...] st Contact Info) Description 01/09/2025 10:00 AM CLINICAL TRANSPLANT COORDINATOR Office Visit [facility] Oncology and Hematology - [place] [address] [place] [address] Angel Duong MD [address] [facility] [address] [place] [address] 03/19/2025 10:45 AM CLINICAL TRANSPLANT COORDINATOR Office Visit [facility] Heart and Vascular At [facility] [address] [facility] [address] [place] [address] Camacho Tao MD [address] [facility] [address] [place] [address] 05/13/2025 10:15 AM CDT Office Visit [facility] Oncology and Hematology - [place] [address] [phone] Angel Duong MD [address] [facility] [address] [place] [address] documented as of this encounter Visit Diagnoses Not on filedocumented in this encounter Care Teams Electro Plater Relationship Specialty Start Date End Date Jeaneth Ryan MD PCP - General Family Practice 03/30/23 documented as of this encounter
--- OUTSIDE RECORDS SUMMARY | 2024-12-25 07:15 | XMS_ITS | Encounter Summary ---
Author Organization [facility] Address [address] [place] [address] Care Team Providers Care Night Worker Name Role Phone Jeaneth Ryan MD Primary [...] on file Legal Sex Female 3:52 AM SPECIAL EFFECTS TECHNICIAN Gender Identity Not on file Sexual Orientation Not on file documented as of this encounter Plan of Treatment Upcoming Encounters Date Type Department Care Team (Late st Contact Info) Description 01/09/2025 10:00 AM SPECIAL EFFECTS TECHNICIAN Office Visit [facility] Oncology and Hematology - [place] [address] [phone] Angel Duong MD [address] [facility] [address] [place] [phone] 03/19/2025 10:45 AM SPECIAL EFFECTS TECHNICIAN Office Visit [facility] Heart and Vascular At [place] [address] [facility] [address] [place] [address] Camacho Tao MD [facility] [address] [facility] [address] [place] [address] 05/13/2025 10:15 AM CDT Office Visit [facility] Oncology and Hematology - [place] [address] [place] [address] Angel Duong MD [address] [facility] [address] [place] [address] documented as of this encounter Visit Diagnoses Diagnosis Other screening mammogram- Primary documented in this encounter Care Teams Night Worker Relationship Specialty Start Date End Date Jeaneth Ryan MD PCP - General Family Practice 03/30/23 documented as of this encounter
--- OUTSIDE RECORDS SUMMARY | 2024-12-25 07:16 | XMS_ITS | Encounter Summary ---
Author Organization [facility] Address [address] [place] [address] Care Team Providers Care Blending Line Attendant Name Role Phone Jeaneth Ryan MD Primary Care Provider Encounter Details Date Type Department Care Team (Late st Contact Info) Description 12/31/2001 Outpatient Historical HIS MAMM Aura Doss MD [address] [facility] [address] [place] [address] SCREENING MAMM-MAILG NEOPL-OTHER (Primary Dx) Social History Tobacco Use Types Packs/Day Years Used Date Smoking Tobacco: Never Assessed Comments Unknown Sex and Gender Information Value Date Recorded Sex Assigned at Not on file Legal Sex Female 3:52 AM SERVICE OR WORK DISPATCHER CHIEF Gender Identity Not on file Sexual Orientation Not on file documented as of this encounter Plan of Treatment Upcoming Encounters Date Type Department Care Team (Late Contact Info) Description 01/09/2025 10:00 AM SERVICE OR WORK DISPATCHER CHIEF Office Visit [facility] Oncology and Hematology - [place] [address] [facility] [address] [place] [address] Angel Duong MD [address] [facility] [address] [place] [address] 03/19/2025 10:45 AM SERVICE OR WORK DISPATCHER CHIEF Office Visit [facility] Heart and Vascular At [place] [address] [facility] [address] [place] [address] Camacho Tao MD [facility] [address] [facility] [address] [place] [address] 05/13/2025 10:15 AM CDT Office Visit [facility] Oncology and Hematology - [place] [address] [facility] [address] [place] [address] Angel Duong MD [address] [facility] [address] [place] [address] documented as of this encounter Visit Diagnoses Diagnosis Other screening mammogram- Primary documented in this encounter Care Teams Blending Line Attendant Relationship Specialty Start Date End Date Jeaneth Ryan MD PCP - General Family Practice 03/30/23 documented as of this encounter
--- OUTSIDE RECORDS SUMMARY | 2024-12-25 07:16 | XMS_ITS | Encounter Summary ---
Author Organization [facility] Address [address] [place] [address] Care Team Providers Care Plumbing Drafter Name Role Phone Jeaneth Ryan MD Primary Care Provider Encounter Details Date Type Department Care Team (Late Contact Info) Description 03/16/1999 Outpatient Historical [facility] Internal Medicine [place] [address] [place] [address] Camacho Mcdonald MD [address] [place] [address] Social History Tobacco Use Types Packs/Day Years Used Date Smoking Tobacco: Never Assessed Comments Unknown Sex and Gender Information Value Date Recorded Sex Assigned at Not on file Legal Sex Female 3:52 AM SERVICE OR WORK DISPATCHER Gender Identity Not on file Sexual Orientation Not on file documented as of this encounter Plan of Treatment Upcoming Encounters Date Type Department Care Team (Late Contact Info) Description 01/09/2025 10:00 AM SERVICE OR WORK DISPATCHER Office Visit [facility] Oncology and Hematology - [place] [address] [facility] [address] [place] [address] Angel Duong MD [address] [facility] [address] [place] [address] 03/19/2025 10:45 AM SERVICE OR WORK DISPATCHER Office Visit [facility] Heart and Vascular At [facility] [address] [facility] [address] [place] [address] Camacho Tao MD [address] [facility] [address] [place] [address] 05/13/2025 10:15 AM CDT Office Visit [facility] Oncology and Hematology - [place] [address] [facility] [address] [place] [address] Angel Duong MD [address] [facility] [address] [place] [address] documented as of this encounter Visit Diagnoses Not on filedocumented in this encounter Care Teams Plumbing Drafter Relationship Specialty Start Date End Date Jeaneth Ryan MD PCP - General Family Practice 03/30/23 documented as of this encounter
--- OUTSIDE RECORDS SUMMARY | 2024-12-25 07:16 | XMS_ITS | Encounter Summary ---
Author Organization [facility] Address [address] [place] [address] Care Team Providers Care Caseworker Name Role Phone Jeaneth Ryan MD Primary Care Provider Encounter Details Date Type Department Care Team (Late Contact Info) Description 03/26/1998 Outpatient Historical [facility] Internal Medicine [place] [address] [place] [address] Camacho Mcdonald MD [address] [place] [address] Social History Tobacco Use Types Packs/Day Years Used Date Smoking Tobacco: Never Assessed Comments Unknown Sex and Gender Information Value Date Recorded Sex Assigned at Not on file Legal Sex Female 3:52 AM APARTMENT LEASING AGENT Gender Identity Not on file Sexual Orientation Not on file documented as of this encounter Plan of Treatment Upcoming Encounters Date Type Department Care Team (Late Contact Info) Description 01/09/2025 10:00 AM APARTMENT LEASING AGENT Office Visit [facility] Oncology and Hematology - [place] [address] [facility] [address] [place] [address] Angel Duong MD [address] [facility] [address] [place] [address] 03/19/2025 10:45 AM APARTMENT LEASING AGENT Office Visit [facility] Heart and Vascular At [facility] [address] [facility] [address] [place] [address] Camacho Tao MD [address] [facility] [address] [place] [address] 05/13/2025 10:15 AM CDT Office Visit [facility] Oncology and Hematology - [place] [address] [facility] [address] [place] [address] Angel Duong MD [address] [facility] [address] [place] [address] documented as of this encounter Visit Diagnoses Not on filedocumented in this encounter Care Teams Caseworker Relationship Specialty Start Date End Date Jeaneth Ryan MD PCP - General Family Practice 03/30/23 documented as of this encounter
--- OUTSIDE RECORDS SUMMARY | 2024-12-25 07:16 | XMS_ITS | Encounter Summary ---
Author Organization [facility] Address [address] [place] [address] Care Team Providers Care Township Clerk Name Role Phone Jeaneth Ryan MD Primary [...] on file Legal Sex Female 3:52 AM BUSINESS MANAGEMENT INTERN Gender Identity Not on file Sexual Orientation Not on file documented as of this encounter Plan of Treatment Upcoming Encounters Date Type Department Care Team (Late st Contact Info) Description 01/09/2025 10:00 AM BUSINESS MANAGEMENT INTERN Office Visit [facility] Oncology and Hematology - [address] [place] [address] [place] [address] [place] [phone] 03/19/2025 10:45 AM BUSINESS MANAGEMENT INTERN Office Visit [facility] Heart and Vascular At [facility] [address] [facility] [address] [place] [address] Camacho Tao MD [facility] [address] [facility] [address] [place] [address] 05/13/2025 10:15 AM CDT Office Visit [facility] Oncology and Hematology - [address] [place] [address] Angel Duong MD [address] [facility] [address] [place] [address] documented as of this encounter Procedures Procedure Name Priority Date/Time Associated Diagnosis Comments MAMMO SCREENING BILAT Routine 01/21/2008 2:38 PM BUSINESS MANAGEMENT INTERN documented in this encounter Results * MAMMO SCREENING BILAT (01/21/2008 2:38 PM BUSINESS MANAGEMENT INTERN) Anatomical Region Laterality Modality Breast Bilateral Other 01/21/2008 2:38 PM BUSINESS MANAGEMENT INTERN Narrative 01/22/2008 10:26 AM BUSINESS MANAGEMENT INTERN [address] [address] Admit Date: 01/21/2008 ROBERTH MARRERONDA Sex: F Admit Prov: DOCTOR, WEI O Date: 1955 Primary Care Prov: ECHONAYE Flowers CMRN: [id number] Room: [facility] SSN: [id number] IMAGING SERVICES Ordering Prov: WEI CORTÉS Accession Number: [id number] Interpretation BILATERAL SCREENING MAMMOGRAM 01/21/2008 Reason for [...] Procedure Note Pool Mederos MD - 01/22/[address] [address] Admit Date: 01/21/2008 PALAK MARRERO Sex: F Admit Prov: DOCTOR NOT O Date: 1955 Primary Care Prov: NAYE DODGE CMRN: [id number] Room: [facility] SSN: [id number] IMAGING SERVICES Ordering Prov: WIE CORTÉS Interpretation BILATERAL SCREENING MAMMOGRAM 01/21/2008 Reason for [...] mammogram documented in this encounter Care Teams Township Clerk Relationship Specialty Start Date End Date Jeaneth Ryan MD PCP - General Family Practice 03/30/23 documented as of this encounter
--- OUTSIDE RECORDS SUMMARY | 2024-12-25 07:16 | XMS_ITS | Encounter Summary ---
Author Organization [facility] Address [address] [place] [address] Care Team Providers Care Safe And Vault Service Mechanic Name Role Phone Jeaneth Ryan MD Primary Care Provider Encounter Details Date Type Department Care Team (Late Contact Info) Description 05/14/[address] [facility] Internal Medicine [place] [address] [place] [address] Camacho Mcdonald MD [address] [place] [address] Social History Tobacco Use Types Packs/Day Years Used Date Smoking Tobacco: Never Assessed Comments Unknown Sex and Gender Information Value Date Recorded Sex Assigned at Not on file Legal Sex Female 3:52 AM BUILDING EQUIPMENT INSPECTOR Gender Identity Not on file Sexual Orientation Not on file documented as of this encounter Plan of Treatment Upcoming Encounters Date Type Department Care Team (Late Contact Info) Description 01/09/2025 10:00 AM BUILDING EQUIPMENT INSPECTOR Office Visit [facility] Oncology and Hematology - Ryan [address] [facility] [address] [place] [address] Angel Duong MD [address] [facility] [address] [place] [address] 03/19/2025 10:45 AM BUILDING EQUIPMENT INSPECTOR Office Visit [facility] Heart and Vascular At [facility] [address] [facility] [address] [place] [address] Camacho Tao MD [address] [facility] [address] [place] [address] 05/13/2025 10:15 AM CDT Office Visit [facility] Oncology and Hematology - [place] [address] [facility] [address] [place] [address] Angel Duong MD [address] [facility] [address] [place] [address] documented as of this encounter Visit Diagnoses Not on filedocumented in this encounter Care Teams Safe And Vault Service Mechanic Relationship Specialty Start Date End Date Jeaneth Ryan MD PCP - General Family Practice 03/30/23 documented as of this encounter
--- OUTSIDE RECORDS SUMMARY | 2024-12-25 07:16 | XMS_ITS | Encounter Summary ---
Author Organization [facility] Address [address] [place] [address] Care Team Providers Care Classifier Operator Name Role Phone Jeaneth Ryan MD [...] on file Legal Sex Female 3:52 AM TOOL AND MACHINE MAINTAINER Gender Identity Not on file Sexual Orientation Not on file documented as of this encounter Plan of Treatment Upcoming Encounters Date Type Department Care Team (Late st Contact Info) Description 01/09/2025 10:00 AM TOOL AND MACHINE MAINTAINER Office Visit [facility] [place] [facility] Oncology and Hematology - Ryan [address] [facility] 200 [place] [address] Angel Duong MD [address] [facility] [address] [place] [address] 03/19/2025 10:45 AM TOOL AND MACHINE MAINTAINER Office Visit [facility] Heart and Vascular At [place] [address] [facility] [address] [place] [address] Camacho Tao MD [facility] [address] [facility] [address] [place] [address] 05/13/2025 10:15 AM CDT Office Visit [facility] Oncology and Hematology - Ryan [address] [facility] [address] [place] [address] Angel Duong MD [address] [facility] [address] [place] [address] documented as of this encounter Visit Diagnoses Diagnosis Other screening mammogram- Primary documented in this encounter Care Teams Classifier Operator Relationship Specialty Start Date End Date Jeaneth Ryan MD PCP - General Family Practice 03/30/23 documented as of this encounter
--- OUTSIDE RECORDS SUMMARY | 2024-12-25 07:16 | XMS_ITS | Encounter Summary ---
Author Organization [facility] Address [address] [place] [address] Care Team Providers Care Microfabrication Engineer Manager Name Role Phone Jeaneth Ryan MD Primary Care Provider Encounter Details Date Type Department Care Team (Late st Contact Info) Description 05/11/1998 Outpatient Historical [facility] Internal Medicine [place] [address] [place] [address] Shabbir Horta MD [address] [place] [phone] Social History Tobacco Use Types Packs/Day Years Used Date Smoking Tobacco: Never Assessed Comments Unknown Sex and Gender Information Value Date Recorded Sex Assigned at Not on file Legal Sex Female 3:52 AM VP CORPORATE PARTNERSHIPS Gender Identity Not on file Sexual Orientation Not on file documented as of this encounter Plan of Treatment Upcoming Encounters Date Type Department Care Team (Late st Contact Info) Description 01/09/2025 10:00 AM VP CORPORATE PARTNERSHIPS Office Visit [facility] Oncology and Hematology - Ryan [address] [facility] [address] [place] [address] Angel Duong MD [address] [facility] [address] [place] [address] 03/19/2025 10:45 AM VP CORPORATE PARTNERSHIPS Office Visit [facility] Heart and Vascular At [place] [address] [facility] [address] [place] [address] Camacho Tao MD [address] [place] [address] [address] [place] [address] 05/13/2025 10:15 AM CDT Office Visit [facility] Oncology and Hematology - [place] [address] [facility] [address] [place] [address] Angel Duong MD [address] [facility] [address] [place] [address] documented as of this encounter Visit Diagnoses Not on filedocumented in this encounter Care Teams Microfabrication Engineer Manager Relationship Specialty Start Date End Date Jeaneth Ryan MD PCP - General Family Practice 03/30/23 documented as of this encounter
--- OUTSIDE RECORDS SUMMARY | 2024-12-25 07:17 | XMS_ITS | Clinical Summary ---
Author Organization [facility] [address] Address [address] [place] [address] Care Team Providers Care Joint Terminal Attack Controller Name Role Phone Camacho Tao MD Unavailable Angel Duong MD Unavailable [phone] Triny Conley MD Unavailable Padma Goodson NP Primary Care Provider [phone] Allergies No known active allergies Medications carvediloL [...] recommended. Assessment & Plan (05/01/2023 1:20 PM HOG COOLER): Chronic. Suboptimally controlled. Counseled on healthy diet continued exercise effort and weight loss MELI (obstructive sleep apnea) 03/12/2023 Assessment & Plan (06/12/2024 9:11 AM CDT): Pt states using cpap for 8 hours/night 7 nights/wk Pt states less daytime somnolence, feels better when using it. Would recommend the continued use of cpap Following with Dr Conley (sleep med) Assessment & Plan (05/01/2023 1:20 PM HOG COOLER): Recent diagnosis. Has been started on CPAP. She is working with sleep Medicine History of right mastectomy 10/02/2022 Assessment & Plan (10/16/2024 6:34 AM CDT): Patient will continue to have mammograms done at [facility] for now. Next mammogram of left breast scheduled to be done in December. Assessment & Plan (05/01/2023 1:19 PM HOG COOLER): Continue use of prosthesis. Follows with Oncology. She has updated labs ordered by them to monitor. Vitamin D deficiency 10/02/2022 Assessment & Plan (05/01/2023 1:20 PM HOG COOLER): Patient has open order to get updated vitamin-D level to monitor and adjust replacement as needed. She will let us know the results Osteopenia 10/02/2022 Assessment & Plan (05/01/2023 1:20 PM HOG COOLER): Mild on prior bone density. Encouraged healthy diet and lifestyle as well as resistance training. Her oncologist is monitoring this Hypertension 07/02/2020 Assessment & Plan (06/12/2024 9:11 AM CDT): BP normal in office, continuing Lisinopril, Chlorthalidone, Coreg. Pt's renal function reviewed from 04/2024 (pt brought in results from [facility]). Stable. Assessment & Plan (05/01/2023 1:20 PM HOG COOLER): Chronic. HTN controlled. Cont prescription Rx. Low sodium diet (DASH or Mediterranean), exercise, wt loss (if over weight) discussed Ventricular ectopy 03/19/2020 Overview (10/02/2022): 16% of all HBs holter 03/25 3.5% of all HBs holter 09/22 Nl LV fxn echo 03/25 Assessment & Plan (05/01/2023 1:20 PM HOG COOLER): Chronic. Follows with Cardiology. Denies any recent [...] bra Assessment & Plan (05/01/2023 1:20 PM HOG COOLER): Chronic. Uses prosthetic raw. On aromatase inhibitor. Continue care per Oncology. Has labs ordered by her oncologist for monitoring Resolved Problems Problem Noted Date Diagnosed Date Resolved Date Right bundle branch block 03/19/2020 Encounters Date Type Department Care Team Description 10/30/2024 Results Follow-Up [facility] [address] [place] [address] Jeaneth Cormier, MATERIAL HANDLER 2ND SHIFT Pap, reflex HPV 10/29/2024 9:45 AM CDT Office Visit [facility] Sleep Medicine at [address] [place] [address] Triny Conley MD MELI (obstructive sleep apnea) (Primary Dx); Hypersomnia; Obesity, unspecified class, unspecified obesity type, unspecified whether serious comorbidity present 10/29/2024 Orders Only [facility] [address] [place] [address] [address] [place] [address] Triny Conley MD Obesity, unspecified class, unspecified obesity type, unspecified whether serious comorbidity present (Primary Dx) 10/15/2024 9:15 AM CDT Office Visit [facility] [address] [place] [address] [address] [place] [address] Jeaneth Cormier NP Well woman exam (Primary [...] on file Legal Sex Female 8:20 PM HOG COOLER Gender Identity Not on file Sexual Orientation [...] CDT Respiratory Rate 20 01/24/2024 10:15 AM HOG COOLER Oxygen Saturation 98% 10/29/2024 9:30 AM CDT [...] 10/20/2024 9:10 AM CDT Performed at: - [address] [place] [id number] Metrology Specialist: Silvia Royal MD, Phone: [phone] Specimen Comment: [id number] Specimen Comment: No. of containers..01 ThinPrep Vial Jeaneth Cormier NP LAB CYTOLOGY ORDERABLES Final Re sult [facility] - 01 * HM MAMMOGRAPHY (12/31/2023 3:03 PM CDT) Historical Provider HEALTH MAINTENANCE Final Result from Last 3 Months or Most Recently Relevant to Health Maintenance Insurance [facility] MEDICARE ADVANTAGE Care Teams Joint Terminal Attack Controller Relationship Specialty Start Date End Date Padma Goodson NP [address] [facility] [address] [place] [address] PCP - General Family Medicine 06/12/24 Camacho Tao MD [address] [facility] [address] [facility] [address] [place] [address] Referring Physician Cardiovascular Disease 10/02/22 Angel Duong MD [address] [place] [address] Referring Physician Hematology 10/02/22 Triny Conley MD [address] [place] [address] [address] [place] [address] Consulting Physician Sleep Medicine 05/01/23 [facility] Engineering Lecturer 06/12/24
--- OUTSIDE RECORDS SUMMARY | 2024-12-25 07:17 | XMS_ITS | Encounter Summary ---
Author Organization [facility] Healthcare Address [address] [place] [address] Care Team Providers Care Jammer Operator Name Role Phone Camacho Tao MD Unavailable Angel Duong MD Unavailable [phone] Triny Conley MD Unavailable Padma Goodson NP Primary Care Provider [phone] Encounter Details Date Type Department Care Team (Late st Contact Info) Description 10/30/2024 Results Follow-Up [facility] [address] [place] [address] [address] [place] [address] Jeaneth Cormier NP [address] [place] [address] [address] [address] Pap, reflex HPV Social History [...] on file Legal Sex Female 8:20 PM AIRWAYS OPERATIONS SPECIALIST Gender Identity Not on file Sexual Orientation Not on file documented as of this encounter Plan of Treatment Not on file documented as of this encounter Visit Diagnoses Not on filedocumented in this encounter Care Teams Jammer Operator Relationship Specialty Start Date End Date Padma Goodson DRAWING INSTRUCTOR [address] [facility] [address] [place] [address] PCP - General Family Medicine 06/12/24 Camacho Tao MD [address] [facility] [facility] [address] [place] [address] Referring Physician Cardiovascular Disease 10/02/22 Angel Duong MD [address] [place] [address] Referring Physician Hematology 10/02/22 Triny Conley MD [address] [facility] [address] [place] [address] Consulting Physician Sleep Medicine 05/01/23 [facility][1] Traffic Clerk 06/12/24 documented as of this encounter
--- OUTSIDE RECORDS SUMMARY | 2024-12-25 07:17 | XMS_ITS | Clinical Summary ---
Author Organization [facility] Address [address] [place] [address] Phone Care Team Providers Care Physical Education Aide Name Role Phone Jeaneth Barr MD Primary Care Provider Allergies No known active allergies Medications Blood Pressure Monitor Kit 1 Each by Other route daily. 3 Active cholecalciferol , Vitamin D3, (VITAMIN D3) 25 mcg (1,000 unit) Capsule Take by mouth daily. Every other day Active chlorthalidone (HYGROTON) 25 mg tablet TAKE [...] AFTER BREAKFAST. 90 Tablet 3 5 Active lisinopriL (PRINIVIL) 10 mg tablet TAKE 1 TABLET (10 MG) BY MOUTH DAILY. 90 Tablet 3 5 Active lisinopriL (PRINIVIL) 10 mg tablet TAKE 1 TABLET (10 MG) BY MOUTH DAILY. 90 Tablet 2 5 12/10/19 25 Discontinued Active Problems Patient Care Coordination No te Formatting of this note migh t be different from the original. Dr. Camacho Tao - Student Development Advisor (HH) Problem Noted Date Diagnosed Date HLD [...] Encounters Date Type Department Care Team Description 12/11/2024 4:30 PM CDT Telephone Check Up [facility] Oncology and Hematology - [place] [address] [place] [address] Angel Duong MD Malignant neoplasm of central portion of right breast (CMS/HCC) (Primary Dx) 12/09/2024 Refill [facility] Heart and Vascular At [address] [place] [address] Camacho Tao MD 12/05/2024 Orders Only [facility] Oncology and Hematology - [place] [address] [place] [address] Angel Duong MD 12/03/2024 Telephone [facility] Oncology and Hematology - Ryan [address] [place] [address] Angel Duong MD repeat lab results 12/02/2024 Orders Only [facility] Oncology and Hematology - [place] [address] [place] [address] Angel Duong MD 11/27/2024 1:15 PM CDT Office Visit [facility] Oncology and Hematology - [place] [address] [place] [address] Angel Duong MD Malignant neoplasm of central portion of right breast (CMS/HCC) (Primary Dx) 2024 Orders Only [facility] Oncology [facility] Hematology [facility] [address] [place] [address] Angel Duong MD 11/18/2024 External Device Data STL ABSTRACTION Provider, Abstract 11/04/2024 External Device Data STL ABSTRACTION Provider, Abstract 11/02/2024 Refill [facility] Oncology and Hematology [facility] [address] [place] [address] Angel Duong MD Malignant neoplasm of central portion of right breast (CMS/HCC) 10/18/2024 Refill [facility] Heart and Vascular At [address] [place] [address] Camacho Tao MD 10/14/2024 External Device Data STL ABSTRACTION Provider, Abstract 09/25/2024 10:45 AM CDT Office Visit [facility] Heart and Vascular At [address] [place] [address] Camacho Tao MD Ventricular ectopy (Primary Dx); Hypertension; Hyperlipidemia from Last 3 Months Family History Medical [...] on file Legal Sex Female 3:52 AM LOOM CHECKER Gender Identity Not on file Sexual Orientation [...] st Contact Info) Description 01/09/2025 10:00 AM LOOM CHECKER Office Visit [facility] Oncology and Hematology [facility] [address] [place] [address] Angel Duong MD [facility] [address] [place] [address] 03/19/2025 10:45 AM LOOM CHECKER Office Visit [facility] Heart and Vascular At [place] [address] [facility] [address] [place] [address] Camacho Tao MD [facility] S [facility] [address] [place] [address] 05/13/2025 10:15 AM CDT Office Visit [facility] Oncology and Hematology [facility] [address] [place] [address] Angel Duong MD [facility] [address] [place] [address] Health Maintenance Due Date Last Done Comments [...] series) 11/25/2031 Medical Devices Implanted Type Area Hand Ii Tube Bender Device Identifier Shelf Expiration Date Model / Serial / Lot Log [id number] - Vascular Access Ports - 1 - Port Pwrprt Mri 8fr [id number] Implanted:Qty: 1 on 05/03/2010 at [facility] Port Left: Chest Wall CR BARD- ACCESS SYS 10/04/2011 [id number] / [id number] / [id number] Procedures Procedure Name Priority Date/Time Associated Diagnosis Comments PET BONE IMG W CT SKL BSE MID THG Routine 12/04/2024 10:52 AM CDT CHG CA 15 3 Routine 11/28/2024 10:18 AM CDT COMPREHENSIVE METABOLIC PANEL Routine 11/28/2024 9:39 AM CDT CHG CA 15 3 Routine 11/20/2024 2:47 PM CDT COMPREHENSIVE METABOLIC PANEL Routine 11/20/2024 12:06 PM CDT CBC WITH AUTODIFFERENTIAL Routine 11/20/2024 11:49 AM CDT XR DEXA BONE DENSITY W VERTEBRAL FX Routine 03/04/2024 12:14 PM LOOM CHECKER MAMMO SCREENING UNILATERAL LEFT Routine 12/31/2023 2:36 PM CDT COLONOSCOPY REPORT 06/26/2023 9: 23 AM CDT from Last 3 Months or Most Recently Relevant to Health Maintenance Results * PET BONE IMG W CT SKB MDTH (12/04/2024 10:52 AM CDT) Anatomical Region Laterality Modality Positron Emissio n Tomography (PET) us Angel Duong MD PE ORDERABLES Final Result * CHG CA 15 3 (11/28/2024 10:18 AM CDT) Only the most recent of2 resultswithin the time period is included. Result Eric Duong MD CHG - LABORATORY Final Result * COMPREHENSIVE METABOLIC PANEL (11/28/2024 9:39 AM CDT) Only the most recent of2 resultswithin the time period is included. Blood Result Eric Duong MD CHEMISTRY ORDERABLES Final Resu lt * CBC WITH AUTODIFFERENTIAL (11/20/2024 11:49 AM CDT) Blood us Angel Duong MD HEMATOLOGY ORDERABLES Final Res ult * XR DEXA BONE DENSITY W VERTEBRAL FX (03/04/2024 12:14 PM LOOM CHECKER) Anatomical Region Laterality Modality Spine Other Result Eric Duong MD DIAGNOSTIC IMAGING ORDERABLES F inal Result * MAMMO SCREENING UNILATERAL LEFT (12/31/2023 2:36 PM CDT) Anatomical Region Laterality Modality Breast Left Mammography us Angel Duong MD MAMMO ORDERABLES Final Result * COLONOSCOPY REPORT (06/26/2023 9:23 AM CDT) Narrative Procedure Note Claudia Hinkle MD - 06/26/2023 9:23 AM CDT [facility] Endoscopy Patient Name: Palak Marrero [...] of Addenda: [address]; [place] [address] Claudia Hinkle MD GI PROCEDURE ORDERABLES Final Result from Last 3 Months or Most Recently Relevant to Health Maintenance Insurance RX [facility] [employer] Advance Directives For more information, please contact: [phone] * Full Code (Latest Code Status on [...] 1:17 PM 05/10/2010 5:45 PM Care Teams Physical Education Aide Relationship Specialty Start Date End Date Jeaneth Barr MD PCP - General Family Practice 03/30/23
--- OUTSIDE RECORDS SUMMARY | 2024-12-25 07:17 | XMS_ITS ---
Author Organization [facility] Address [address] [place] [address] Phone Care Team Providers Care Environmental Manager Name Role Phone Jeaneth Ryan MD Primary Care Provider Active Problems Patient Care Coordination No te Formatting of this note migh t be different from the original. Dr. Camacho Tao - Behavioral Health Counselor (HH) Problem Noted Date Diagnosed Date HLD [...]
--- NOTE | 2024-12-25 08:23 | S_PTH ---
PATIENT: Palak Marrero LOC: [facility] U#:[id number] AGE/SX: 69/F ROOM: RE12/25/[address]: Yesenia Dillard MD : 1955 BED: DIS: 12/25/2024 SPEC #: [id number] RECD: 12/25/24 09:07 STATUS: JAMIE REMir #: [id number] RUDDY: 12/25/24 08:[address]: Yesenia Dillard DEPT: [employer] [facility] Surgical RECD BY: Elisa Ayala ENTERED: 12/25/24 09:08 SP TYPE: Surgical OTHR DR: Padma Goodson, CROP DUSTER Tissues: A - Breast Biopsy Procedures: Hematoxylin and Eosin Stain Gross and Microscopic Level 4 ER-60 MD-60 MIB-60 HER 2-60
== END 2024-12-25 07:12 | disposition home or self-care (01) ==
PROVIDERS: PCP Nurse Practitioner Family; Visit Provider Surgery
DX: N63.41 Unspecified lump in right breast, subareolar (principal); Z85.3 Personal history of malignant neoplasm of breast
CPT/HCPCS: 19083; 88305

== ENCOUNTER 2024-12-31 08:44 | Outpatient (CLI) | payer MEDICARE, SELFPAY ==
--- NOTE | ~2024-12-31 | MM_ITS ---
EXAMINATION: MM screening cody LT w jody HISTORY: Screening TECHNIQUE: Craniocaudal and mediolateral oblique 3-D tomosynthesis images were obtained and synthetic 2-D images were generated. CAD analysis was submitted and interpreted. COMPARISON: Comparison to multiple prior studies sequentially, with oldest reviewed study dated 11/27/2019. BREAST PARENCHYMAL COMPOSITION: Not Dense: The breasts are almost entirely fatty. FINDINGS: There is no evidence of suspicious mass, calcification, or architectural distortion to suggest malignancy in either breast. There has been no suspicious interval change. IMPRESSION: 1. No mammographic evidence of malignancy. 2. Recommend routine screening mammography in one year. BI-RADS Category 1: Negative Reviewed, dictated and finalized at location B.
--- OUTSIDE RECORDS SUMMARY | 2024-12-31 09:13 | XMS_ITS | Encounter Summary ---
Author Organization [facility] Address [address] [place] [address] Care Team Providers Care Spray Foam Installer Name Role Phone Jeaneth Ryan MD Primary Care Provider Encounter Details Date Type Department Care Team (Late st Contact Info) Description 01/04/2006 Outpatient Historical HIS MAMM VAN Aura Ngo MD [address] [facility] [address] [place], [place] [id number] Other Screening Mammogram (Primary Dx) Social History Tobacco Use Types Packs/Day Years Used Date Smoking Tobacco: Never Assessed Comments Unknown Sex and Gender Information Value Date Recorded Sex Assigned at Not on file Legal Sex Female 3:52 AM ORACLE BPM CONSULTANT Gender Identity Not on file Sexual Orientation Not on file documented as of this encounter Plan of Treatment Upcoming Encounters Date Type Department Care Team (Late st Contact Info) Description 01/09/2025 10:00 AM ORACLE BPM CONSULTANT Office Visit [facility] Oncology and Hematology - [place] [address] [place] [address] [address] [place] [address] [place] Duong MD [address] [facility] [address] [place] [address] 03/19/2025 10:45 AM ORACLE BPM CONSULTANT Office Visit [facility] Heart and Vascular At [facility] [address] [facility] [address] [place] [phone] Camacho Tao MD [facility] [address] [facility] [address] [place], [place] [id number] 05/13/2025 10:15 AM CDT Office Visit [facility] Oncology and Hematology - [place] [address] [facility] [address] [place] [address] Angel Duong MD [address] [facility] [address] [place] [address] documented as of this encounter Visit Diagnoses Diagnosis Other screening mammogram- Primary documented in this encounter Care Teams Spray Foam Installer Relationship Specialty Start Date End Date Jeaneth Ryan MD PCP - General Family Practice 03/30/23 documented as of this encounter
--- OUTSIDE RECORDS SUMMARY | 2024-12-31 09:13 | XMS_ITS | Encounter Summary ---
Author Organization [facility] Address [address] [place] [address] Care Team Providers Care Plant Biology Professor Name Role Phone Jeaneth Ryan MD Primary Care Provider Encounter Details Date Type Department Care Team (Late st Contact Info) Description 05/11/1998 Outpatient Historical [facility] Internal Medicine [place] [address] [place] [address] Shabbir Horta MD [address] [place] [phone] Social History Tobacco Use Types Packs/Day Years Used Date Smoking Tobacco: Never Assessed Comments Unknown Sex and Gender Information Value Date Recorded Sex Assigned at Not on file Legal Sex Female 3:52 AM COTTON WEIGHER OPERATOR Gender Identity Not on file Sexual Orientation Not on file documented as of this encounter Plan of Treatment Upcoming Encounters Date Type Department Care Team (Late st Contact Info) Description 01/09/2025 10:00 AM COTTON WEIGHER OPERATOR Office Visit [facility] Oncology and Hematology - [place] [address] [facility] [address] [place] [address] [place] Duong MD [address] [facility] [address] [place] [address] 03/19/2025 10:45 AM COTTON WEIGHER OPERATOR Office Visit [facility] Heart and Vascular At [place] [address] [facility] [address] [place] [address] Camacho Tao MD [address] [place] [address] [address] [place] [address] 05/13/2025 10:15 AM CDT Office Visit [facility] Oncology and Hematology - [place] [address] [facility] [address] [place] [address] Angel Duong MD [address] [facility] [address] [place] [address] documented as of this encounter Visit Diagnoses Not on filedocumented in this encounter Care Teams Plant Biology Professor Relationship Specialty Start Date End Date Jeaneth Ryan MD PCP - General Family Practice 03/30/23 documented as of this encounter
--- OUTSIDE RECORDS SUMMARY | 2024-12-31 09:13 | XMS_ITS | Encounter Summary ---
Author Organization [facility] Address [address] [place] [address] Care Team Providers Care Pollution Control Technician Name Role Phone Jeaneth Ryan MD Primary Care Provider Encounter Details Date Type Department Care Team (Late Contact Info) Description 03/26/1998 Outpatient Historical [facility] Internal Medicine [place] [address] [place] [address] Camacho Mcdonald MD [address] [place] [address] Social History Tobacco Use Types Packs/Day Years Used Date Smoking Tobacco: Never Assessed Comments Unknown Sex and Gender Information Value Date Recorded Sex Assigned at Not on file Legal Sex Female 3:52 AM POSTMASTER RELIEF Gender Identity Not on file Sexual Orientation Not on file documented as of this encounter Plan of Treatment Upcoming Encounters Date Type Department Care Team (Late Contact Info) Description 01/09/2025 10:00 AM POSTMASTER RELIEF Office Visit [facility] Oncology and Hematology - [place] [address] [facility] [address] [place] [address] nAgel Duong MD [address] [facility] [address] [place] [address] 03/19/2025 10:45 AM POSTMASTER RELIEF Office Visit [facility] Heart and Vascular At [facility] [address] [facility] [address] [place] [address] Camacho Tao MD [address] [place] [address] 05/13/2025 10:15 AM CDT Office Visit [facility] Oncology and Hematology - [place] [address] [facility] [address] [place] [address] Angel Duong MD [address] [facility] [address] [place] [address] documented as of this encounter Visit Diagnoses Not on filedocumented in this encounter Care Teams Pollution Control Technician Relationship Specialty Start Date End Date Jeaneth Ryan MD PCP - General Family Practice 03/30/23 documented as of this encounter
--- OUTSIDE RECORDS SUMMARY | 2024-12-31 09:13 | XMS_ITS | Encounter Summary ---
Author Organization [facility] Healthcare Address [address] [place] [address] Care Team Providers Care Blow Off Worker Name Role Phone Camacho Tao MD Unavailable [place] Duong MD Unavailable [phone] Triny Conley MD Unavailable Padma Goodson NP Primary Care Provider [phone] Reason for Referral * Diagnostic Imaging (Routine) - Closed Specialty Diagnoses / Procedures Referred By Contac t Referred To Contact Procedures US Breast Right Limited Meir Meek MD [address] [place] [address] Phone: tel: Referral ID Status Reason Start Date Expiration Date Visits Re quested Visits Authorized [id number] Closed 12/29/2024 01/28/2026 1 1 Encounter Details Date Type Department Care Team (Late st Contact Info) Description 12/29/2024 Orders Only [facility] Medical Group Primary Care at [address] [address] Meir Meek MD [address] [place] [address] Social History Tobacco Use Types Packs/Day Years [...] on file Legal Sex Female 8:20 PM PROCUREMENT SERVICES MANAGER Gender Identity Not on file Sexual Orientation Not on file documented as of this encounter Plan of Treatment Not on file documented as of this encounter Procedures Procedure Name Priority Date/Time Associated Diagnosis Comments US BREAST RIGHT LIMITED Schedule Routine, Read Routine (OP Routine) 12/25/2024 2:00 PM CDT documented in this encounter Results * US Breast Right Limited (12/25/2024 2:00 PM CDT) Anatomical Region Laterality Modality Breast Right Mammography us Historical Provider MD [place] [facility]MO PROCEDURES Stephanie l Result documented in this encounter Visit Diagnoses Not on filedocumented in this encounter Care Teams Blow Off Worker Relationship Specialty Start Date End Date Padma Goodson NP [address] [place] [address] PCP - General Family Medicine 06/12/24 Camacho Tao MD [address] [place] [address] Referring Physician Cardiovascular Disease 10/02/22 [place] Duong MD [address] [facility] [address] [place] [address] Referring Physician Hematology 10/02/22 Triny Conley MD [address] [place] [address] [address] [place] [address] Consulting Physician Sleep Medicine 05/01/23 Skin Care [facility] Launching Pad Mechanic 06/12/24 documented as of this encounter
--- OUTSIDE RECORDS SUMMARY | 2024-12-31 09:13 | XMS_ITS | Encounter Summary ---
Author Organization [facility] Address [address] [place] [address] Care Team Providers Care Correctional Cook Name Role Phone Jeaneth Ryan MD Primary Care Provider Encounter Details Date Type Department Care Team (Late st Contact Info) Description 12/29/2003 Outpatient Historical HIS MAMM Aura Doss MD [address] [facility] [address] [place] [address] SCREENING MAMM-MAILG NEOPL-OTHER (Primary Dx) Social History Tobacco Use Types Packs/Day Years Used Date Smoking Tobacco: Never Assessed Comments Unknown Sex and Gender Information Value Date Recorded Sex Assigned at Not on file Legal Sex Female 3:52 AM TRACK GRINDER Gender Identity Not on file Sexual Orientation Not on file documented as of this encounter Plan of Treatment Upcoming Encounters Date Type Department Care Team (Late Contact Info) Description 01/09/2025 10:00 AM TRACK GRINDER Office Visit [facility] Oncology and Hematology - [place] [address] [facility] [address] [place] [address] [place] Duong MD [address] [facility] [address] [place] [address] 03/19/2025 10:45 AM TRACK GRINDER Office Visit [facility] Heart and Vascular At [place] [address] [facility] [address] [place] [address] Camacho Tao MD [facility] [address] [facility] [address] [place] [address] 05/13/2025 10:15 AM CDT Office Visit [facility] Oncology and Hematology - [place] [address] [facility] [address] [place] [address] Angel Duong MD [address] [facility] [address] [place] [address] documented as of this encounter Visit Diagnoses Diagnosis Other screening mammogram- Primary documented in this encounter Care Teams Correctional Cook Relationship Specialty Start Date End Date Jeaneth Ryan MD PCP - General Family Practice 03/30/23 documented as of this encounter
--- OUTSIDE RECORDS SUMMARY | 2024-12-31 09:13 | XMS_ITS | Encounter Summary ---
Author Organization [facility] Address [address] [place] [address] Care Team Providers Care Photograph Editor Name Role Phone Jeaneth Ryan MD Primary Care Provider Encounter Details Date Type Department Care Team (Late st Contact Info) Description 01/04/2005 Outpatient Historical HIS MAMM Aura Doss MD [address] [facility] [address] [place] [address] SCREENING MAMM-MAILG NEOPL NEC (Primary Dx) Social History Tobacco Use Types Packs/Day Years Used Date Smoking Tobacco: Never Assessed Comments Unknown Sex and Gender Information Value Date Recorded Sex Assigned at Not on file Legal Sex Female 3:52 AM HVAC DESIGNER Gender Identity Not on file Sexual Orientation Not on file documented as of this encounter Plan of Treatment Upcoming Encounters Date Type Department Care Team (Late st Contact Info) Description 01/09/2025 10:00 AM HVAC DESIGNER Office Visit [facility] Oncology and Hematology - [place] [address] [place] [address] [address] [place] [address] [place] Duong MD [address] [facility] [address] [place] [address] 03/19/2025 10:45 AM HVAC DESIGNER Office Visit [facility] Heart and Vascular At [place] [address] [facility] [address] [place] [address] Camacho Tao MD [facility] [address] [facility] [address] [place] [address] 05/13/2025 10:15 AM CDT Office Visit [facility] Oncology and Hematology - [place] [address] [address] [place] [address] Angel Duong MD [address] [facility] [address] [place] [address] documented as of this encounter Visit Diagnoses Diagnosis Other screening mammogram- Primary documented in this encounter Care Teams Photograph Editor Relationship Specialty Start Date End Date Jeaneth Ryan MD PCP - General Family Practice 03/30/23 documented as of this encounter
--- OUTSIDE RECORDS SUMMARY | 2024-12-31 09:13 | XMS_ITS | Encounter Summary ---
Author Organization [facility] Address [address] [place] [address] Care Team Providers Care Overhead Irrigator Name Role Phone Jeaneth Ryan MD Primary [...] on file Legal Sex Female 3:52 AM CASE WORKER Gender Identity Not on file Sexual Orientation Not on file documented as of this encounter Plan of Treatment Upcoming Encounters Date Type Department Care Team (Late st Contact Info) Description 01/09/2025 10:00 AM CASE WORKER Office Visit [facility] Oncology and Hematology - [place] [address] [phone] Angel Duong MD [address] [facility] [address] [place] [phone] 03/19/2025 10:45 AM CASE WORKER Office Visit [facility] Heart and Vascular At [place] [address] [facility] [address] [place] [address] Camacho Tao MD [facility] [address] [facility] [address] [place] [address] 05/13/2025 10:15 AM CDT Office Visit [facility] Oncology and Hematology - [place] [address] [place] [address] Angel Duong MD [address] [facility] [address] [place] [address] documented as of this encounter Visit Diagnoses Diagnosis Other screening mammogram- Primary documented in this encounter Care Teams Overhead Irrigator Relationship Specialty Start Date End Date Jeaneth Ryan MD PCP - General Family Practice 03/30/23 documented as of this encounter
--- OUTSIDE RECORDS SUMMARY | 2024-12-31 09:13 | XMS_ITS | Encounter Summary ---
Author Organization [facility] Address [address] [place] [address] Care Team Providers Care Television Analyzer Name Role Phone Jeaneth Ryan MD Primary [...] on file Legal Sex Female 3:52 AM ELECTROPHONIC ENGINEER Gender Identity Not on file Sexual Orientation Not on file documented as of this encounter Plan of Treatment Upcoming Encounters Date Type Department Care Team (Late st Contact Info) Description 01/09/2025 10:00 AM ELECTROPHONIC ENGINEER Office Visit [facility] Oncology and Hematology - [place] [address] [place] [address] [place] [address] [place] [phone] 03/19/2025 10:45 AM ELECTROPHONIC ENGINEER Office Visit [facility] Heart and Vascular At [facility] [address] [facility] [address] [place] [address] Camacho Tao MD [facility] [address] [facility] [address] [place] [address] 05/13/2025 10:15 AM CDT Office Visit [facility] Oncology and Hematology - [place] [address] [place] [address] Angel Duong MD [address] [facility] [address] [place] [address] documented as of this encounter Procedures Procedure Name Priority Date/Time Associated Diagnosis Comments MAMMO SCREENING BILAT Routine 01/21/2008 2:38 PM ELECTROPHONIC ENGINEER documented in this encounter Results * MAMMO SCREENING BILAT (01/21/2008 2:38 PM ELECTROPHONIC ENGINEER) Anatomical Region Laterality Modality Breast Bilateral Other 01/21/2008 2:38 PM ELECTROPHONIC ENGINEER Narrative 01/22/2008 10:26 AM ELECTROPHONIC ENGINEER [address] [address] Admit Date: 01/21/2008 ROBERTH MARRERONDA Sex: F Admit Prov: DOCTOR, WEI O Date: 1955 Primary Care Prov: ECHONYAE Flowers CMRN: [id number] Room: [facility] SSN: [id number] IMAGING SERVICES Ordering Prov: WEI CORTÉS Accession Number: [id number] Interpretation BILATERAL SCREENING MAMMOGRAM 01/21/2008 Reason for [...] Procedure Note Pool Mederos MD - 01/22/[address] [address] Admit Date: 01/21/2008 PALAK MARRERO Sex: F Admit Prov: DOCTOR NOT O Date: 1955 Primary Care Prov: NAYE DODGE CMRN: [id number] Room: [facility] SSN: [id number] IMAGING SERVICES Ordering Prov: WEI CORTÉS Interpretation BILATERAL SCREENING MAMMOGRAM 01/21/2008 Reason [...] mammogram documented in this encounter Care Teams Television Analyzer Relationship Specialty Start Date End Date Jeaneth Ryan MD PCP - General Family Practice 03/30/23 documented as of this encounter
--- OUTSIDE RECORDS SUMMARY | 2024-12-31 09:13 | XMS_ITS | Encounter Summary ---
Author Organization [facility] Address [address] [place] [address] Care Team Providers Care Bobbin Handler Name Role Phone Jeaneth Ryan MD Primary Care Provider Encounter Details Date Type Department Care Team (Late Contact Info) Description 05/14/2000 Outpatient Historical [facility] Internal Medicine [place] [address] [place] [address] Camacho Mcdonald MD [address] [place] [address] Social History Tobacco Use Types Packs/Day Years Used Date Smoking Tobacco: Never Assessed Comments Unknown Sex and Gender Information Value Date Recorded Sex Assigned at Not on file Legal Sex Female 3:52 AM AIR COMPRESSOR OPERATOR Gender Identity Not on file Sexual Orientation Not on file documented as of this encounter Plan of Treatment Upcoming Encounters Date Type Department Care Team (Late Contact Info) Description 01/09/2025 10:00 AM AIR COMPRESSOR OPERATOR Office Visit [facility] Oncology and Hematology - [place] [address] [facility] [address] [place] [address] [place] Duong MD [address] [facility] [address] [place] [address] 03/19/2025 10:45 AM AIR COMPRESSOR OPERATOR Office Visit [facility] Heart and Vascular At [facility] [address] [facility] [address] [place] [address] Camacho Tao MD [address] [facility] [address] [place] [address] 05/13/2025 10:15 AM CDT Office Visit [facility] Oncology and Hematology - [place] [address] [facility] [address] [place] [address] [place] Duong MD [address] [facility] [address] [place] [address] documented as of this encounter Visit Diagnoses Not on filedocumented in this encounter Care Teams Bobbin Handler Relationship Specialty Start Date End Date Jeaneth Ryan MD PCP - General Family Practice 03/30/23 documented as of this encounter
--- OUTSIDE RECORDS SUMMARY | 2024-12-31 09:13 | XMS_ITS | Encounter Summary ---
Author Organization [facility] Address [address] [place] [address] Care Team Providers Care Recycling Collections Driver Name Role Phone Jeaneth Ryan MD Primary Care Provider Encounter Details Date Type Department Care Team (Late Contact Info) Description 03/16/1999 Outpatient Historical [facility] Internal Medicine [place] [address] [place] [address] Camacho Mcdonald MD [address] [place] [address] Social History Tobacco Use Types Packs/Day Years Used Date Smoking Tobacco: Never Assessed Comments Unknown Sex and Gender Information Value Date Recorded Sex Assigned at Not on file Legal Sex Female 3:52 AM MICROARRAY SPECIALIST Gender Identity Not on file Sexual Orientation Not on file documented as of this encounter Plan of Treatment Upcoming Encounters Date Type Department Care Team (Late Contact Info) Description 01/09/2025 10:00 AM MICROARRAY SPECIALIST Office Visit [facility] Oncology and Hematology - [place] [address] [facility] [address] [place] [address] [place] Duong MD [address] [facility] [address] [place] [address] 03/19/2025 10:45 AM MICROARRAY SPECIALIST Office Visit [facility] Heart and Vascular At [facility] [address] [facility] [address] [place] [address] Camacho Tao MD [address] [facility] [address] [place] [address] 05/13/2025 10:15 AM CDT Office Visit [facility] Oncology and Hematology - [place] [address] [facility] [address] [place] [address] Angel Duong MD [address] [facility] [address] [place] [address] documented as of this encounter Visit Diagnoses Not on filedocumented in this encounter Care Teams Recycling Collections Driver Relationship Specialty Start Date End Date Jeaneth Ryan MD PCP - General Family Practice 03/30/23 documented as of this encounter
--- OUTSIDE RECORDS SUMMARY | 2024-12-31 09:13 | XMS_ITS | Encounter Summary ---
Author Organization [facility] Address [address] [place] [address] Care Team Providers Care Log Stacker Operator Name Role Phone Jeaneth Ryan MD Primary Care Provider Encounter Details Date Type Department Care Team (Late st Contact Info) Description 11/06/2019 Chart Note [facility] Radiation Therapy [address] [place] [address] [place] [address] [place] [address] Social History Tobacco Use Types Packs/Day Years Used Date Smoking Tobacco: Never Smokeless Tobacco: Never Alcohol Use Standard Drinks/Week Comments Yes 0 (1 standard drink = 0.6 oz pur e alcohol) 1/6mo Comments No Sex and Gender Information Value Date Recorded Sex Assigned at Not on file Legal Sex Female 3:52 AM LEAD SYSTEMS ARCHITECT Gender Identity Not on file Sexual Orientation [...] st Contact Info) Description 01/09/2025 10:00 AM LEAD SYSTEMS ARCHITECT Office Visit [facility] Oncology and Hematology - [place] [address] [place] [address] Angel Duong MD [address] [facility] [address] [place] [address] 03/19/2025 10:45 AM LEAD SYSTEMS ARCHITECT Office Visit [facility] Heart [facility] At [facility] [address] [place] [address] Camacho Tao MD [address] [facility] [address] [place] [address] 05/13/2025 10:15 AM CDT Office Visit [facility] On[facility] and Hematology - [place] [address] [phone] Angel Duong MD [address] [facility] [address] [place] [address] documented as of this encounter Visit Diagnoses Not on filedocumented in this encounter Care Teams Log Stacker Operator Relationship Specialty Start Date End Date Jeaneth Ryan MD PCP - General Family Practice 03/30/23 documented as of this encounter
--- OUTSIDE RECORDS SUMMARY | 2024-12-31 09:14 | XMS_ITS | Clinical Summary ---
Author Organization [facility] [address] Address [address] [place] [address] Care Team Providers Care Filemaker Developer Name Role Phone Camacho Tao MD Unavailable Angel Duong MD Unavailable [phone] Triny Conley MD Unavailable Padma Goodson NP Primary Care Provider [phone] Allergies No known active allergies Medications carvediloL [...] recommended. Assessment & Plan (05/01/2023 1:20 PM CRYSTALLOGRAPHY TEACHER): Chronic. Suboptimally controlled. Counseled on healthy diet continued exercise effort and weight loss MELI (obstructive sleep apnea) 03/12/2023 Assessment & Plan (06/12/2024 9:11 AM CDT): Pt states using cpap for 8 hours/night 7 nights/wk Pt states less daytime somnolence, feels better when using it. Would recommend the continued use of cpap Following with Dr Conley (sleep med) Assessment & Plan (05/01/2023 1:20 PM CRYSTALLOGRAPHY TEACHER): Recent diagnosis. Has been started on CPAP. She is working with sleep Medicine History of right mastectomy 10/02/2022 Assessment & Plan (10/16/2024 6:34 AM CDT): Patient will continue to have mammograms done at [facility] for now. Next mammogram of left breast scheduled to be done in December. Assessment & Plan (05/01/2023 1:19 PM CRYSTALLOGRAPHY TEACHER): Continue use of prosthesis. Follows with Oncology. She has updated labs ordered by them to monitor. Vitamin D deficiency 10/02/2022 Assessment & Plan (05/01/2023 1:20 PM CRYSTALLOGRAPHY TEACHER): Patient has open order to get updated vitamin-D level to monitor and adjust replacement as needed. She will let us know the results Osteopenia 10/02/2022 Assessment & Plan (05/01/2023 1:20 PM CRYSTALLOGRAPHY TEACHER): Mild on prior bone density. Encouraged healthy diet and lifestyle as well as resistance training. Her oncologist is monitoring this Hypertension 07/02/2020 Assessment & Plan (06/12/2024 9:11 AM CDT): BP normal in office, continuing Lisinopril, Chlorthalidone, Coreg. Pt's renal function reviewed from 04/2024 (pt brought in results from [facility]). Stable. Assessment & Plan (05/01/2023 1:20 PM CRYSTALLOGRAPHY TEACHER): Chronic. HTN controlled. Cont prescription Rx. Low sodium diet (DASH or Mediterranean), exercise, wt loss (if over weight) discussed Ventricular ectopy 03/19/2020 Overview (10/02/2022): 16% of all HBs holter 03/25 3.5% of all HBs holter 09/22 Nl LV fxn echo 03/25 Assessment & Plan (05/01/2023 1:20 PM CRYSTALLOGRAPHY TEACHER): Chronic. Follows with Cardiology. Denies any recent [...] bra Assessment & Plan (05/01/2023 1:20 PM CRYSTALLOGRAPHY TEACHER): Chronic. Uses prosthetic raw. On aromatase inhibitor. Continue care per Oncology. Has labs ordered by her oncologist for monitoring Resolved Problems Problem Noted Date Diagnosed Date Resolved Date Right bundle branch block 03/19/2020 Encounters Date Type Department Care Team Description 12/29/2024 Orders Only [facility] Primary Care at [address] [address] Provider, MD Meir 10/30/2024 Results Follow-Up [address] [place] [address] Jeaneth Cormier, ATTIC FANS MECHANIC Pap, reflex HPV 10/29/2024 9:45 AM CDT Office Visit [facility] Sleep Medicine at [address] [place] [address] Triny Conley MD MELI (obstructive sleep apnea) (Primary Dx); Hypersomnia; Obesity, unspecified class, unspecified obesity type, unspecified whether serious comorbidity present 10/29/2024 Orders Only [facility] [address] [place] [address] [address] [place] [address] Triny Conley MD Obesity, unspecified class, unspecified obesity type, unspecified whether serious comorbidity present (Primary Dx) 10/15/2024 9:15 AM CDT Office Visit [facility] [address] [place] [address] [address] [place] [address] Jeaneth Cormier NP Well woman exam (Primary [...] on file Legal Sex Female 8:20 PM CRYSTALLOGRAPHY TEACHER Gender Identity Not on file Sexual Orientation [...] CDT Respiratory Rate 20 01/24/2024 10:15 AM CRYSTALLOGRAPHY TEACHER Oxygen Saturation 98% 10/29/2024 9:30 AM CDT [...] Vaccine (1 of 2) 11/25/1975 Covid-19 Vaccine (6 - 2024-2 6 season) 2024 03/28/2023, 01/20/2022, [...] Routine (OP Routine) 12/25/2024 2:00 PM CDT PAP, REFLEX HPV Routine 10/15/2024 9:49 AM CDT Well woman exam MAMMOGRAPHY Routine 12/31/2023 3:03 PM CDT from Last 3 Months or Most Recently Relevant to Health Maintenance Results * US Breast Right Limited (12/25/2024 2:00 PM CDT) Anatomical Region Laterality Modality Breast Right Mammography us Historical Provider MD CARDONA MAMMO PROCEDURES Stephanie l Result * Pap, reflex HPV (10/15/2024 9:49 AM CDT) Clinical indication Comment [facility] - 01 Comment: NEGATIVE FOR INTRAEPITHELIAL LESION OR MALIGNANCY. CELLULAR CHANGES ASSOCIATED WITH ATROPHY ARE PRESENT. Specimen adequacy: Comment [facility] - 01 Comment: Satisfactory for evaluation. Endocervical component may not be distinguished in cases of atrophy. Clinician provided ICD10 Comment [facility] - 01 Comment:Z01.419 Performed by Comment [facility] - 01 Comment:Pj Stein Cytol ogist (ASCP) QC reviewed by Comment [...] - 10/20/2024 9:10 AM CDT Performed at: [address] [place] [id number] Can Carrier: Silvia Royal MD, Phone: [phone] Specimen Comment: [id number] Specimen Comment: No. of containers..01 ThinPrep Vial Jeaneth Cormier ATTIC FANS MECHANIC LAB CYTOLOGY ORDERABLES Final Re sult [facility] - 01 * HM MAMMOGRAPHY (12/31/2023 3:03 PM CDT) Historical Provider HEALTH MAINTENANCE Final Result from Last 3 Months or Most Recently Relevant to Health Maintenance Insurance [facility] MEDICARE ADVANTAGE Care Teams Filemaker Developer Relationship Specialty Start Date End Date Padma Goodson ATTIC FANS MECHANIC [address] [facility] [address] [place], [place] [id number] PCP - General Family Medicine 06/12/24 Camacho Tao MD [address] [facility] [address] [place] [address] Referring Physician Cardiovascular Disease 10/02/22 Angel Duong MD [address] [facility] [address] [place] [address] Referring Physician Hematology 10/02/22 Triny Conley MD [address] [place] [address] Consulting Physician Sleep Medicine 05/01/23 [facility] Parking Lot Signaler 06/12/24
--- OUTSIDE RECORDS SUMMARY | 2024-12-31 09:14 | XMS_ITS | Clinical Summary ---
Author Organization [facility] Address [address] [place] [address] Phone Care Team Providers Care Merchandising Stock Associate Name Role Phone Jeaneth Barr MD Primary [...] from the original. Dr. Camacho Tao - Sketcher (HH) Problem Noted Date Diagnosed Date HLD [...] 12/11/2024 4:30 PM CDT Telephone Check Up [facility] Oncology and Hematology - [place] [address] [place] [phone] Angel Duong MD Malignant neoplasm of central portion of right breast (CMS/HCC) (Primary Dx) 12/09/2024 Refill [facility] Heart and Vascular At [address] [place] [address] Camacho Tao MD 12/05/2024 Orders Only [facility] Oncology and Hematology - [place] [address] [place] [address] Angel Duong MD 12/03/2024 Telephone [facility] Oncology and Hematology - [place] [address] [place] [address] Angel Duong MD repeat lab results 12/02/2024 Orders Only [facility] Oncology and Hematology - [place] [address] [place] [address] Angel Duong MD 11/27/2024 1:15 PM CDT Office Visit [facility] Oncology and Hematology - [place] [address] [place] [address] Angel Duong MD Malignant neoplasm of central portion of right breast (CMS/HCC) (Primary Dx) 2024 Orders Only [facility] Oncology and Hematology [facility] [address] [place] [address] Angel Duong MD 11/18/2024 External Device Data STL ABSTRACTION Provider, Abstract 11/04/2024 External Device Data STL ABSTRACTION Provider, Abstract 11/02/2024 Refill [facility] Oncology and Hematology [place] [address] [place] [address] Angel Duong MD Malignant neoplasm of central portion of right breast (CMS/HCC) 10/18/2024 Refill [facility] Heart and Vascular At [address] [place] [address] Camacho Tao MD 10/14/2024 External Device Data [...] on file Legal Sex Female 3:52 AM ATHLETIC COACH Gender Identity Not on file Sexual Orientation [...] st Contact Info) Description 01/09/2025 10:00 AM ATHLETIC COACH Office Visit [facility] Oncology and Hematology - [place] [address] [place] [address] Angel Duong MD [address] [facility] [address] [place] [address] 03/19/2025 10:45 AM ATHLETIC COACH Office Visit [facility] Heart and Vascular At [address] [place] [address] Camacho Tao MD [address] [place] [address] [address] [place] [address] 05/13/2025 10:15 AM CDT Office Visit [facility] Oncology and Hematology [address] [place] [address] [place] [address] [place] [address] [place] [phone] Health Maintenance Due Date Last Done Comments [...] Colorectal Cancer Screening 06/25/2028 OSTEOPOROSIS SCREENING 03/04/2029 4, 11/27/2019, 10/25/2016, Additional history exists RSV VACCINE (60+ or ) (1 - 1-dose 75+ series) 11/25/2031 Medical Devices Implanted Type Area Buttoner Device Identifier Shelf Expiration Date Model / Serial / Lot Log [id number] - Vascular Access Ports - 1 - Port Pwrprt Mri 8fr [id number] Implanted:Qty: 1 on 05/03/[address] [facility] Port Left: Chest Wall CR BARD- ACCESS SYS 10/04/2011 [id number] / [id number] / [id number] Procedures Procedure Name Priority Date/Time Associated Diagnosis [...] W VERTEBRAL FX Routine 03/04/2024 12:14 PM ATHLETIC COACH MAMMO SCREENING UNILATERAL LEFT Routine 12/31/2023 2:36 PM CDT COLONOSCOPY REPORT 06/26/2023 9: 23 AM CDT from Last 3 Months or Most Recently Relevant to Health Maintenance Results * PET BONE IMG W CT SKB MDTH (12/04/2024 10:52 AM CDT) Anatomical Region Laterality Modality Positron Emissio n Tomography (PET) Angel Duong MD PE ORDERABLES Final Result [...] WITH AUTODIFFERENTIAL (11/20/2024 11:49 AM CDT) Blood Result Eric Duong MD HEMATOLOGY ORDERABLES Final Res ult * XR DEXA BONE DENSITY W VERTEBRAL FX (03/04/2024 12:14 PM ATHLETIC COACH) Anatomical Region Laterality Modality Spine Other Result Eric Duong MD DIAGNOSTIC IMAGING ORDERABLES F inal Result * MAMMO SCREENING UNILATERAL LEFT (12/31/2023 2:36 PM CDT) Anatomical Region Laterality Modality Breast Left Mammography Result Eric Duong MD MAMMO ORDERABLES Final Result * COLONOSCOPY REPORT (06/26/2023 9:23 AM CDT) Narrative Procedure Note Claudia Hinkle MD - 06/26/2023 9:23 AM CDT [facility] Endoscopy Patient Name: Palak Marrero [...] Number of Addenda: [phone] ; [place] [address] Claudia Hinkle MD GI PROCEDURE ORDERABLES Final Result from Last 3 Months or Most Recently Relevant to Health Maintenance Insurance RX [facility] [employer] Advance Directives For more information, please contact: [phone] * Full Code (Latest Code Status on [...] 1:17 PM 05/10/2010 5:45 PM Care Teams Merchandising Stock Associate Relationship Specialty Start Date End Date Jeaneth Barr MD PCP - General Family Practice 03/30/23
--- OUTSIDE RECORDS SUMMARY | 2024-12-31 09:14 | XMS_ITS | Encounter Summary ---
Author Organization [facility] Address [address] [place] [address] Care Team Providers Care Flosser Name Role Phone Camacho Tao MD Unavailable Angel Duong MD Unavailable Triny Conley MD Unavailable Padma Goodson NP Primary Care Provider [phone] Encounter Details Date Type Department Care Team (Late st Contact Info) Description 10/30/2024 Results Follow-Up [facility] [address] [place] [address] [address] [place] [address] Jeaneth Cormier NP [address] [place] [address] [address] [address] Pap, reflex HPV Social History [...] on file Legal Sex Female 8:20 PM CHEMIST INTERN Gender Identity Not on file Sexual Orientation Not on file documented as of this encounter Plan of Treatment Not on file documented as of this encounter Visit Diagnoses Not on filedocumented in this encounter Care Teams Flosser Relationship Specialty Start Date End Date Padma Goodson LABOR OPERATOR [address] [facility] [address] [place] [address] PCP - General Family Medicine 06/12/24 Camacho Tao MD [address] [facility] [address] [facility] [address] [place] [address] Referring Physician Cardiovascular Disease 10/02/22 Angel Duong MD [address] [place] [address] Referring Physician Hematology 10/02/22 Triny Conley MD [address] [facility] [address] [place] [address] Consulting Physician Sleep Medicine 05/01/23 [facility] Kettle Hand 06/12/24 documented as of this encounter
--- OUTSIDE RECORDS SUMMARY | 2024-12-31 09:14 | XMS_ITS | Encounter Summary ---
Author Organization [facility] Address [address] [place] [address] Care Team Providers Care Media Coordinator Name Role Phone Jeaneth Ryan MD Primary Care Provider Encounter Details Date Type Department Care Team (Late st Contact Info) Description 12/31/2001 Outpatient Historical HIS MAMM Aura Doss MD [address] [facility] [address] [place] [address] SCREENING MAMM-MAILG NEOPL-OTHER (Primary Dx) Social History Tobacco Use Types Packs/Day Years Used Date Smoking Tobacco: Never Assessed Comments Unknown Sex and Gender Information Value Date Recorded Sex Assigned at Not on file Legal Sex Female 3:52 AM SHUTTLELESS LOOM WEAVER Gender Identity Not on file Sexual Orientation Not on file documented as of this encounter Plan of Treatment Upcoming Encounters Date Type Department Care Team (Late Contact Info) Description 01/09/2025 10:00 AM SHUTTLELESS LOOM WEAVER Office Visit [facility] Oncology and Hematology - [place] [address] [facility] [address] [place] [address] Angel Duong MD [address] [facility] [address] [place] [address] 03/19/2025 10:45 AM SHUTTLELESS LOOM WEAVER Office Visit [facility] Heart and Vascular At [place] [address] [facility] [address] [place] [address] Camacho Tao MD [facility] [address] [facility] [address] [place] [address] 05/13/2025 10:15 AM CDT Office Visit [facility] Oncology and Hematology - [place] [address] [facility] [address] [place] [address] Angel Duong MD [address] [facility] [address] [place] [address] documented as of this encounter Visit Diagnoses Diagnosis Other screening mammogram- Primary documented in this encounter Care Teams Media Coordinator Relationship Specialty Start Date End Date Jeaneth Ryan MD PCP - General Family Practice 03/30/23 documented as of this encounter
--- OUTSIDE RECORDS SUMMARY | 2024-12-31 09:14 | XMS_ITS | Encounter Summary ---
Author Organization [facility] Address [address] [place] [address] Care Team Providers Care Emergency Service Worker Name Role Phone Jeaneth Ryan MD [...] on file Legal Sex Female 3:52 AM BREEDING TECHNICIAN Gender Identity Not on file Sexual Orientation Not on file documented as of this encounter Plan of Treatment Upcoming Encounters Date Type Department Care Team (Late st Contact Info) Description 01/09/2025 10:00 AM BREEDING TECHNICIAN Office Visit [facility] Oncology and Hematology - [place] [address] [facility] [address] [place] [address] Angel Duong MD [address] [facility] [address] [place] [address] 03/19/2025 10:45 AM BREEDING TECHNICIAN Office Visit [facility] Heart and Vascular At [place] [address] [facility] [address] [place] [address] Camacho Tao MD [facility] [address] [facility] [address] [place] [address] 05/13/2025 10:15 AM CDT Office Visit [facility] Oncology and Hematology - [place] [address] [facility] [address] [place] [address] Angel Duong MD [address] [facility] [address] [place] [address] documented as of this encounter Visit Diagnoses Diagnosis Other screening mammogram- Primary documented in this encounter Care Teams Emergency Service Worker Relationship Specialty Start Date End Date Jeaneth Ryan MD PCP - General Family Practice 03/30/23 documented as of this encounter
--- OUTSIDE RECORDS SUMMARY | 2024-12-31 09:14 | XMS_ITS ---
Author Organization [facility] Address [address] [place] [address] Phone Care Team Providers Care Animal Care Specialist Name Role Phone Jeaneth Ryan MD Primary Care Provider Active Problems Patient Care Coordination No te Formatting of this note migh t be different from the original. Dr. Camacho Tao - Opinion Polls Survey Worker (HH) Problem Noted Date Diagnosed Date HLD [...]
== END 2024-12-31 08:45 | disposition home or self-care (01) ==
LOC: ANHFOHIMG 08:45
PROVIDERS: PCP Nurse Practitioner Family; Visit Provider Internal Medicine Hematology & Oncology
DX: Z12.31 Encounter for screening mammogram for malignant neoplasm of breast (principal)
CPT/HCPCS: 77063; 77067

== ENCOUNTER 2025-01-06 11:12 | Outpatient (CLI) | payer MEDICARE, SELFPAY ==
--- NOTE | ~2025-01-06 | MR_ITS ---
MR breast BI wo/w con [id number] female with prior history of right breast cancer treated with right mastectomy (2010 and 2019) recently diagnosed with recurrent breast cancer in the right mastectomy bed on ultrasound-guided core needle biopsy completed on 12/25/2024. She presents for evaluation of extent of disease. Prior PET scan completed on 12/04/2024 showed the known biopsy-proven cancer in the mastectomy bed and an additional small focus of moderate uptake in the subcutaneous tissue in the lateral right supraclavicular region immediately underlying an invagination of the skin surface. TECHNIQUE: MRI of the breasts perform using standard protocol pre-and post IV contrast with the following sequences: Axial T2 STIR, axial T1, axial vibrant T1 with fat suppression precontrast and multiphasic postcontrast. 20 cc MultiHance administered intravenously. COMPARISON: Mammogram and ultrasound dated 12/31/2024 and 12/25/2024. FINDINGS: There is Fatty fibroglandular tissue that demonstrates Mild and is Not applicable. Right breast: Postsurgical changes reflecting mastectomy. There is an enhancing mass the measure 3.7 x 1.4 cm containing biopsy clip artifact in the central mastectomy bed centered to the overlying skin and extends posteriorly in between the ribs into the intercostal space. This lesion correlates to the known biopsy proven recurrent malignant lesion. There is no MRI abnormality that correlates to the additional focus of moderate uptake in the subcutaneous tissue in the lateral right supraclavicular region. No evidence of signal abnormalities in the axilla or internal mammary node distributions. LEFT BREAST: No signal abnormalities on precontrast sequences. There is minimal background parenchymal enhancement. No enhancing lesions following contrast administration. No areas of enhancement meeting threshold criteria on CAD analysis. The nipple areolar complex is normal in appearance. No evidence of signal abnormalities in the axillary or internal mammary node distributions.] IMPRESSION: 1: Right breast: Known biopsy-proven recurrent breast malignancy correlates to a 3.7 cm enhancing mass in the mastectomy bed with chest wall involvement and tethered to the overlying skin. 2. No MRI abnormality correlates to the second area of concern on the PET scan. 3. Left breast: Negative. No evidence of malignancy. 4. The chest wall and axillary portion of the examination are unremarkable. RECOMMENDATION: Continue appropriate medical oncology and surgical oncology management. BI-RADS 6, BIOPSY PROVEN MALIGNANCY Reviewed, dictated and finalized at location B. NEYMAN WELDER
--- OUTSIDE RECORDS SUMMARY | 2025-01-06 13:39 | XMS_ITS | Encounter Summary ---
Author Organization [facility] Address [address] [place] [address] Care Team Providers Care Live Truck Technician Name Role Phone Camacho Tao MD Unavailable Angel Duong MD Unavailable [phone] Triny Conley MD Unavailable Padma Goodson NP Primary Care Provider [phone] Reason for Referral * Diagnostic Imaging (Routine) - Closed Specialty Diagnoses / Procedures Referred By Contac t Referred To Contact Procedures Screening Mammogram 2D Left Meir Meek MD [address] [place] [address] Phone: tel: Referral ID Status Reason Start Date Expiration Date Visits Re quested Visits Authorized [id number] Closed 01/05/2025 02/04/2026 1 1 [facility] Encounter Details Date Type Department Care Team (Late st Contact Info) Description 01/05/2025 Orders Only [facility] Primary Care at [address] [address] Meir Meek MD [address] [place] [address] Social History Tobacco Use Types [...] on file Legal Sex Female 8:20 PM PROFESSOR OF FRENCH Gender Identity Not on file Sexual Orientation Not on file documented as of this encounter Plan of Treatment Not on file documented as of this encounter Procedures Procedure Name Priority Date/Time Associated Diagnosis Comments SCREENING MAMMOGRAM 2D LEFT Schedule Routine, Read Routine (OP Routine) 12/31/2024 2:46 PM CDT documented in this encounter Results * Screening Mammogram 2D Left (12/31/2024 2:46 PM CDT) Anatomical Region Laterality Modality Breast Left Mammography us Historical Provider MD CARDONA MAMMO PROCEDURES Stephanie l Result documented in this encounter Visit Diagnoses Not on filedocumented in this encounter Care Teams Live Truck Technician Relationship Specialty Start Date End Date Padma Goodson NP [address] [place] [address] PCP - General Family Medicine 06/12/24 Camacho Tao MD [address] [place] [address] Referring Physician Cardiovascular Disease 10/02/22 Angel Duong MD [address] [facility] [address] [place] [address] Referring Physician Hematology 10/02/22 Triny Conley MD [address] [place] [address] [address] [place] [address] Consulting Physician Sleep Medicine 05/01/23 [facility] Nurse Assessor 06/12/24 documented as of this encounter
--- OUTSIDE RECORDS SUMMARY | 2025-01-06 13:39 | XMS_ITS | Encounter Summary ---
Author Organization [facility] Address [address] [place] [address] Care Team Providers Care Crystal Flat Grinder Name Role Phone Jeaneth Ryan MD Primary Care Provider Encounter Details Date Type Department Care Team (Late st Contact Info) Description 11/06/2019 Chart Note [facility] Radiation Therapy [address] [place] [address] [place] [address] [place] [address] Social History Tobacco Use Types Packs/Day Years Used Date Smoking Tobacco: Never Smokeless Tobacco: Never Alcohol Use Standard Drinks/Week Comments Yes 0 (1 standard drink = 0.6 oz pur e alcohol) 1/6mo Comments No Sex and Gender Information Value Date Recorded Sex Assigned at Not on file Legal Sex Female 3:[address] INSTRUCTOR Gender Identity Not on file Sexual Orientation [...] st Contact Info) Description 01/09/2025 10:[address] INSTRUCTOR Office Visit [facility] Oncology and Hematology - [place] [address] [place] [address] Angel Duong MD [address] [facility] [address] [place] [address] 03/19/2025 10:[address] INSTRUCTOR Office Visit [facility] Heart and Vascular At [facility] [address] [place] [address] Camacho Tao MD [address] [facility] [address] [place] [address] 05/13/2025 10:15 AM CDT Office Visit [facility] Oncology and Hematology - Ryan [address] [phone] Angel Duong MD [address] [facility] [address] [place] [address] documented as of this encounter Visit Diagnoses Not on filedocumented in this encounter Care Teams Crystal Flat Grinder Relationship Specialty Start Date End Date Jeaneth Ryan MD PCP - General Family Practice 03/30/23 documented as of this encounter
--- OUTSIDE RECORDS SUMMARY | 2025-01-06 13:39 | XMS_ITS | Encounter Summary ---
Author Organization [facility] Address [address] [place] [address] Care Team Providers Care Restaurant Kitchen And Service Manager Name Role Phone Jeaneth Ryan MD [...] on file Legal Sex Female 3:52 AM PILOT Gender Identity Not on file Sexual Orientation Not on file documented as of this encounter Plan of Treatment Upcoming Encounters Date Type Department Care Team (Late st Contact Info) Description 01/09/2025 10:00 AM PILOT Office Visit [facility] Oncology and Hematology - Ryan [address] [place] [address] [place] [address] [place] [phone] 03/19/2025 10:45 AM PILOT Office Visit [facility] Heart and Vascular At [facility] [address] [facility] [address] [place] [address] Camacho Tao MD [facility] [address] [facility] [address] [place] [address] 05/13/2025 10:15 AM CDT Office Visit [facility] Oncology and Hematology - [place] [address] [place] [address] Angel Duong MD [address] [facility] [address] [place] [address] documented as of this encounter Procedures Procedure Name Priority Date/Time Associated Diagnosis Comments MAMMO SCREENING BILAT Routine 01/21/2008 2:38 PM PILOT documented in this encounter Results * MAMMO SCREENING BILAT (01/21/2008 2:38 PM PILOT) Anatomical Region Laterality Modality Breast Bilateral Other 01/21/2008 2:38 PM PILOT Narrative 01/22/2008 10:26 AM PILOT [address] [address] Admit Date: 01/21/2008 ROBERTH MARRERONDA Sex: F Admit Prov: DOCTOR, WEI O Date: 1955 Primary Care Prov: ECHONAYE Flowers CMRN: [id number] Room: [facility] SSN: [id number] IMAGING SERVICES Ordering Prov: WEI CORTÉS Accession Number: [id number] Interpretation BILATERAL SCREENING MAMMOGRAM 01/21/2008 Reason for [...] Procedure Note Pool Mederos MD - 01/22/[address] [address] Admit Date: 01/21/2008 PALAK MARRERO Sex: F Admit Prov: DOCTOR NOT O Date: 1955 Primary Care Prov: NAYE DODGE CMRN: [id number] Room: [facility] SSN: [id number] IMAGING SERVICES Ordering Prov: WEI CORTÉS Interpretation [...] mammogram documented in this encounter Care Teams Restaurant Kitchen And Service Manager Relationship Specialty Start Date End Date Jeaneth Ryan MD PCP - General Family Practice 03/30/23 documented as of this encounter
--- OUTSIDE RECORDS SUMMARY | 2025-01-06 13:39 | XMS_ITS | Encounter Summary ---
Author Organization [facility] Address [address] [place] [address] Care Team Providers Care Handkerchief Maker Name Role Phone Jeaneth Ryan MD Primary Care Provider Encounter Details Date Type Department Care Team (Late st Contact Info) Description 12/29/2003 Outpatient Historical [facility] Aura Doss MD [address] [facility] [address] [place] [address] SCREENING MAMM-MAILG NEOPL-OTHER (Primary Dx) Social History Tobacco Use Types Packs/Day Years Used Date Smoking Tobacco: Never Assessed Comments Unknown Sex and Gender Information Value Date Recorded Sex Assigned at Not on file Legal Sex Female 3:52 AM RAILROAD YARD WORKER Gender Identity Not on file Sexual Orientation Not on file documented as of this encounter Plan of Treatment Upcoming Encounters Date Type Department Care Team (Late Contact Info) Description 01/09/2025 10:00 AM RAILROAD YARD WORKER Office Visit [facility] Oncology and Hematology - [place] [address] [facility] [address] [place] [address] Angel Duong MD [address] [facility] [address] [place] [address] 03/19/2025 10:45 AM RAILROAD YARD WORKER Office Visit [facility] Heart and Vascular At [place] [address] [facility] [address] [place] [address] Camacho Tao MD [facility] [address] [facility] [address] [place] [address] 05/13/2025 10:15 AM CDT Office Visit [facility] Oncology and Hematology - [place] [address] [facility] [address] [place] [address] Angel Duong MD [address] [facility] [address] [place] [address] documented as of this encounter Visit Diagnoses Diagnosis Other screening mammogram- Primary documented in this encounter Care Teams Handkerchief Maker Relationship Specialty Start Date End Date Jeaneth Ryan MD PCP - General Family Practice 03/30/23 documented as of this encounter
--- OUTSIDE RECORDS SUMMARY | 2025-01-06 13:39 | XMS_ITS | Encounter Summary ---
Author Organization [facility] Address [address] [place] [address] Care Team Providers Care Cup Trimming Machine Operator Name Role Phone Jeaneth Ryan MD Primary Care Provider Encounter Details Date Type Department Care Team (Late st Contact Info) Description 01/04/2005 Outpatient Historical [facility] M[facility] Aura Doss MD [address] [facility] [address] [place] [address] SCREENING MAMM-MAILG NEOPL NEC (Primary Dx) Social History Tobacco Use Types Packs/Day Years Used Date Smoking Tobacco: Never Assessed Comments Unknown Sex and Gender Information Value Date Recorded Sex Assigned at Not on file Legal Sex Female 3:52 AM BOILER PLANT WORKER Gender Identity Not on file Sexual Orientation Not on file documented as of this encounter Plan of Treatment Upcoming Encounters Date Type Department Care Team (Late st Contact Info) Description 01/09/2025 10:00 AM BOILER PLANT WORKER Office Visit [facility] Oncology and Hematology - [place] [address] [place] [address] [address] [place] [address] Angel Duong MD [address] [facility] [address] [place] [address] 03/19/2025 10:45 AM BOILER PLANT WORKER Office Visit [facility] Heart and Vascular At [place] [address] [facility] [address] [place] [address] Camacho Tao MD [facility] [address] [facility] [address] [place] [address] 05/13/2025 10:15 AM CDT Office Visit [facility] Oncology and Hematology - [place] [address] [facility] [address] [place] [address] Angel Duong MD [address] [facility] [address] [place] [address] documented as of this encounter Visit Diagnoses Diagnosis Other screening mammogram- Primary documented in this encounter Care Teams Cup Trimming Machine Operator Relationship Specialty Start Date End Date Jeaneth Ryan MD PCP - General Family Practice 03/30/23 documented as of this encounter
--- OUTSIDE RECORDS SUMMARY | 2025-01-06 13:39 | XMS_ITS | Encounter Summary ---
Author Organization [facility] Address [address] [place] [address] Care Team Providers Care Senior It Security Analyst Name Role Phone Jeaneth Ryan MD [...] on file Legal Sex Female 3:52 AM SALESPERSON USED CARS Gender Identity Not on file Sexual Orientation Not on file documented as of this encounter Plan of Treatment Upcoming Encounters Date Type Department Care Team (Late st Contact Info) Description 01/09/2025 10:00 AM SALESPERSON USED CARS Office Visit [facility] Oncology and Hematology - [place] [address] [facility] [address] [place] [phone] Angel Duong MD [address] [facility] [address] [place] [address] 03/19/2025 10:45 AM SALESPERSON USED CARS Office Visit [facility]3] Heart and Vascular At [place] [address] [facility] [address] [place] [address] Camacho Tao MD [facility] [address] [facility] [address] [place] [address] 05/13/2025 10:15 AM CDT Office Visit [facility]3] Oncology and Hematology - [place] [address] [facility] [address] [place] [address] Angel Duong MD [address] [facility] [address] [place] [address] documented as of this encounter Visit Diagnoses Diagnosis Other screening mammogram- Primary documented in this encounter Care Teams Senior It Security Analyst Relationship Specialty Start Date End Date Jeaneth Ryan MD PCP - General Family Practice 03/30/23 documented as of this encounter
--- OUTSIDE RECORDS SUMMARY | 2025-01-06 13:39 | XMS_ITS | Encounter Summary ---
Author Organization [facility] Address [address] [place] [address] Care Team Providers Care Chemical Weigher Name Role Phone Jeaneth Ryan MD Primary Care Provider Encounter Details Date Type Department Care Team (Late st Contact Info) Description 12/31/2001 Outpatient Historical HIS MAMM Aura Doss MD [address] [facility] [address] [place] [address] SCREENING MAMM-MAILG NEOPL-OTHER (Primary Dx) Social History Tobacco Use Types Packs/Day Years Used Date Smoking Tobacco: Never Assessed Comments Unknown Sex and Gender Information Value Date Recorded Sex Assigned at Not on file Legal Sex Female 3:52 AM DESTATICIZER FEEDER Gender Identity Not on file Sexual Orientation Not on file documented as of this encounter Plan of Treatment Upcoming Encounters Date Type Department Care Team (Late Contact Info) Description 01/09/2025 10:00 AM DESTATICIZER FEEDER Office Visit [facility] Oncology and Hematology - [place] [address] [facility] [address] [place] [address] Angel Duong MD [address] [facility] [address] [place] [address] 03/19/2025 10:45 AM DESTATICIZER FEEDER Office Visit [facility] Heart and Vascular At [place] [address] [facility] [address] [place] [address] Camacho Tao MD [facility] [address] [facility] [address] [place] [address] 05/13/2025 10:15 AM CDT Office Visit [facility] Oncology and Hematology - [place] [address] [facility] [address] [place] [address] Angel Duong MD [address] [facility] [address] [place] [address] documented as of this encounter Visit Diagnoses Diagnosis Other screening mammogram- Primary documented in this encounter Care Teams Chemical Weigher Relationship Specialty Start Date End Date Jeaneth Ryan MD PCP - General Family Practice 03/30/23 documented as of this encounter
--- OUTSIDE RECORDS SUMMARY | 2025-01-06 13:39 | XMS_ITS | Encounter Summary ---
Author Organization [facility] Address [address] [place] [address] Care Team Providers Care Mold Sander Name Role Phone Jeaneth Ryan MD Primary Care Provider Encounter Details Date Type Department Care Team (Late st Contact Info) Description 01/04/2006 Outpatient Historical HIS MAMM VAN Aura Ngo MD [address] [facility] [address] [place], [place] [id number] Other Screening Mammogram (Primary Dx) Social History Tobacco Use Types Packs/Day Years Used Date Smoking Tobacco: Never Assessed Comments Unknown Sex and Gender Information Value Date Recorded Sex Assigned at Not on file Legal Sex Female 3:52 AM CUSTOMER SUPPLY CHAIN ANALYST Gender Identity Not on file Sexual Orientation Not on file documented as of this encounter Plan of Treatment Upcoming Encounters Date Type Department Care Team (Late st Contact Info) Description 01/09/2025 10:00 AM CUSTOMER SUPPLY CHAIN ANALYST Office Visit [facility] Oncology and Hematology - [place] [address] [place] [address] [address] [place] [address] Angel Duong MD [address] [facility] [address] [place] [address] 03/19/2025 10:45 AM CUSTOMER SUPPLY CHAIN ANALYST Office Visit [facility] Heart and Vascular At [facility] [address] [facility] [address] [place] [address] Camacho Tao MD [facility] [address] [facility] [address] [place], [place] [address] 05/13/2025 10:15 AM CDT Office Visit [facility] Oncology and Hematology - [place] [address] [facility] [address] [place] [address] Angel Duong MD [address] [facility] [address] [place] [address] documented as of this encounter Visit Diagnoses Diagnosis Other screening mammogram- Primary documented in this encounter Care Teams Mold Sander Relationship Specialty Start Date End Date Jeaneth Ryan MD PCP - General Family Practice 03/30/23 documented as of this encounter
--- OUTSIDE RECORDS SUMMARY | 2025-01-06 13:39 | XMS_ITS | Encounter Summary ---
Author Organization [facility] Address [address] [place] [address] Care Team Providers Care Lining Maker Name Role Phone Jeaneth Ryan MD Primary Care Provider Encounter Details Date Type Department Care Team (Late Contact Info) Description 03/16/1999 Outpatient Historical [facility] Internal Medicine [address] [address] [place] [address] Camacho Mcdonald MD [address] [place] [address] Social History Tobacco Use Types Packs/Day Years Used Date Smoking Tobacco: Never Assessed Comments Unknown Sex and Gender Information Value Date Recorded Sex Assigned at Not on file Legal Sex Female 3:52 AM PHYSICIAN ASSISTANT CERTIFIED Gender Identity Not on file Sexual Orientation Not on file documented as of this encounter Plan of Treatment Upcoming Encounters Date Type Department Care Team (Late Contact Info) Description 01/09/2025 10:00 AM PHYSICIAN ASSISTANT CERTIFIED Office Visit [facility] Oncology and Hematology - [place] [address] [facility] [address] [place] [address] Angel Duong MD [address] [facility] [address] [place] [address] 03/19/2025 10:45 AM PHYSICIAN ASSISTANT CERTIFIED Office Visit [facility] Heart and Vascular At [facility] [address] [facility] [address] [place] [address] Camacho Tao MD [address] [place] [address] 05/13/2025 10:15 AM CDT Office Visit [facility] Oncology and Hematology - [place] [address] [facility] [address] [place] [address] Angel Duong MD [address] [facility] [address] [place] [address] documented as of this encounter Visit Diagnoses Not on filedocumented in this encounter Care Teams Lining Maker Relationship Specialty Start Date End Date Jeaneth Ryan MD PCP - General Family Practice 03/30/23 documented as of this encounter
--- OUTSIDE RECORDS SUMMARY | 2025-01-06 13:39 | XMS_ITS | Encounter Summary ---
Author Organization [facility] Address [address] [place] [address] Care Team Providers Care Civil Preparedness Training Officer Name Role Phone Jeaneth Ryan MD Primary Care Provider Encounter Details Date Type Department Care Team ([facility] Contact Info) Description 01/01/2025 Orders Only [facility] Oncology and Hematology - [place] [address] [place] [address] Angel Duong MD [address] [place] [address] Social History Tobacco Use Types [...] on file Legal Sex Female 3:52 AM OBEDIENCE TRAINER Gender Identity Not on file Sexual Orientation Not on file Occupation Industry Job Start Date Job End Date Not on file Not on file Not on file Not on file documented as of this encounter Plan of Treatment Upcoming Encounters Date Type Department Care Team (Late Contact Info) Description 01/09/2025 10:00 AM OBEDIENCE TRAINER Office Visit [facility] Oncology and Hematology - [place] [address] [place] [address] Angel Duong MD [address] [facility] [address] [place] [address] 03/19/2025 10:45 AM OBEDIENCE TRAINER Office Visit [facility] Heart and Vascular At [facility] [address] [address] [place] [address] Camacho Tao MD [address] [facility] [address] [place] [address] 05/13/2025 10:15 AM CDT Office Visit [facility] Oncology and Hematology - [place] [address] [facility] [address] [place] [address] Angel Duong MD [address] [facility] [address] [place] [address] documented as of this encounter Procedures Procedure Name Priority Date/Time Associated Diagnosis Comments MAMMO SCREENING UNILATERAL LEFT Routine 12/31/2024 10:58 AM CDT documented in this encounter Results * MAMMO SCREENING UNILATERAL LEFT (12/31/2024 10:58 AM CDT) Anatomical Region Laterality Modality Breast Left Mammography Angel Duong MD MAMMO ORDERABLES Final Result documented in this encounter Visit Diagnoses Not on filedocumented in this encounter Care Teams Civil Preparedness Training Officer Relationship Specialty Start Date End Date Jeaneth Ryan MD PCP - General Family Practice 03/30/23 documented as of this encounter
--- OUTSIDE RECORDS SUMMARY | 2025-01-06 13:39 | XMS_ITS | Encounter Summary ---
Author Organization [facility] Address [address] [place] [address] Care Team Providers Care Call Circuit Worker Name Role Phone Jeaneth Ryan MD Primary Care Provider Encounter Details Date Type Department Care Team (Late Contact Info) Description 03/26/1998 Outpatient Historical [facility] Internal Medicine [place] [address] [place] [address] Camacho Mcdonald MD [address] [place] [address] Social History Tobacco Use Types Packs/Day Years Used Date Smoking Tobacco: Never Assessed Comments Unknown Sex and Gender Information Value Date Recorded Sex Assigned at Not on file Legal Sex Female 3:52 AM SEARCH DEVELOPER Gender Identity Not on file Sexual Orientation Not on file documented as of this encounter Plan of Treatment Upcoming Encounters Date Type Department Care Team (Late Contact Info) Description 01/09/2025 10:00 AM SEARCH DEVELOPER Office Visit [facility] Oncology and Hematology - [place] [address] [facility] [address] [place] [address] Angel Duong MD [address] [facility] [address] [place] [address] 03/19/2025 10:45 AM SEARCH DEVELOPER Office Visit [facility] Heart and Vascular At [facility] [address] [facility] [address] [place] [address] Camacho Tao MD [address] [facility] [address] [place] [address] 05/13/2025 10:15 AM CDT Office Visit [facility] Oncology and Hematology - [place] [address] [facility] [address] [place] [address] Angel Duong MD [address] [facility] [address] [place] [address] documented as of this encounter Visit Diagnoses Not on filedocumented in this encounter Care Teams Call Circuit Worker Relationship Specialty Start Date End Date Jeaneth Ryan MD PCP - General Family Practice 03/30/23 documented as of this encounter
--- OUTSIDE RECORDS SUMMARY | 2025-01-06 13:39 | XMS_ITS | Encounter Summary ---
Author Organization [facility] Address [address] [place] [address] Care Team Providers Care Underground Utility Locator Name Role Phone Jeaneth Ryan MD Primary Care Provider Encounter Details Date Type Department Care Team (Late Contact Info) Description 05/14/2000 Outpatient Historical [facility] Internal Medicine [address] [address] [place] [address] Camacho Mcdonald MD [address] [place] [address] Social History Tobacco Use Types Packs/Day Years Used Date Smoking Tobacco: Never Assessed Comments Unknown Sex and Gender Information Value Date Recorded Sex Assigned at Not on file Legal Sex Female 3:52 AM SPOOL WINDER Gender Identity Not on file Sexual Orientation Not on file documented as of this encounter Plan of Treatment Upcoming Encounters Date Type Department Care Team (Late Contact Info) Description 01/09/2025 10:00 AM SPOOL WINDER Office Visit [facility] Oncology and Hematology - [place] [address] [facility] [address] [place] [address] Angel Duong MD [address] [facility] [address] [place] [address] 03/19/2025 10:45 AM SPOOL WINDER Office Visit [facility] Heart and Vascular At [facility] [address] [facility] [address] [place] [address] Camacho Tao MD [address] [place] [address] 05/13/2025 10:15 AM CDT Office Visit [facility] Oncology and Hematology - [place] [address] [facility] [address] [place] [address] Angel Duong MD [address] [facility] [address] [place] [address] documented as of this encounter Visit Diagnoses Not on filedocumented in this encounter Care Teams Underground Utility Locator Relationship Specialty Start Date End Date Jeaneth Ryan MD PCP - General Family Practice 03/30/23 documented as of this encounter
--- OUTSIDE RECORDS SUMMARY | 2025-01-06 13:39 | XMS_ITS | Encounter Summary ---
Author Organization [facility] Address [address] [place] [address] Care Team Providers Care Ceramic Artist Name Role Phone Jeaneth Ryan MD Primary Care Provider Encounter Details Date Type Department Care Team (Late st Contact Info) Description 01/06/2025 Chart Note [facility] Breast Surgery Judit Laguerre [address] [place] [address] Michelle Rueda Social History Tobacco Use Types Packs/Day Years [...] on file Legal Sex Female 3:52 AM AEROPHYSICS ENGINEER Gender Identity Not on file Sexual Orientation Not on file Occupation Industry Job Start Date Job End Date Not on file Not on file Not on file Not on file documented as of this encounter Progress Notes * Michelle Rueda - 01/06/2025 11:48 AM CST We received a referral from [facility] to schedule an appointment with Dr. Marr. I left a message on her recorder to call us back at [phone] and we will get her on the her schedule. PHYSICS ENGINEER documented in this encounter Plan of Treatment Upcoming Encounters Date Type Department Care Team (Late st Contact Info) Description 01/09/2025 10:00 AM AEROPHYSICS ENGINEER Office Visit [facility] Oncology and Hematology - [place] [address] [place] [address] Angel Duong MD [address] [facility] [employer] [address] [place] [address] 03/19/2025 10:45 AM AEROPHYSICS ENGINEER Office Visit [facility] Heart and Vascular At [facility] [address] [facility] [address] [place] [address] Camacho Tao MD [address] [place] [address] 05/13/2025 10:15 AM CDT Office Visit [facility] Oncology and Hematology - Ryan [address] [place] [phone] Angel Duong MD [address] [facility] [address] [place] [address] documented as of this encounter Visit Diagnoses Not on filedocumented in this encounter Care Teams Ceramic Artist Relationship Specialty Start Date End Date Jeaneth Ryan MD PCP - General Family Practice 03/30/23 documented as of this encounter
--- OUTSIDE RECORDS SUMMARY | 2025-01-06 13:39 | XMS_ITS | Encounter Summary ---
Author Organization [facility] Address [address] [place] [address] Care Team Providers Care Sandwich Wrapper Name Role Phone Jeaneth Ryan MD Primary [...] on file Legal Sex Female 3:52 AM NURSE SEXUAL ASSAULT Gender Identity Not on file Sexual Orientation Not on file documented as of this encounter Plan of Treatment Upcoming Encounters Date Type Department Care Team (Late st Contact Info) Description 01/09/2025 10:00 AM NURSE SEXUAL ASSAULT Office Visit [facility] Oncology and Hematology - [place] [address] [phone] Angel Duong MD [address] [facility] [address] [place] [phone] 03/19/2025 10:45 AM NURSE SEXUAL ASSAULT Office Visit [facility] Heart and Vascular At [place] [address] [facility] [address] [place] [phone] Camacho Tao MD [facility] [address] [facility] [address] [place] [address] 05/13/2025 10:15 AM CDT Office Visit [facility] Oncology and Hematology - Ryan [address] [place] [address] Angel Duong MD [address] [facility] [address] [place] [address] documented as of this encounter Visit Diagnoses Diagnosis Other screening mammogram- Primary documented in this encounter Care Teams Sandwich Wrapper Relationship Specialty Start Date End Date Jeaneth Ryan MD PCP - General Family Practice 03/30/23 documented as of this encounter
--- OUTSIDE RECORDS SUMMARY | 2025-01-06 13:39 | XMS_ITS | Clinical Summary ---
Author Organization [facility] [address] Address [address] [place] [address] Care Team Providers Care Family Practice Nurse Practitioner Name Role Phone Camacho Tao MD Unavailable Angel Duong MD Unavailable [phone] Triny Conley MD Unavailable Padma Goodson NP Primary Care Provider [phone] Allergies No known active allergies Medications carvediloL [...] recommended. Assessment & Plan (05/01/2023 1:20 PM CORROSION PREVENTION METAL SPRAYER): Chronic. Suboptimally controlled. Counseled on healthy diet continued exercise effort and weight loss MELI (obstructive sleep apnea) 03/12/2023 Assessment & Plan (06/12/2024 9:11 AM CDT): Pt states using cpap for 8 hours/night 7 nights/wk Pt states less daytime somnolence, feels better when using it. Would recommend the continued use of cpap Following with Dr Conley (sleep med) Assessment & Plan (05/01/2023 1:20 PM CORROSION PREVENTION METAL SPRAYER): Recent diagnosis. Has been started on CPAP. She is working with sleep Medicine History of right mastectomy 10/02/2022 Assessment & Plan (10/16/2024 6:34 AM CDT): Patient will continue to have mammograms done at [place] for now. Next mammogram of left breast scheduled to be done in December. Assessment & Plan (05/01/2023 1:19 PM CORROSION PREVENTION METAL SPRAYER): Continue use of prosthesis. Follows with Oncology. She has updated labs ordered by them to monitor. Vitamin D deficiency 10/02/2022 Assessment & Plan (05/01/2023 1:20 PM CORROSION PREVENTION METAL SPRAYER): Patient has open order to get updated vitamin-D level to monitor and adjust replacement as needed. She will let us know the results Osteopenia 10/02/2022 Assessment & Plan (05/01/2023 1:20 PM CORROSION PREVENTION METAL SPRAYER): Mild on prior bone density. Encouraged healthy diet and lifestyle as well as resistance training. Her oncologist is monitoring this Hypertension 07/02/2020 Assessment & Plan (06/12/2024 9:11 AM CDT): BP normal in office, continuing Lisinopril, Chlorthalidone, Coreg. Pt's renal function reviewed from 04/2024 (pt brought in results from [facility]). Stable. Assessment & Plan (05/01/2023 1:20 PM CORROSION PREVENTION METAL SPRAYER): Chronic. HTN controlled. Cont prescription Rx. Low sodium diet (DASH or Mediterranean), exercise, wt loss (if over weight) discussed Ventricular ectopy 03/19/2020 Overview (10/02/2022): 16% of all HBs holter 03/25 3.5% of all HBs holter 09/22 Nl LV fxn echo 03/25 Assessment & Plan (05/01/2023 1:20 PM CORROSION PREVENTION METAL SPRAYER): Chronic. Follows with Cardiology. Denies any recent [...] bra Assessment & Plan (05/01/2023 1:20 PM CORROSION PREVENTION METAL SPRAYER): Chronic. Uses prosthetic raw. On aromatase inhibitor. Continue care per Oncology. Has labs ordered by her oncologist for monitoring Resolved Problems Problem Noted Date Diagnosed Date Resolved Date Right bundle branch block 03/19/2020 Encounters Date Type Department Care Team Description 01/05/2025 Orders Only [facility] Primary Care at [address] [phone] Meir Meek MD 12/31/2024 Orders Only [facility] Primary Care at [address] [phone] Meir Meek MD 12/29/2024 Orders Only [facility] Primary Care at [address] [phone] Meir Meek MD 10/30/2024 Results Follow-Up [address] [place] [address] Jeaneth Cormier NP Pap, reflex HPV 10/29/2024 9:45 AM CDT Office Visit [facility] Sleep Medicine at [address] [place] [address] Triny Conley MD MELI (obstructive sleep apnea) (Primary Dx); Hypersomnia; Obesity, unspecified class, unspecified obesity type, unspecified whether serious comorbidity present 10/29/2024 Orders Only [facility] Neurology [address] [place] [address] Triny Conley MD Obesity, unspecified class, unspecified obesity type, unspecified whether serious comorbidity present (Primary Dx) 10/15/2024 9:15 AM CDT Office Visit [address] [place] [address] Jeaneth Cormier NP Well woman exam (Primary [...] [place] Esophageal cancer Father Anal Cancer Mother Maryarsh [place] Anemia Mother Mary [place] Arthritis Mother [...] on file Legal Sex Female 8:20 PM CORROSION PREVENTION METAL SPRAYER Gender Identity Not on file Sexual Orientation [...] CDT Respiratory Rate 20 01/24/2024 10:15 AM CORROSION PREVENTION METAL SPRAYER Oxygen Saturation 98% 10/29/2024 9:30 AM CDT [...] Additional history exists Influenza Vaccine (#1) 2024 Fall Risk Assessment 06/12/2025 06/12/2024, 05/01/2023, 10/02/2022 Depression Screening 10/15/2025 10/15/2024, 06/12/2024, 05/01/2023, Additional history exists Well Visit 65+ 10/15/2025 10/15/2024, 04/06, 04/05/2023 Breast Cancer Screening-Mammogram 12/31/2025 12/31/2024, 12/31/2023, 12/28/2022 Osteoporosis Screening-Bone Density Scan 03/04/2026 03/04/2024, 12/03/2021, 11/27/2019, Additional history exists Cervical Cancer Screening Discontinued 10/15/2024, 03/2023 Procedures Procedure Name Priority Date/Time Associated Diagnosis Comments SCREENING MAMMOGRAM 2D LEFT Schedule Routine, Read Routine (OP Routine) 12/31/2024 2:46 PM CDT US BREAST RIGHT LIMITED Schedule Routine, Read Routine (OP Routine) 12/25/2024 2:00 PM CDT US BREAST RIGHT LIMITED Schedule Routine, Read Routine (OP Routine) 12/25/2024 12:20 PM CDT PAP, REFLEX HPV Routine 10/15/2024 9:49 AM CDT Well woman exam from Last 3 Months Results * Screening Mammogram 2D Left (12/31/2024 2:46 PM CDT) Anatomical Region Laterality Modality Breast Left Mammography us Historical Provider MD CARDONA MAMMO PROCEDURES Stephanie l Result * US Breast Right Limited (12/25/2024 2:00 PM CDT) Anatomical Region Laterality Modality Breast Right Mammography us Historical Provider MD CARDONA MAMMO PROCEDURES Stephanie l Result * US Breast Right Limited (12/25/2024 12:20 PM CDT) Anatomical Region Laterality Modality Breast Right Mammography Historical Provider MD CARDONA MAMMO PROCEDURES Stephanie [...] Comment [facility] - 01 Comment:Pj Stein, Cytol ogwillam (ASCP) QC reviewed by Comment [facility] - [...] - 10/20/2024 9:10 AM CDT Performed at: 01 - [facility] [id number] Nut Tapper: Silvia Royal MD, Phone: [phone] Specimen Comment: [id number] Specimen Comment: No. of containers..01 ThinPrep Vial Jeaneth Cormier NP LAB CYTOLOGY ORDERABLES Final Re sult [facility] - 01 from Last 3 Months Insurance [facility] MEDICARE ADVANTAGE Care Teams Family Practice Nurse Practitioner Relationship Specialty Start Date End Date Padma Goodson NP [address] [facility] [address] [place], [place] [phone] PCP - General Family Medicine 06/12/24 Camacho Tao MD [address] [facility] [address] [facility] [address] [place] [address] Referring Physician Cardiovascular Disease 10/02/22 Angel Duong MD [address] [place] [address] Referring Physician Hematology 10/02/22 Triny Conley MD [address] [place] [address] [address] [place] [address] Consulting Physician Sleep Medicine 05/01/23 Skin Care [facility] Budget Analyst 06/12/24
--- OUTSIDE RECORDS SUMMARY | 2025-01-06 13:39 | XMS_ITS | Encounter Summary ---
Author Organization [facility] Address [address] [place] [address] Care Team Providers Care Applications Instructor Name Role Phone Jeaneth Ryan MD Primary Care Provider Encounter Details Date Type Department Care Team (Late st Contact Info) Description 05/11/1998 Outpatient Historical [facility] Internal Medicine [place] [id number] [place] [address] Shabbir Horta MD [address] [place] [phone] Social History Tobacco Use Types Packs/Day Years Used Date Smoking Tobacco: Never Assessed Comments Unknown Sex and Gender Information Value Date Recorded Sex Assigned at Not on file Legal Sex Female 3:52 AM SLIP PRESSER Gender Identity Not on file Sexual Orientation Not on file documented as of this encounter Plan of Treatment Upcoming Encounters Date Type Department Care Team (Late st Contact Info) Description 01/09/2025 10:00 AM SLIP PRESSER Office Visit [facility] Oncology and Hematology - [place] [address] [facility] [address] [place] [address] Angel Duong MD [address] [facility] [address] [place] [address] 03/19/2025 10:45 AM SLIP PRESSER Office Visit [facility] Heart and Vascular At [place] [address] [facility] [address] [place] [phone] Camacho Tao MD [address] [place] [address] [address] [place] [address] 05/13/2025 10:15 AM CDT Office Visit [facility] Oncology and Hematology - [place] [address] [facility] [address] [place] [address] Angel Duong MD [address] [facility] [address] [place] [address] documented as of this encounter Visit Diagnoses Not on filedocumented in this encounter Care Teams Applications Instructor Relationship Specialty Start Date End Date Jeaneth Ryan MD PCP - General Family Practice 03/30/23 documented as of this encounter
--- OUTSIDE RECORDS SUMMARY | 2025-01-06 13:40 | XMS_ITS ---
Author Organization [facility] Address [address] [place] [address] Phone Care Team Providers Care Senior Business Development Analyst Name Role Phone Jeaneth Ryan MD Primary Care Provider Active Problems Patient Care Coordination No te Formatting of this note migh t be different from the original. Dr. Camacho Tao - Extract Operator (HH) Problem Noted Date Diagnosed Date HLD [...]
--- OUTSIDE RECORDS SUMMARY | 2025-01-06 13:40 | XMS_ITS | Clinical Summary ---
Author Organization [facility] Address [address] [place] [address] Phone Care Team Providers Care Faculty Dean Name Role Phone Jeaneth Barr MD Primary [...] from the original. Dr. Camacho Tao - Recreation Therapy Director (HH) Problem Noted Date Diagnosed Date HLD [...] Encounters Date Type Department Care Team Description 01/06/2025 Chart Note [facility] Breast Surgery Judit Laguerre [address] [place] [address] Michelle Rueda 01/01/2025 Orders Only [facility] Oncology and Hematology - [place] [address] [place] [address] Angel Duong MD 12/11/2024 4:30 PM CDT Telephone Check Up [facility] Oncology and Hematology - [place] [address] [place] [address] Angel Duong MD Malignant neoplasm of central portion of right breast (CMS/HCC) (Primary Dx) 12/09/2024 Refill [facility] Heart and Vascular At [place] [address] [facility] [address] [place] [address] Camacho Tao MD 12/05/2024 Orders Only [facility] Oncology and Hematology - [place] [address] [place] [address] Angel Duong MD 12/03/2024 Telephone [facility] Oncology and Hematology - [place] [address] [place] [address] Angel Duong MD repeat lab results 12/02/2024 Orders Only [facility] Oncology and Hematology - [place] [address] [place] [address] Angel Duong MD 11/27/2024 1:15 PM CDT Office Visit [facility] Oncology and Hematology [facility] [address] [place] [address] Angel Doung MD Malignant neoplasm of central portion of right breast (CMS/HCC) (Primary Dx) 2024 Orders Only [facility] Oncology and Hematology [facility] [address] [place] [address] Angel Duong MD 11/18/2024 External Device Data STL ABSTRACTION Provider, Abstract 11/04/2024 External Device Data STL ABSTRACTION Provider, Abstract 11/02/2024 Refill [facility] Oncology and Hematology [facility] [address] [place] [address] Angel Duong MD Malignant neoplasm of central portion of right breast (CMS/HCC) 10/18/2024 Refill [facility] Heart and Vascular At [place] [address] [facility] [address] [place] [address] Camacho Tao MD 10/14/2024 External Device Data [...] on file Legal Sex Female 3:52 AM SOA ENGINEER Gender Identity Not on file Sexual [...] st Contact Info) Description 01/09/2025 10:00 AM SOA ENGINEER Office Visit [facility] Oncology and Hematology - [place] [address] [place] [address] Angel Duong MD [address] [place] [address] [employer] [address] [place] [phone] 03/19/2025 10:45 AM SOA ENGINEER Office Visit [facility] Heart and Vascular At [address] [place] [address] Camacho Tao MD [address] [place] [address] [address] [place] [address] 05/13/2025 10:15 AM CDT Office Visit [facility] Oncology and Hematology [facility] [address] [place] [address] Angel Duong MD [facility] [employer] [address] [place] [phone] Health Maintenance Due Date Last Done Comments Pre-Diabetes and Diabetes Screening 1955 DTAP/TDAP/TD VACCINES (1 - Tdap) 11/25/1975 FIT-DNA Q 3 years 2001 FIT/FOBT Q 1 year 2001 Flex Sig/CT Colonography Q 5 years 2001 PNEUMOCOCCAL VACCINE 50+ YEA RS (1 of 1 - PCV) 2006 ZOSTER VACCINE (1 of 2) 2006 INFLUENZA VACCINE (#1) 2024 BREAST CANCER SCREENING 12/31/2025 01/01/20 25, 12/31/2023, 12/23/2020, Additional history exists COLORECTAL SCREENING 06/25/2028 06/26/2023, 06/26/19 Colorectal Cancer Screening 06/25/2028 OSTEOPOROSIS SCREENING 03/04/2029 , 11/27/2019, 10/25/2016, Additional history exists RSV VACCINE (60+ or ) (1 - 1-dose 75+ series) 11/25/2031 [place] ([place]) Preventative Visit/Annual Wellness Visit Completed 10/15/2024, 04/05/2023 Medical Devices Implanted Type Area Mine Engineering Superintendent Device Identifier Shelf Expiration Date Model / Serial / Lot Log [id number] - Vascular Access Ports - 1 - Port Pwrprt Mri 8fr [id number] Implanted:Qty: 1 on 05/03/2010 at [facility] Port Left: Chest Wall CR BARD- ACCESS SYS 10/04/2011 [id number] / [id number] / [id number] Procedures Procedure Name Priority Date/Time Associated Diagnosis Comments MAMMO SCREENING UNILATERAL LEFT Routine 12/31/2024 10:58 AM CDT PET BONE IMG W CT SKL BSE [...] W VERTEBRAL FX Routine 03/04/2024 12:14 PM SOA ENGINEER COLONOSCOPY REPORT 06/26/2023 9: 23 AM CDT from Last 3 Months or Most Recently Relevant to Health Maintenance Results * MAMMO SCREENING UNILATERAL LEFT (12/31/2024 10:58 AM CDT) Anatomical Region Laterality Modality Breast Left Mammography Result Eric Duong MD MAMMO ORDERABLES Final Result * PET BONE IMG W CT SKB MD (12/04/2024 10:52 AM CDT) Anatomical Region Laterality Modality Positron Emissio n Tomography (PET) Result Eric Duong MD PE ORDERABLES Final Result * [...] DENSITY W VERTEBRAL FX (03/04/2024 12:14 PM SOA ENGINEER) Anatomical Region Laterality Modality Spine Other Result Eric Duong MD DIAGNOSTIC IMAGING ORDERABLES F inal Result * COLONOSCOPY REPORT (06/26/2023 9:23 AM CDT) Narrative Procedure Note Claudia Hinkle MD - 06/26/2023 9:23 AM CDT [facility] Endoscopy Patient Name: Palak Marrero Procedure [...] of Addenda: [address]; [place] [address] Claudia Hinkle MD GI PROCEDURE ORDERABLES Final Result from Last 3 Months or Most Recently Relevant to Health Maintenance Insurance RX [facility] [employer] Advance Directives For more information, please contact: [phone] * Full Code (Latest Code Status on [...] 1:17 PM 05/10/2010 5:45 PM Care Teams Faculty Dean Relationship Specialty Start Date End Date Jeaneth Barr MD PCP - General Family Practice 03/30/23
== END 2025-01-06 11:13 | disposition home or self-care (01) ==
PROVIDERS: PCP Nurse Practitioner Family; Visit Provider Surgery
DX: C50.911 Malignant neoplasm of unspecified site of right female breast (principal); C79.89 Secondary malignant neoplasm of other specified sites
CPT/HCPCS: 77049; A9577; C8908